=== PATIENT | male | born 1940 | race Caucasian/White ===

== ENCOUNTER 2019-06-12 10:18 | Outpatient (RCR) | payer MEDICARE, SELFPAY | END 2019-09-13 10:52 | disposition home or self-care (01) | LOC: CHSSENLIFE 10:18 | PROVIDERS: PCP Internal Medicine; Visit Provider Psychiatry & Neurology Psychiatry | DX: F41.1 Generalized anxiety disorder (principal); F32.9 Major depressive disorder, single episode, unspecified | CPT/HCPCS: 90837; 90853; 99214; G0463 ==

== ENCOUNTER 2019-08-08 09:54 | Outpatient (RCR) | payer MEDICARE, SELFPAY ==
--- NOTE | 2019-08-21 13:12 | PCPTNOTE ---
08/21/19- pt cancelled apt on 08/18/19. hm.
--- NOTE | 2019-08-31 07:51 | PTOPEVAL ---
Thank you for referring this patient to [facility]. Please review, sign, date and return this plan of care [facility]. I agree with and certify that the following plan of care is medically necessary. Referring Physician Date Admitting Provider: Attending Provider: Donnell Avendaño MD Referring Provider: *PT Outpatient Evaluation Start: 08/08/19 10:10 Freq: Status: Active Protocol: Document 08/08/19 10:10 [facility] (Rec: 08/08/19 11:02 [facility] [id number]) Therapy Assessment Status Assessment Status Assessment Status Evaluation Evaluation Information Problem Diagnosis BPPV, cervical DJD Onset 07/25/19 Subjective Information patient reports he has Query Text:As Reported By Patient/ dizziness and heavy eyes with Family walking 1/4 mile. he reports he also has loss of breath with this activity. he reports stopping and breathing relieves these symptoms. he reports he he does have tightness in the ribs during this activity. he reports he also has dizziness with shaking his head side to side. he reports nausea with his activities. he reports longer walking create greater symptoms. he reports this has been going on for about 2 months. he reports he has had a few cardiac tests done, but unsure of the results. Prior Level of Function Comments Additional Prior Level of Function prior to a month or so ago, Comments patient did have symptoms, but reports these symptoms were less than current. he reports prior to 4-5 months ago, no symptoms at all. Pain Assessment Timing of Pain Assessment Timing of Pain Assessment Assessment Self Report Self Report Pain Level 0 Pain Score Pain Score 0: Self Report Additional Pain Score Comments no pain in the neck. he reports no pain currently, mild tightness in the ribs posteriorly. Cervical and Lumbar ROM Cervical ROM Cervical Flexion (0-60) 35 Query Text:Active in Degrees Cervical Extension (0-70) 45 Query Text:Active in Degrees Cervical Lateral Flexion Right (0-50) 20 Q
== END 2019-10-13 16:40 | disposition home or self-care (01) ==
LOC: CHSPT 09:54
PROVIDERS: PCP Internal Medicine; Visit Provider Internal Medicine
DX: H81.10 Benign paroxysmal vertigo, unspecified ear (principal); M19.90 Unspecified osteoarthritis, unspecified site
CPT/HCPCS: 97014; 97110; 97161; 97530; G0283

== ENCOUNTER 2019-09-11 11:47 | Outpatient (CLI) | payer MEDICARE, SELFPAY ==
--- NOTE | 2019-09-11 12:30 | EST_ITS ---
Patient Info Name: Kan Lawson Age: 79 years : 1940 Gender: Male Ht: 67 in Wt: 227 lbs BSA: 2.25 m2 Exam Date: 09/11/2019 12:16 PM Exam Location: [facility] Patient Status: Outpatient Admit Date: 09/11/2019 Staff Ordering Physician: Garett Barker DO Attending Provider: DO ALDA Exam Type: CA stress test treadmill Summary 1. 1. Negative Lazarus exercise stress test for ischemic ST changes by ECG criteria. 2. 2. Good functional capacity, achieving 7.9 METs of workload. 3. 3. Appropriate HR response to exercise. 4. 4. Baseline hypertension with hypertensive response to exercise. 5. 5. Exercise-induced hypoxia to 84% oxygen saturation. 6. 6. Appropriate HR recovery at 1 minute post exercise. 7. 7. No imaging with stress testing. 8. 8. Patient informed of the above results. Protocol: Lazarus Stress ECG Details Stage: REST Duration (min): 2 min : 11 sec Speed (mph): 0.0 Grade (%): 0 HR (bpm): 70 SBP (mmHg): 187 DBP (mmHg): 64 METS: --- Stage: REST Duration (min): 20 min : 14 sec Speed (mph): 0.0 Grade (%): 0 HR (bpm): 73 SBP (mmHg): 160 DBP (mmHg): 72 METS: --- Stage: STAGE 1 Duration (min): 1 min : 0 sec Speed (mph): 1.7 Grade (%): 10 HR (bpm): 91 SBP (mmHg): 160 DBP (mmHg): 72 METS: --- Stage: STAGE 1 Duration (min): 2 min : 0 sec Speed (mph): 1.7 Grade (%): 10 HR (bpm): 100 SBP (mmHg): 160 DBP (mmHg): 72 METS: --- Stage: STAGE 1 Duration (min): 3 min : 0 sec Speed (mph): 1.7 Grade (%): 10 HR (bpm): 109 SBP (mmHg): 191 DBP (mmHg): 84 METS: --- Stage: STAGE 2 Duration (min): 1 min : 0 sec Speed (mph): 2.5 Grade (%): 12 HR (bpm): 116 SBP (mmHg): 191 DBP (mmHg): 84 METS: --- Stage: STAGE 2 Duration (min): 2 min : 0 sec Speed (mph): 2.5 Grade (%): 12 HR (bpm): 125 SBP (mmHg): 191 DBP (mmHg): 84 METS: --- Stage: STAGE 2 Duration (min): 3 min : 0 sec Speed (mph): 2.5 Grade (%): 12 HR (bpm): 134 SBP (mmHg): 214 DBP (mmHg): 68 METS: --- Stage: STAGE 3 Duration (min): 0 min : 30 sec Speed (mph): 3.4 Grade (%): 14 HR (bpm): 141 SBP (mmHg): 214 DBP (mmHg): 68 METS: --- Stage: RECOVERY Duration (min): 0 min : 29 sec Speed (mph): 0.0 Grade (%): 0 HR (bpm): 137 SBP (mmHg): 214 DBP (mmHg): 68 METS: --- Stage: RECOVERY Duration (min): 1 min : 29 sec Speed (mph): 0.0 Grade (%): 0 HR (bpm): 124 SBP (mmHg): 214 DBP (mmHg): 68 METS: --- Stage: RECOVERY Duration (min): 2 min : 29 sec Speed (mph): 0.0 Grade (%): 0 HR (bpm): 115 SBP (mmHg): 251 DBP (mmHg): 69 METS: --- Stage: RECOVERY Duration (min): 3 min : 29 sec Speed (mph): 0.0 Grade (%): 0 HR (bpm): 101 SBP (mmHg): 251 DBP (mmHg): 69
== END 2019-09-11 11:48 | disposition home or self-care (01) ==
PROVIDERS: PCP Internal Medicine; Visit Provider Internal Medicine Cardiovascular Disease
DX: R06.09 Other forms of dyspnea (principal)
CPT/HCPCS: 93017

== ENCOUNTER 2019-09-12 14:29 | Outpatient (RCR) | payer MEDICARE, SELFPAY | END 2019-11-01 15:14 | disposition home or self-care (01) | LOC: CHSSENLIFE 14:29 | PROVIDERS: PCP Internal Medicine; Visit Provider Psychiatry & Neurology Psychiatry | DX: F41.1 Generalized anxiety disorder (principal); F32.9 Major depressive disorder, single episode, unspecified | CPT/HCPCS: 90837; 90853; 99213; G0463 ==

== ENCOUNTER 2019-09-21 12:34 | Outpatient (CLI) | payer MEDICARE, SELFPAY | END 2019-09-21 12:35 | disposition home or self-care (01) | PROVIDERS: PCP Internal Medicine; Visit Provider Internal Medicine Cardiovascular Disease | DX: R06.09 Other forms of dyspnea (principal) | CPT/HCPCS: 94060; 94726; 94729 ==

== ENCOUNTER 2019-12-18 15:43 | Outpatient (CLI) | payer MEDICARE, SELFPAY ==
--- NOTE | ~2019-12-18 | XR_ITS ---
EXAMINATION: XR knee RT 3V EXAM DATE: 12/18/2019 16:23 INDICATION: Chronic bilateral knee pain. TECHNIQUE: Three projections of the right knee. Correlation is made to contralateral knee same date. FINDINGS: There is severe medial right knee tibiofemoral, moderate to severe patellofemoral and moder ate lateral tibiofemoral compartment primary osteoarthritis. There is chondrocalcinosis of the menis ci. Chondrocalcinosis can be an age related finding, but with other possible etiologies including CPP D, parathyroid disorders, hemochromatosis, gout. No joint effusion or acute fracture. IMPRESSION: 1. Severe right knee osteoarthritis. 2. Chondrocalcinosis. Reviewed, dictated and finalized at location G.
--- NOTE | ~2019-12-18 | XR_ITS ---
EXAMINATION: XR knee LT 3V EXAM DATE: 12/18/2019 16:23 INDICATION: Chronic bilateral knee pain. TECHNIQUE: Three projections of the left knee. Correlation is made to contralateral knee same date. FINDINGS: There is moderate to severe left patellofemoral and medial tibiofemoral primary osteoarthri tis. Faint meniscal calcifications, chondrocalcinosis. Chondrocalcinosis can be an age related findi ng, but with other possible etiologies including CPPD, parathyroid disorders, hemochromatosis, gout. Small joint effusion. There are no acute fractures identified. IMPRESSION: 1. Moderate to severe left knee osteoarthritis. 2. Chondrocalcinosis. 3. Small joint effusion. Reviewed, dictated and finalized at location G.
[2019-12-18 16:01] LABS: Basophils Absolute Auto 0.04 K/mm3 (0.00-0.10); Basophils Percent Auto 0.7 % (0.0-1.0); Eosinophils Absolute Auto 0.17 K/mm3 (0.02-0.50); Eosinophils Percent Auto 2.9 % (1.0-6.0); Hematocrit 43.8 % (37.0-46.0); Hemoglobin 15.1 g/dL (12.4-15.3); Immature Granulocyte Absolute 0.02 K/mm3 (0.00-0.00); Immature Granulocyte Percent A 0.3 % (0.0-0.0); Lymphocytes Absolute Auto 2.36 K/mm3 (1.10-4.50); Lymphocytes Percent Auto 39.9 % (18.0-42.0); Mean Corpuscular HGB Conc 34.5 g/dL (32.0-36.0); Mean Corpuscular Hemoglobin 31.3 pg (27.0-31.0); Mean Corpuscular Volume 90.9 fL (78.0-102.0); Mean Platelet Volume 9.6 fl (8.7-11.0); Monocytes Absolute Auto 0.46 K/mm3 (0.10-0.90); Monocytes Percent Auto 7.8 % (2.0-11.0); Neutrophils Absolute Auto 2.9 K/mm3 (1.7-7.2); Neutrophils Percent Auto 48.4 % (50.0-70.0); Platelet Count Result 222 K/mm3 (150-420); Red Blood Count 4.82 M/mm3 (4.70-6.10); Red Cell Distribution Width 13.2 % (11.6-14.4); White Blood Count 5.9 K/mm3 (4.8-10.8)
[2019-12-18 16:32] LABS: Hemoglobin A1C 6.3 % (<5.7)
[2019-12-18 16:39] LABS: Alanine Aminotransferase 36 U/L (16-63); Albumin Level 4.3 g/dL (3.4-5.0); Alkaline Phosphatase 77 U/L (46-116); Anion Gap 14.5 mmol/L (7-16); Aspartate Amino Transferase 27 U/L (15-37); Bilirubin,Total 0.4 mg/dL (0.00-1.00); Blood Urea Nitrogen 20 mg/dL (7-18); Calcium 9.2 mg/dL (8.5-10.1); Carbon Dioxide 27 mmol/L (21-32); Chloride 104 mmol/L (98-108); Cholesterol 172 mg/dL (0-200); Estimated Glomerular Filt Rate > 60; Glucose 102 mg/dL (70-99); HDL Direct 39 mg/dL (40-60); LDL Cholesterol Calculated 93 mg/dL (<130); Osmolality Calculated 294 mOsm/kg (285-295); Potassium 4.5 mmol/L (3.5-5.1); Sodium 141 mmol/L (136-145); Total Protein 7.4 g/dL (6.4-8.2); Triglycerides 201 mg/dL (0-150); Uric Acid 7.6 mg/dL (3.5-7.2)
== END 2019-12-18 15:44 | disposition home or self-care (01) ==
LOC: CHSLAB 15:46
PROVIDERS: PCP Internal Medicine; Visit Provider Internal Medicine
DX: E78.5 Hyperlipidemia, unspecified (principal); E11.9 Type 2 diabetes mellitus without complications; I10 Essential (primary) hypertension; M25.562 Pain in left knee; M25.561 Pain in right knee
CPT/HCPCS: 36415; 73562; 80053; 80061; 83036; 84550; 85025

== ENCOUNTER 2019-12-21 10:22 | Outpatient (RCR) | payer MEDICARE, SELFPAY ==
--- NOTE | 2019-12-21 12:56 | PTOPEVAL ---
Thank you for referring Kan Lawson to [facility]. Please review, sign, date and return this plan of care [facility]. I agree with and certify that the following plan of care is medically necessary. Referring Physician Date Admitting Provider: Attending Provider: Donnell Avendaño MD Referring Provider: *PT Outpatient Evaluation Start: 12/21/19 10:30 Freq: Status: Active Protocol: Document 12/21/19 10:25 [facility] (Rec: 12/21/19 10:56 [facility] [id number]) Therapy Assessment Status Assessment Status Assessment Status Evaluation Outpatient Past Medical History Cardiovascular History Hx Hypercholesterolemia Yes Hx Hypertension Yes Gastrointestinal History Hx Hernia Yes Musculoskeletal History Hx Arthritis Yes Endocrine History Hx Diabetes Yes Psychosocial History Hx Anxiety Yes Evaluation Information Problem Diagnosis bialteral knee pain Onset 09/09/19 Subjective Information Pt. reports that he has had Query Text:As Reported By Patient/ knee pain for many years. He Family reports that he continues to have difficulty and had recent flare up a few months ago. He describes pain on the inside of the bilateral knee joints. He reports that pain stays localized to the knee. He reports that he has undergone xray which has revealed bad arthritis. He reports that his goal for therapy is to be able to walk with less pain and improve mobility. Prior Level of Function Activity Level (Last 3 Months) Occupation retired Hand Dominance Right Activity of Daily Living Ability Independent Indoor/Home Mobility Independent Community Mobility Independent Stairs Ability Independent Functional Cognition (Planning, Shopping Independent , Taking Medications) Cooking Yes Cleaning Yes Laundry Yes Shopping Yes Driving Yes Pain Assessment Pain Scale Pain Scale Used Numeric (1 - 10) Self Report Pain Assessment Bilateral Knee(s) Reported Pain Level 7 Pain Description Aching Other Alleviating Interventions cortisone injections Pain Score Pain S
== END 2020-01-17 15:50 | disposition home or self-care (01) ==
LOC: CHSPT 10:22
PROVIDERS: PCP Internal Medicine; Visit Provider Internal Medicine
DX: M25.562 Pain in left knee (principal); M25.561 Pain in right knee; M17.0 Bilateral primary osteoarthritis of knee
CPT/HCPCS: 97014; 97110; 97161; 97530; G0283

== ENCOUNTER 2020-01-13 00:38 | Outpatient (CLI) | payer MEDICARE, SELFPAY ==
[2020-01-13 16:39] LABS: SARS-CoV-2 RNA PCR Negative
== END 2020-01-13 00:39 | disposition home or self-care (01) ==
LOC: ANHCOVIDDT 00:39
PROVIDERS: PCP Internal Medicine; Visit Provider Internal Medicine Gastroenterology
DX: Z01.818 Encounter for other preprocedural examination (principal); Z11.59 Encounter for screening for other viral diseases
CPT/HCPCS: 87635; C9803; U0003

== ENCOUNTER 2020-01-16 01:09 | Day surgery (SDC) | payer MEDICARE, SELFPAY ==
[2020-01-11 15:27] VITALS: BMI 33.5
[2020-01-16 08:27] VITALS: BP 153/78; PULSE 68; RESP 18; TEMP 37.1; O2SAT 96
[2020-01-16] MEDS: LACTATED RINGERS 1,000 ML 150 ML IV CONT (08:40)
[2020-01-16 08:41] LABS: Glucose Point of Care 101 (65-105)
--- NOTE | 2020-01-16 09:02 | WPDANESEPPF ---
Anes - Initial Pre Proc Eval Procedure: Operation Date: 01/16/20 09:45 Proposed Procedures p Screening Colonoscopy - Antonio Moffett MD Date/Time: 01/16/20 09:02 Surgeon: Antonio Moffett MD Pre Op Diagnosis: neoplasm screening Patient Data Age: 79 Gender: M Height: 5 ft 8 in Weight: 103.3 kg Last Vital Signs Temp 98.7 F 01/16/20 08:27 Pulse 68 01/16/20 08:27 Resp 18 01/16/20 08:27 BP 153/78 H 01/16/20 08:27 Pulse Ox 96 01/16/20 08:27 Allergies Allergy/AdvReac Type Severity Reaction Status Date / Time No Known Allergies Allergy Verified 01/16/20 08:25 Home Medications Medication Instructions Recorded Confirmed Type fluticasone propionate 50 1 spray NASAL DAILY 07/18/19 01/16/20 History mcg/actuation nasal spray,suspension losartan 25 mg tablet 25 mg PO DAILY 07/18/19 01/16/20 History lovastatin 40 mg tablet 40 mg PO DAILY 07/18/19 01/16/20 History terazosin 10 mg capsule 10 mg PO DAILY 07/18/19 01/16/20 History aspirin [Aspirin Low Dose] 81 mg PO DAILY 08/21/19 01/16/20 History famotidine 40 mg PO DAILY 08/21/19 01/16/20 History metformin 250 mg PO DAILY 08/21/19 01/16/20 History duloxetine 60 mg capsule,delayed 60 mg PO DAILY 09/05/19 01/16/20 History release Laboratory Tests 01/16/20 08:35 POC Capillary Glucose 101 mg/dl mg/dl (65-105) Patient hx anesthesia problems: none Family hx anesthesia problems: none PMFSH Past Medical History Medical History (System 11/03/19 @ 10:21 by Irma Schreiber) Anxiety Arthritis BPH (benign prostatic hyperplasia) Depression Hyperlipemia Hypertension Type 2 diabetes mellitus Surgical History Surgical History (System 11/03/19 @ 10:21 by Irma Schreiber) History of cataract removal with insertion of prosthetic lens bilateral History of colonoscopy 2015 History of laparoscopic cholecystectomy 2012 S/P ACL repair Status post meniscectomy BL knee medial Social History Social History (System 11/03/19 @ 10:21 by Irma Alves Smoking status: Former smoker Tobacco type: cigars Alcohol intake: current Anes - Eval Final PreProcedure Day of Procedure 01/16/20 09:02 Patient weight: obese Heart: regular rate and rhythm Lungs: clear to auscultation Airway: Mallampati scale class II Neurological: alert and oriented Last oral intake: >/= 8 hours ASA classification: III Emergent: no Anesthetic plan: proceed Anesthesia type and monitoring: general GIVS and standard monitoring Informed Consent: The patient's anesthetic plan and its attendant risks and benefits were discussed with the patient/family/POA. Questions were solicited and answers provided to the satisfaction of the patient/family/POA.
--- NOTE | 2020-01-16 10:20 | PM.HPGS ---
History of Present Illness History of Present Illness Consent: Risks, benefits, and alternatives have been discussed and questions answered. Patient agrees to proceed with procedure. Chief complaint: neoplasm screening Narrative: Kan Lawson is a 79 year old male with colon polyps 2016 Review of Systems Constitutional: Constitutional: Denies headache(s) and Denies weakness Eyes: Eyes: Denies blurry vision ENT: Reports Normal hearing present, Denies headache(s) and Denies neck pain Cardiovascular: Cardiovascular: Denies chest pain and Denies dyspnea Respiratory: Respiratory: Denies dyspnea Gastrointestinal: Gastrointestinal: Reports no additional gastrointestinal complaints Genitourinary: Genitourinary: Denies dysuria Musculoskeletal: Musculoskeletal: Denies neck pain Integumentary/Breasts: Skin/Breast: Denies dry skin Neurologic: Reports Normal hearing present, Denies headache(s) and Denies weakness Psychiatric: Psychiatric: Denies anxiety Endocrine: Endocrine: Denies change in body appearance Hematologic/Lymphatic: Hematologic/Lymphatic: Denies easy bleeding Allergic/Immunologic: Allergic/Immunologic: Denies urticaria PMFSH Past Medical History Medical History (Updated 01/16/20 @ 10:20 by Antonio Moffett MD) Adenomatous colon polyp Anxiety Arthritis BPH (benign prostatic hyperplasia) Depression Hyperlipemia Hypertension Type 2 diabetes mellitus Surgical History Surgical History (System 11/03/19 @ 10:21 by Irma Schreiber) History of cataract removal with insertion of prosthetic lens bilateral History of colonoscopy 2016 History of laparoscopic cholecystectomy 2013 S/P ACL repair Status post meniscectomy BL knee medial Social History Social History (System 11/03/19 @ 10:21 by Irma Schreiber) Smoking status: Former smoker Tobacco type: cigars Alcohol intake: current Meds Home Medications and Allergies Home Medications Medication Instructions Recorded Confirmed Type fluticasone propionate 50 1 spray NASAL DAILY 07/18/19 01/16/20 History mcg/actuation nasal spray,suspension losartan 25 mg tablet 25 mg PO DAILY 07/18/19 01/16/20 History lovastatin 40 mg tablet 40 mg PO DAILY 07/18/19 01/16/20 History terazosin 10 mg capsule 10 mg PO DAILY 07/18/19 01/16/20 History aspirin [Aspirin Low Dose] 81 mg PO DAILY 08/21/19 01/16/20 History famotidine 40 mg PO DAILY 08/21/19 01/16/20 History metformin 250 mg PO DAILY 08/21/19 01/16/20 History duloxetine 60 mg capsule,delayed 60 mg PO DAILY 09/05/19 01/16/20 History release Allergies Allergy/AdvReac Type Severity Reaction Status Date / Time No Known Allergies Allergy Verified 01/16/20 08:25 Vital Signs Vital Signs - 24 hr 01/16/20 08:27 Temperature 98.7 F Pulse Rate 68 Respiratory Rate 18 Blood Pressure 153/78 H Pulse Oximetry 96 Exam Const: General: comfortable and no acute distress HENMT: General nose exam: Normal nares present Eyes: General: appearance normal, both eyes and all related structures Neck: Neck: no JVD Resp: Auscultation: clear to auscultation bilaterally Cardio: Rate: regular rate Rhythm: regular rhythm GI: Inspection: non-distended GI Palp: Yes Soft to palpation Skin: General skin exam: normal color Neuro: General: gait normal Speech: normal speech Extrem: General: normal to inspection Psych: Mental Status: mental status grossly normal Assessment and Plan Assessment and plan (1) Adenomatous colon polyp: Code(s): D12.6 - Benign neoplasm of colon, unspecified Status: Acute Assessment and Plan: will proceed with colonoscopy (2) Hypertension: Code(s): I10 - Essential (primary) hypertension Status: Acute (3) Hyperlipemia: Code(s): E78.5 - Hyperlipidemia, unspecified Status: Acute
[2020-01-16 11:00] VITALS: BP 118/68; PULSE 66; RESP 21; O2SAT 94
[2020-01-16 11:10] VITALS: BP 126/62; PULSE 60; RESP 19; O2SAT 93
[2020-01-16 11:20] VITALS: BP 164/80; PULSE 68; RESP 21; O2SAT 96
== END 2020-01-16 11:38 | disposition home or self-care (01) ==
PROVIDERS: PCP Internal Medicine; Visit Provider Internal Medicine Gastroenterology
PROC: 0DJD8ZZ Inspection of Lower Intestinal Tract, Via Natural or Artificial Opening Endoscopic (ICD-10-PCS; CPT 45378; principal; 2020-01-16 09:45)
DX: Z12.11 Encounter for screening for malignant neoplasm of colon (principal); D12.2 Benign neoplasm of ascending colon; K57.30 Diverticulosis of large intestine without perforation or abscess without bleeding; K64.8 Other hemorrhoids; I10 Essential (primary) hypertension; E11.9 Type 2 diabetes mellitus without complications; Z79.84 Long term (current) use of oral hypoglycemic drugs; E78.5 Hyperlipidemia, unspecified; F32.9 Major depressive disorder, single episode, unspecified; F41.9 Anxiety disorder, unspecified; Z87.891 Personal history of nicotine dependence
CPT/HCPCS: 45385; 88305; J2704; J7120

== ENCOUNTER 2020-06-19 10:16 | Outpatient (CLI) | payer MEDICARE, SELFPAY ==
[2020-06-19 10:48] LABS: Hemoglobin A1C 6.4 % (<5.7)
[2020-06-19 12:28] LABS: Alanine Aminotransferase 30 U/L (16-63); Albumin Level 3.9 g/dL (3.4-5.0); Alkaline Phosphatase 67 U/L (46-116); Anion Gap 10 mmol/L (8-16); Aspartate Amino Transferase 17 U/L (15-37); Bilirubin,Total 0.4 mg/dL (0.00-1.00); Blood Urea Nitrogen 21 mg/dL (7-18); Calcium 8.8 mg/dL (8.5-10.1); Carbon Dioxide 26 mmol/L (21-32); Chloride 105 mmol/L (98-108); Cholesterol 181 mg/dL (0-200); Estimated Glomerular Filt Rate > 60; Glucose 113 mg/dL (70-99); HDL Direct 35 mg/dL (40-60); LDL Cholesterol Calculated 102 mg/dL (<130); Osmolality Calculated 296 mOsm/kg (285-295); Potassium 4.5 mmol/L (3.5-5.1); Sodium 141 mmol/L (136-145); Triglycerides 220 mg/dL (0-150)
== END 2020-06-19 10:17 | disposition home or self-care (01) ==
LOC: CHSLAB 10:18
PROVIDERS: PCP Internal Medicine; Visit Provider Internal Medicine
DX: E78.5 Hyperlipidemia, unspecified (principal); E11.9 Type 2 diabetes mellitus without complications
CPT/HCPCS: 36415; 80053; 80061; 83036

== ENCOUNTER 2020-11-26 10:57 | Outpatient (CLI) | payer MEDICARE, SELFPAY ==
[2020-11-26 11:10] LABS: Basophils Absolute Auto 0.03 K/mm3 (0.00-0.10); Basophils Percent Auto 0.5 % (0.0-1.0); Eosinophils Absolute Auto 0.19 K/mm3 (0.02-0.50); Eosinophils Percent Auto 3.2 % (1.0-6.0); Hematocrit 46.4 % (37.0-46.0); Hemoglobin 15.9 g/dL (12.4-15.3); Immature Granulocyte Absolute 0.02 K/mm3 (0.00-0.00); Immature Granulocyte Percent A 0.3 % (0.0-0.0); Lymphocytes Absolute Auto 2.09 K/mm3 (1.10-4.50); Lymphocytes Percent Auto 35.1 % (18.0-42.0); Mean Corpuscular HGB Conc 34.3 g/dL (32.0-36.0); Mean Corpuscular Hemoglobin 31.7 pg (27.0-31.0); Mean Corpuscular Volume 92.6 fL (78.0-102.0); Mean Platelet Volume 9.8 fl (8.7-11.0); Monocytes Absolute Auto 0.42 K/mm3 (0.10-0.90); Neutrophils Absolute Auto 3.2 K/mm3 (1.7-7.2); Neutrophils Percent Auto 53.9 % (50.0-70.0); Platelet Count Result 240 K/mm3 (150-420); Red Blood Count 5.01 M/mm3 (4.70-6.10); Red Cell Distribution Width 13.4 % (11.6-14.4)
[2020-11-26 11:43] LABS: Hemoglobin A1C 6.5 % (<5.7)
[2020-11-26 12:05] LABS: Alanine Aminotransferase 31 U/L (16-63); Albumin Level 4.1 g/dL (3.4-5.0); Alkaline Phosphatase 80 U/L (46-116); Anion Gap 8 mmol/L (8-16); Aspartate Amino Transferase 19 U/L (15-37); Bilirubin,Total 0.6 mg/dL (0.00-1.00); Blood Urea Nitrogen 15 mg/dL (7-18); Calcium 9.1 mg/dL (8.5-10.1); Carbon Dioxide 30 mmol/L (21-32); Chloride 103 mmol/L (98-108); Cholesterol 140 mg/dL (0-200); Estimated Glomerular Filt Rate > 60; Glucose 125 mg/dL (70-99); HDL Direct 34 mg/dL (40-60); LDL Cholesterol Calculated 73 mg/dL (<130); Osmolality Calculated 293 mOsm/kg (285-295); Potassium 4.4 mmol/L (3.5-5.1); Prostate Specific Antigen 0.3 ng/mL (< OR = 4.0); Sodium 141 mmol/L (136-145); Total Protein 7.3 g/dL (6.4-8.2); Triglycerides 167 mg/dL (0-150)
== END 2020-11-26 10:58 | disposition home or self-care (01) ==
LOC: CHSLAB 11:00
PROVIDERS: PCP Internal Medicine; Visit Provider Internal Medicine
DX: E11.9 Type 2 diabetes mellitus without complications (principal); I10 Essential (primary) hypertension; E78.5 Hyperlipidemia, unspecified; Z12.5 Encounter for screening for malignant neoplasm of prostate
CPT/HCPCS: 36415; 80053; 80061; 83036; 84153; 85025; G0103

== ENCOUNTER 2021-02-12 11:19 | Emergency (ER) | payer MEDICARE, SELFPAY ==
[2021-02-12 11:38] VITALS: BP 154/98; PULSE 73; RESP 16; TEMP 37; O2SAT 96
[2021-02-12 12:04] LABS: Add Urine Microscopic? YES; Appearance Urine Clear (Clear); Bacteria Urine 1+ /hpf; Bilirubin Urine Negative (Negative); Blood Urine Negative (Negative); Color Urine Light Yellow (Yellow); Glucose Urine UA Negative (Negative); Ketones Urine Negative (Negative); Leukocyte Esterase Ur 1+ (Negative); Nitrate Urine Negative (Negative); Protein Urine Negative (Negative); RBC Urine None seen /hpf (0-2); Squamous Epithelial Cell Urine Rare /hpf (Few)
--- NOTE | 2021-02-12 12:10 | ED.MALEGU ---
HPI - Male Genitourinary General Chief complaint: Urogenital-Male Stated complaint: possible UTI Time Seen by Provider: 02/12/21 12:10 Source: patient Mode of arrival: ambulatory Limitations: no limitations History of Present Illness HPI Narrative: 80-year-old man with a history of UTI, type 2 diabetes, hypertension, hiatal hernia, and dyslipidemia comes emergency department complaining of feeling malaise , urinary frequency and change in the color of his urine for the last 2 or 3 days. He has had no fever, nausea, vomiting, abdominal pain, blood in his urine, feeling faint or syncope. He denies abdominal and flank pain. Onset (ago): day(s) (3) Duration: constant Severity: mild Relieving factors: urination Associated symptoms: Reports denies other symptoms Related Data Home Medications Medication Instructions Recorded Confirmed fluticasone propionate 50 1 spray NASAL DAILY 07/18/19 02/12/21 mcg/actuation nasal spray,suspension losartan 25 mg tablet 25 mg PO DAILY 07/18/19 02/12/21 lovastatin 40 mg tablet 40 mg PO DAILY 07/18/19 02/12/21 terazosin 10 mg capsule 10 mg PO DAILY 07/18/19 02/12/21 aspirin [Aspirin Low Dose] 81 mg PO DAILY 08/21/19 02/12/21 famotidine 40 mg PO DAILY 08/21/19 02/12/21 metformin 250 mg PO DAILY 08/21/19 02/12/21 duloxetine 60 mg capsule,delayed 60 mg PO DAILY 09/05/19 02/12/21 release omega-3 fatty acids 1,000 mg 1,000 mg PO DAILY 11/04/20 02/12/21 capsule Allergies Allergy/AdvReac Type Severity Reaction Status Date / Time No Known Allergies Allergy Verified 11/04/20 15:12 Review of Systems Review of Systems: All systems reviewed & are unremarkable except as noted in HPI and below Constitutional: Constitutional: Denies chills and Denies fever(s) Eyes: Eyes: Denies change in vision and Denies photophobia ENT: Denies nasal congestion and Denies sore throat Cardiovascular: Cardiovascular: Denies chest pain and Denies radiating jaw, neck or arm pain Respiratory: Respiratory: Denies cough and Denies dyspnea Gastrointestinal: Gastrointestinal: Denies abdominal pain and Denies vomiting Genitourinary: Genitourinary: Denies hematuria, Denies dysuria and Reports urinary frequency Musculoskeletal: Musculoskeletal: Denies back pain, Denies arthralgias and Denies joint swelling Integumentary/Breasts: Skin/Breast: Denies pruritus, Denies erythema and Denies rash Neurologic: Denies dizziness, Denies syncope, Denies focal weakness and Reports weakness (mild) Hematologic/Lymphatic: Hematologic/Lymphatic: Denies easy bleeding and Denies easy bruising Allergic/Immunologic: Allergic/Immunologic: Denies lip swelling and Denies throat swelling PMFSH Past Medical History Medical History Adenomatous colon polyp Anxiety Arthritis BPH (benign prostatic hyperplasia) Depression Hyperlipemia Hypertension Type 2 diabetes mellitus Surgical History Surgical History History of cataract removal with insertion of prosthetic lens bilateral History of colonoscopy 2015 History of laparoscopic cholecystectomy 2012 S/P ACL repair Status post meniscectomy BL knee medial Family History Family History (System 11/03/19 @ 10:21 by Irma Schreiber) Father Diabetes mellitus Coronary artery abnormality Mother Anxiety Sibling Lung cancer Social History Social History Smoking status: Former smoker Tobacco type: cigars Alcohol intake: current Exam Const: General: healthy appearing, no acute distress and alert Orientation/consciousness: patient oriented x3 Limitations: no limitations HENMT: Head: normal to inspection General nose exam: Normal external nose present Face and sinus: normal facial exam Mouth: Yes moist mucous membranes Throat: posterior oropharynx normal Eyes: Conjunctivae: conj
[2021-02-12 12:36] VITALS: BP 138/72; PULSE 73; RESP 16; O2SAT 97
== END 2021-02-12 12:40 | disposition home or self-care (01) ==
PROVIDERS: Emergency Provider Emergency Medicine; PCP Internal Medicine
DX: N39.0 Urinary tract infection, site not specified (principal)
CPT/HCPCS: 81001; 87077; 87086; 87088; 87186; 99283

== ENCOUNTER 2021-04-04 15:19 | Outpatient (NON) | payer MEDICARE, SELFPAY ==
[2021-04-04 16:01] LABS: Add Urine Microscopic? YES; Appearance Urine Clear (Clear); Bilirubin Urine Negative (Negative); Blood Urine Negative (Negative); Color Urine Light Yellow (Yellow); Glucose Urine UA Negative (Negative); Ketones Urine Negative (Negative); Leukocyte Esterase Ur 3+ (Negative); Nitrate Urine Negative (Negative); Protein Urine Negative (Negative); Specific Grav Ur <= 1.005 (1.010-1.020); Urobilinogen Urine 0.2 mg/dL (0.2-1.0)
[2021-04-04 16:20] LABS: RBC Urine 0-2 /hpf (0-2)
[2021-04-04 16:21] LABS: Bacteria Urine Trace /hpf; Squamous Epithelial Cell Urine Few /hpf (Few)
== END 2021-04-04 15:20 | disposition home or self-care (01) ==
LOC: CHSLAB 15:20
PROVIDERS: Visit Provider Urology
DX: N39.0 Urinary tract infection, site not specified (principal)
CPT/HCPCS: 81001; 87077; 87086; 87088; 87186

== ENCOUNTER 2021-04-18 19:23 | Emergency (ER) | payer MEDICARE, SELFPAY ==
--- NOTE | ~2021-04-18 | CT_ITS ---
EXAMINATION: CT brain wo con DATE: 04/18/2021 20:23 INDICATION: Dizziness and weakness TECHNIQUE: Computed tomography (CT) of the head was performed without intravenous contrast. The dose- length product was 681.00 mGy-cm. Automated exposure control and iterative reconstruction technique w ere employed. COMPARISON: CT dated 04/01/2019 FINDINGS: There are chronic age-related findings. There are scattered mild periventricular and subcor tical white matter changes, most likely related to small vessel ischemic disease (microangiopathy). N o ventriculomegaly or midline shift. No acute intracranial hemorrhage, infarction, mass or mass effec t. Basilar cisterns are patent. There is intracranial atherosclerosis. 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 No abnormal fluid or air-fluid levels. Mastoids are pneumatized. No depressed sku ll fractures. IMPRESSION: 1. No acute intracranial abnormality. Reviewed, dictated and finalized at location A.
--- NOTE | ~2021-04-18 | XR_ITS ---
XR chest 1V portable 04/18/2021 20:22 Indication: Weakness and dizziness Procedure: AP portable chest Comparison: 08/21/2019 Findings: Heart size normal. Left basilar atelectasis. No focal pneumonia, edema, pleural effusion or pneumothorax. Impression: 1: Left basilar atelectasis. Reviewed, dictated and finalized at location A. Impression: 1: Left basilar atelectasis.
[2021-04-18 19:43] VITALS: BP 164/93; PULSE 92; RESP 16; TEMP 37; O2SAT 95
[2021-04-18 19:46] VITALS: BP 153/81; PULSE 104; RESP 16; O2SAT 96
[2021-04-18 19:47] LABS: Add Urine Microscopic? NO; Appearance Urine Clear (Clear); Bilirubin Urine Negative (Negative); Blood Urine Negative (Negative); Color Urine Light Yellow (Yellow); Glucose Urine UA Negative (Negative); Ketones Urine Negative (Negative); Leukocyte Esterase Ur Negative LEU/UL (Negative); Nitrate Urine Negative (Negative); Protein Urine Negative (Negative); Urobilinogen Urine 0.2 mg/dL (0.2-1.0); pH Urine 5.5 (5.0-8.0)
--- NOTE | 2021-04-18 19:54 | ECG_ITS ---
Measurements Intervals [place] Rate: 65 P: 66 NH: 192 QRS: 15 QRSD: 112 T: 35 QT: 396 QTc: 414 Interpretive Statements SINUS RHYTHM DELAYED PRECORDIAL R/S TRANSITION BASELINE ARTIFACT- I, II, III, AVR, AVL, AVF, V1-V3 NORMAL ECG Electronically Signed On 04-21-2021 7:51:06 CDT by Garett Barker D.O.
[2021-04-18] MEDS: SODIUM CHLORIDE 0.9% IV 500 ML 999 ML IV CONT (20:15)
[2021-04-18 20:29] LABS: Basophils Absolute Auto 0.04 K/mm3 (0.00-0.10); Basophils Percent Auto 0.5 % (0.0-1.0); Eosinophils Absolute Auto 0.09 K/mm3 (0.02-0.50); Eosinophils Percent Auto 1.1 % (1.0-6.0); Hematocrit 42.2 % (37.0-46.0); Hemoglobin 14.6 g/dL (12.4-15.3); Immature Granulocyte Absolute 0.03 K/mm3 (0.00-0.00); Immature Granulocyte Percent A 0.4 % (0.0-0.0); Lymphocytes Absolute Auto 2.31 K/mm3 (1.10-4.50); Lymphocytes Percent Auto 28.4 % (18.0-42.0); Mean Corpuscular HGB Conc 34.6 g/dL (32.0-36.0); Mean Corpuscular Hemoglobin 31.8 pg (27.0-31.0); Mean Corpuscular Volume 91.9 fL (78.0-102.0); Mean Platelet Volume 9.6 fl (8.7-11.0); Monocytes Absolute Auto 0.43 K/mm3 (0.10-0.90); Monocytes Percent Auto 5.3 % (2.0-11.0); Neutrophils Absolute Auto 5.2 K/mm3 (1.7-7.2); Neutrophils Percent Auto 64.3 % (50.0-70.0); Platelet Count Result 251 K/mm3 (150-420); Red Blood Count 4.59 M/mm3 (4.70-6.10); Red Cell Distribution Width 12.8 % (11.6-14.4); White Blood Count 8.1 K/mm3 (4.8-10.8)
[2021-04-18 20:46] LABS: Alanine Aminotransferase 38 U/L (16-63); Albumin Level 4.2 g/dL (3.4-5.0); Alkaline Phosphatase 79 U/L (46-116); Anion Gap 10 mmol/L (8-16); Aspartate Amino Transferase 19 U/L (15-37); Bilirubin,Total 0.4 mg/dL (0.00-1.00); Blood Urea Nitrogen 15 mg/dL (7-18); Calcium 9.4 mg/dL (8.5-10.1); Carbon Dioxide 27 mmol/L (21-32); Chloride 101 mmol/L (98-108); Estimated CRCL calculation 35 ml/min; Estimated Glomerular Filt Rate 59; Glucose 109 mg/dL (70-99); Osmolality Calculated 287 mOsm/kg (285-295); Potassium 4.2 mmol/L (3.5-5.1); Sodium 138 mmol/L (136-145); Total Protein 7.5 g/dL (6.4-8.2); Troponin I 5.3 ng/L (0.00-60.4)
--- NOTE | 2021-04-18 21:11 | ED.GENADULT ---
HPI - General Adult General Chief complaint: Unspecified Stated complaint: dizziness upon standing/making large movements Time Seen by Provider: 04/18/21 19:45 Source: patient and RN notes reviewed Mode of arrival: ambulatory Limitations: no limitations History of Present Illness complaint: resolved dizziness episode x several hrs ago. no acute sxs in the ED. Onset (ago): hour(s) (6) Severity: mild Quality: other (no dizziness or light-headedness in the ED) Pain Consistency: other (pt was pain-free in the ED) Relieving factors: none Exacerbating factors: none Associated symptoms: denies other symptoms Treatments prior to arrival: none Related Data Home Medications Medication Instructions Recorded Confirmed fluticasone propionate 50 1 spray NASAL DAILY 07/18/19 04/18/21 mcg/actuation nasal spray,suspension losartan 25 mg tablet 25 mg PO DAILY 07/18/19 04/18/21 lovastatin 40 mg tablet 40 mg PO DAILY 07/18/19 04/18/21 terazosin 10 mg capsule 10 mg PO DAILY 07/18/19 04/18/21 aspirin [Aspirin Low Dose] 81 mg PO DAILY 08/21/19 04/18/21 famotidine 40 mg PO DAILY 08/21/19 04/18/21 metformin 250 mg PO DAILY 08/21/19 04/18/21 duloxetine 60 mg capsule,delayed 60 mg PO DAILY 09/05/19 04/18/21 release omega-3 fatty acids 1,000 mg 1,000 mg PO DAILY 11/04/20 04/18/21 capsule Allergies Allergy/AdvReac Type Severity Reaction Status Date / Time No Known Allergies Allergy Verified 11/04/20 15:12 Review of Systems Review of Systems: All systems reviewed & are unremarkable except as noted in HPI and below PMFSH Past Medical History Medical History Adenomatous colon polyp Anxiety Arthritis BPH (benign prostatic hyperplasia) Depression Hyperlipemia Hypertension Type 2 diabetes mellitus Surgical History Surgical History History of cataract removal with insertion of prosthetic lens bilateral History of colonoscopy 2015 History of laparoscopic cholecystectomy 2013 S/P ACL repair Status post meniscectomy BL knee medial Family History Family History (System 11/03/19 @ 10:21 by Irma Schreiber) Father Diabetes mellitus Coronary artery abnormality Mother Anxiety Sibling Lung cancer Social History Social History Smoking status: Former smoker Tobacco type: cigars Alcohol intake: current Exam Const: General: cooperative, no acute distress and well developed Orientation/consciousness: patient oriented x3 Limitations: no limitations HENMT: Head: normocephalic and atraumatic Ears: hearing grossly normal bilaterally, external ears normal and TM's normal bilaterally General nose exam: Normal external nose present and Normal nares present Face and sinus: normal facial exam Mouth: Yes Normal oral and palatal mucosa present, Yes lip normal, Yes tongue normal and Yes moist mucous membranes Teeth and gingiva: dentition normal Throat: posterior oropharynx normal Eyes: General: appearance normal, both eyes and all related structures Visual Hill: normal visual hill by confrontation Periorbital: periorbital findings normal Eyelids: eyelids normal Conjunctivae: conjunctivae normal Pupils: Equal, round and reactive pupils present EOM: EOMs intact bilaterally Neck: Neck: normal visual inspection, full ROM, no lymphadenopathy and no meningeal signs Chest: Chest palpation & inspection: normal inspection of the chest Resp: Effort & Inspection: normal respiratory effort Auscultation: clear to auscultation bilaterally Percussion: percussion normal Cardio: Rate: regular rate Rhythm: regular rhythm GI: Inspection: normal to inspection GI Palp: Yes Soft to palpation Percussion: Yes normal to percussion Auscultation: normal bowel sounds : General: Yes bladder normal to palpation Back/Spine/Pelvis: Back: no CVA tend
[2021-04-18 21:20] VITALS: BP 150/74; PULSE 90; RESP 19; TEMP 36.6; O2SAT 98
== END 2021-04-18 21:30 | disposition home or self-care (01) ==
PROVIDERS: Emergency Provider Emergency Medicine; PCP Internal Medicine
DX: R42 Dizziness and giddiness (principal); T67.2XXA Heat cramp, initial encounter; E78.5 Hyperlipidemia, unspecified; I10 Essential (primary) hypertension; E11.9 Type 2 diabetes mellitus without complications; Z87.891 Personal history of nicotine dependence
CPT/HCPCS: 36415; 70450; 71045; 80053; 81003; 83605; 84484; 85025; 93005; 96360; 99283; 99284; J7040

== ENCOUNTER 2021-08-05 11:05 | Outpatient (CLI) | payer MEDICARE, SELFPAY ==
[2021-08-05 11:26] LABS: Basophils Absolute Auto 0.03 K/mm3 (0.00-0.10); Basophils Percent Auto 0.5 % (0.0-1.0); Eosinophils Absolute Auto 0.16 K/mm3 (0.02-0.50); Eosinophils Percent Auto 2.8 % (1.0-6.0); Hematocrit 45.9 % (37.0-46.0); Hemoglobin 15.5 g/dL (12.4-15.3); Immature Granulocyte Absolute 0.02 K/mm3 (0.00-0.00); Immature Granulocyte Percent A 0.4 % (0.0-0.0); Lymphocytes Percent Auto 33.4 % (18.0-42.0); Mean Corpuscular HGB Conc 33.8 g/dL (32.0-36.0); Mean Corpuscular Hemoglobin 32.2 pg (27.0-31.0); Mean Corpuscular Volume 95.4 fL (78.0-102.0); Mean Platelet Volume 9.3 fl (8.7-11.0); Monocytes Absolute Auto 0.41 K/mm3 (0.10-0.90); Monocytes Percent Auto 7.2 % (2.0-11.0); Neutrophils Absolute Auto 3.2 K/mm3 (1.7-7.2); Neutrophils Percent Auto 55.7 % (50.0-70.0); Platelet Count Result 268 K/mm3 (150-420); Red Blood Count 4.81 M/mm3 (4.70-6.10); Red Cell Distribution Width 12.2 % (11.6-14.4); White Blood Count 5.7 K/mm3 (4.8-10.8)
[2021-08-05 11:35] LABS: Hemoglobin A1C 6.1 % (<5.7)
[2021-08-05 12:20] LABS: Alanine Aminotransferase 27 U/L (16-63); Albumin Level 4.3 g/dL (3.4-5.0); Alkaline Phosphatase 77 U/L (46-116); Anion Gap 7 mmol/L (8-16); Aspartate Amino Transferase 20 U/L (15-37); Bilirubin,Total 0.5 mg/dL (0.00-1.00); Blood Urea Nitrogen 15 mg/dL (7-18); Calcium 9.4 mg/dL (8.5-10.1); Carbon Dioxide 30 mmol/L (21-32); Chloride 104 mmol/L (98-108); Cholesterol 174 mg/dL (0-200); Estimated Glomerular Filt Rate > 60; Glucose 106 mg/dL (70-99); HDL Direct 41 mg/dL (40-60); LDL Cholesterol Calculated 105 mg/dL (<130); Osmolality Calculated 292 mOsm/kg (285-295); Potassium 4.5 mmol/L (3.5-5.1); Sodium 141 mmol/L (136-145); Total Protein 7.5 g/dL (6.4-8.2); Triglycerides 140 mg/dL (0-150)
== END 2021-08-05 11:06 | disposition home or self-care (01) ==
LOC: CHSLAB 11:07
PROVIDERS: PCP Internal Medicine; Visit Provider Internal Medicine
DX: E11.9 Type 2 diabetes mellitus without complications (principal)
CPT/HCPCS: 36415; 80053; 80061; 83036; 85025

== ENCOUNTER 2021-08-08 19:44 | Emergency (ER) | payer MEDICARE, SELFPAY ==
[2021-08-08 20:00] VITALS: BP 166/88; PULSE 94; RESP 18; TEMP 36.2; O2SAT 96
--- NOTE | 2021-08-08 20:30 | ED.MALEGU ---
HPI - Male Genitourinary General Chief complaint: Urogenital-Male Stated complaint: UTI Source: patient Mode of arrival: ambulatory Limitations: no limitations History of Present Illness HPI Narrative: this is a 81-year-old gentleman presents with history of BPH currently on terazosin and follows with Urology, the patient has been having difficulty passing urine all over the last 12hours, has chronic UTIs and sees Urology and currently on Cipro long-term. Currently no fever chills no abdominal pain no flank pain no dysuria, no hematuria, patient has no urinary retention. Onset (ago): hour(s) Duration: constant Severity: moderate Related Data Home Medications Medication Instructions Recorded Confirmed fluticasone propionate 50 1 spray NASAL DAILY 07/18/19 08/08/21 mcg/actuation nasal spray,suspension losartan 25 mg tablet 25 mg PO DAILY 07/18/19 08/08/21 lovastatin 40 mg tablet 40 mg PO DAILY 07/18/19 08/08/21 terazosin 10 mg capsule 10 mg PO DAILY 07/18/19 08/08/21 aspirin [Aspirin Low Dose] 81 mg PO DAILY 08/21/19 08/08/21 famotidine 40 mg PO DAILY 08/21/19 08/08/21 duloxetine 60 mg capsule,delayed 60 mg PO DAILY 09/05/19 08/08/21 release omega-3 fatty acids 1,000 mg 1,000 mg PO DAILY 11/04/20 08/08/21 capsule ciprofloxacin HCl 500 mg PO BID 08/08/21 08/08/21 Allergies Allergy/AdvReac Type Severity Reaction Status Date / Time No Known Allergies Allergy Verified 05/05/21 14:26 Review of Systems Review of Systems: All systems reviewed & are unremarkable except as noted in HPI and below PMFSH Past Medical History Medical History Adenomatous colon polyp Anxiety Arthritis BPH (benign prostatic hyperplasia) Depression Hyperlipemia Hypertension Type 2 diabetes mellitus Surgical History Surgical History History of cataract removal with insertion of prosthetic lens bilateral History of colonoscopy 2015 History of laparoscopic cholecystectomy 2012 S/P ACL repair Status post meniscectomy BL knee medial Family History Family History Father Diabetes mellitus Coronary artery abnormality Mother Anxiety Sibling Lung cancer Social History Social History Smoking status: Former smoker Tobacco type: cigars Alcohol intake: current Exam Const: General: healthy appearing, no acute distress and alert HENMT: Head: normal to inspection Eyes: Conjunctivae: conjunctivae normal Pupils: Equal, round and reactive pupils present EOM: EOMs intact bilaterally Direct Ophthalmoscopy: no photophobia Neck: Neck: normal visual inspection Chest: Chest palpation & inspection: normal inspection of the chest Resp: Effort & Inspection: normal respiratory effort Cardio: Rate: regular rate GI: GI Palp: Yes Soft to palpation Percussion: Yes normal to percussion : General: Yes Bladder palpation abnormal Other: Urinary retention Back/Spine/Pelvis: Back: no CVA tenderness Skin: General skin exam: normal color Rashes: no rashes Neuro: General: patient oriented x3 Extrem: General: normal to inspection and no pedal edema Psych: Mental Status: mental status grossly normal Affect: normal affect Course Course Emergency Course: patient was straight cath and 1100cc of clear urine was removed, the patient symptom of retention have has improved, UA was not performed since the patient has currently on Cipro, patient is afebrile, will leave a Perdomo catheter and advised follow-up with his urologist on Wednesday. Vital Signs Vital signs: Vital Signs Temperature 36.2 C L 08/08/21 20:00 Pulse Rate 94 08/08/21 20:00 Respiratory Rate 18 08/08/21 20:00 Blood Pressure 166/88 H 08/08/21 20:00 Pulse Oximetry 96 08/08/21 20:00 Temperature 36.2 C L 08/08/21
--- NOTE | 2021-08-08 20:40 | PC.NURSE ---
Straight cath inserted per ERP order, immediate return of 1100 ml urine output noted. ERp ordered catheter to placed so pt can go home c it and see his urologist on Wednesday. 16F coude placed due to noted enlarged prostate. Pt informed on how to care for catheter at home.
[2021-08-08 21:09] VITALS: BP 150/78; PULSE 87; RESP 18; TEMP 36.6; O2SAT 96
== END 2021-08-08 21:05 | disposition home or self-care (01) ==
PROVIDERS: Emergency Provider Emergency Medicine; PCP Internal Medicine
DX: R33.9 Retention of urine, unspecified (principal); E78.5 Hyperlipidemia, unspecified; I10 Essential (primary) hypertension; E11.9 Type 2 diabetes mellitus without complications; Z87.891 Personal history of nicotine dependence
CPT/HCPCS: 51701; 99282; 99283

== ENCOUNTER 2021-09-06 09:02 | Emergency (ER) | payer MEDICARE, SELFPAY ==
[2021-09-06 09:05] VITALS: BP 97/58; PULSE 87; RESP 20; TEMP 36.3; O2SAT 98
[2021-09-06 09:44] LABS: Add Urine Microscopic? NO; Appearance Urine Clear (Clear); Bilirubin Urine Negative (Negative); Blood Urine Negative (Negative); Color Urine Yellow (Yellow); Glucose Urine UA Negative (Negative); Ketones Urine Negative (Negative); Leukocyte Esterase Ur Negative LEU/UL (Negative); Nitrate Urine Negative (Negative); Protein Urine Negative (Negative); Specific Grav Ur 1.025 (1.010-1.020); Urobilinogen Urine 0.2 mg/dL (0.2-1.0); pH Urine 5.5 (5.0-8.0)
--- NOTE | 2021-09-06 10:09 | ED.ABDPAIN ---
HPI - Abdominal Pain General Chief Complaint: Urogenital-Male Stated Complaint: can not urinate Time Seen by Provider: 09/06/21 09:04 Source: patient and RN notes reviewed Mode of arrival: ambulatory Limitations: no limitations History of Present Illness MD elicited complaint: other (unable to pass urine x several hrs.) Pertinent past history: past UTI and other (BPH) Onset (ago): hour(s) (6) Pain Consistency: other (pain-free.) Location: suprapubic Severity: mild Pain scale (0-10): 0 Quality: cramping Radiation: none Migration to: no migration Relieving factors: nothing Associated symptoms: denies other symptoms Related Data Home Medications Medication Instructions Recorded Confirmed fluticasone propionate 50 1 spray NASAL DAILY 07/18/19 09/06/21 mcg/actuation nasal spray,suspension losartan 25 mg tablet 25 mg PO DAILY 07/18/19 09/06/21 lovastatin 40 mg tablet 40 mg PO DAILY 07/18/19 09/06/21 terazosin 10 mg capsule 10 mg PO DAILY 07/18/19 09/06/21 aspirin [Aspirin Low Dose] 81 mg PO DAILY 08/21/19 09/06/21 famotidine 40 mg PO DAILY 08/21/19 09/06/21 duloxetine 60 mg capsule,delayed 60 mg PO DAILY 09/05/19 09/06/21 release omega-3 fatty acids 1,000 mg 1,000 mg PO DAILY 11/04/20 09/06/21 capsule ciprofloxacin HCl 500 mg PO BID 08/08/21 09/06/21 Allergies Allergy/AdvReac Type Severity Reaction Status Date / Time No Known Allergies Allergy Verified 05/05/21 14:26 Review of Systems Review of Systems: All systems reviewed & are unremarkable except as noted in HPI and below Genitourinary: Genitourinary: Reports oliguria PMFSH Past Medical History Medical History Adenomatous colon polyp Anxiety Arthritis BPH (benign prostatic hyperplasia) Depression Hyperlipemia Hypertension Type 2 diabetes mellitus Surgical History Surgical History History of cataract removal with insertion of prosthetic lens bilateral History of colonoscopy 2015 History of laparoscopic cholecystectomy 2013 S/P ACL repair Status post meniscectomy BL knee medial Family History Family History Father Diabetes mellitus Coronary artery abnormality Mother Anxiety Sibling Lung cancer Social History Social History Smoking status: Former smoker Tobacco type: cigars Alcohol intake: current Exam Const: General: no acute distress Orientation/consciousness: patient oriented x3 HENMT: Head: normal to inspection Ears: TM's normal bilaterally General nose exam: Normal external nose present and Normal nares present Face and sinus: normal facial exam Mouth: Yes lip normal and Yes moist mucous membranes Teeth and gingiva: dentition normal Eyes: Conjunctivae: conjunctivae normal Pupils: Equal, round and reactive pupils present EOM: EOMs intact bilaterally Neck: Neck: normal visual inspection and no lymphadenopathy Chest: Chest palpation & inspection: normal inspection of the chest Resp: Effort & Inspection: normal respiratory effort Auscultation: clear to auscultation bilaterally Cardio: Rate: regular rate Rhythm: regular rhythm GI: GI Palp: Yes Soft to palpation and No Tenderness to palpation present (GI) Auscultation: normal bowel sounds : General: Yes bladder normal to palpation and Yes no CVA tenderness Male General Exam: Yes normal external exam Testes: Testes normal Urinary Catheter: Urinary Catheter: patent and draining Back/Spine/Pelvis: Back: no CVA tenderness Skin: General skin exam: normal color Neuro: General: patient oriented x3, moves all extremities, no meningeal signs, no focal motor deficits and CN's II-XI intact bilaterally Extrem: General: normal to inspection and no pedal edema Psych: Appearance: grossly normal and well kempt Mental Status: men
[2021-09-06 10:26] VITALS: BP 98/57; PULSE 87; RESP 20; TEMP 36.1; O2SAT 97
== END 2021-09-06 10:30 | disposition home or self-care (01) ==
PROVIDERS: Emergency Provider Emergency Medicine; PCP Internal Medicine
DX: R33.9 Retention of urine, unspecified (principal); E78.5 Hyperlipidemia, unspecified; I10 Essential (primary) hypertension; E11.9 Type 2 diabetes mellitus without complications
CPT/HCPCS: 51701; 81003; 99282; 99283

== ENCOUNTER 2021-09-08 06:28 | Emergency (ER) | payer MEDICARE, SELFPAY ==
[2021-09-08 06:30] VITALS: BP 143/66; PULSE 68; RESP 16; TEMP 36.6; O2SAT 96
--- NOTE | 2021-09-08 07:35 | ED.MALEGU ---
HPI - Male Genitourinary General Chief complaint: Urogenital-Male Stated complaint: Ambulance Time Seen by Provider: 09/08/21 07:35 Source: patient Mode of arrival: ambulatory History of Present Illness HPI Narrative: this is a 81-year-old gentleman that history of an prostatic hypertrophy and is following with a urologist, the patient presented on Wednesday the 28 of August with difficulty passing urine and indwelling Perdomo catheter was placed and the patient was discharged with some antibiotics. Patient presents again to the emergency department with an episode of constipation that according to the patient has resolved, currently has an indwelling catheter as passing urine with no fever chills no nausea vomiting no abdominal pain no suprapubic tenderness. Patient has a scheduled appointment with his urologist on . Onset (ago): day(s) Related Data Home Medications Medication Instructions Recorded Confirmed fluticasone propionate 50 1 spray NASAL DAILY 07/18/19 09/08/21 mcg/actuation nasal spray,suspension losartan 25 mg tablet 25 mg PO DAILY 07/18/19 09/08/21 lovastatin 40 mg tablet 40 mg PO DAILY 07/18/19 09/08/21 terazosin 10 mg capsule 10 mg PO DAILY 07/18/19 09/08/21 aspirin [Aspirin Low Dose] 81 mg PO DAILY 08/21/19 09/08/21 famotidine 40 mg PO DAILY 08/21/19 09/08/21 duloxetine 60 mg capsule,delayed 60 mg PO DAILY 09/05/19 09/08/21 release omega-3 fatty acids 1,000 mg 1,000 mg PO DAILY 11/04/20 09/08/21 capsule ciprofloxacin HCl 500 mg PO BID 08/08/21 09/08/21 Allergies Allergy/AdvReac Type Severity Reaction Status Date / Time No Known Allergies Allergy Verified 09/08/21 06:50 Review of Systems Review of Systems: All systems reviewed & are unremarkable except as noted in HPI and below PMFSH Past Medical History Medical History Adenomatous colon polyp Anxiety Arthritis BPH (benign prostatic hyperplasia) Depression Hyperlipemia Hypertension Type 2 diabetes mellitus Surgical History Surgical History History of cataract removal with insertion of prosthetic lens bilateral History of colonoscopy 2016 History of laparoscopic cholecystectomy 2013 S/P ACL repair Status post meniscectomy BL knee medial Family History Family History Father Diabetes mellitus Coronary artery abnormality Mother Anxiety Sibling Lung cancer Social History Social History Smoking status: Former smoker Tobacco type: cigars Alcohol intake: current Exam Const: General: healthy appearing, no acute distress and alert HENMT: Head: normal to inspection Eyes: Conjunctivae: conjunctivae normal Pupils: Equal, round and reactive pupils present Neck: Neck: normal visual inspection and no lymphadenopathy Chest: Chest palpation & inspection: normal inspection of the chest Resp: Effort & Inspection: normal respiratory effort Auscultation: clear to auscultation bilaterally Cardio: Rate: regular rate Rhythm: regular rhythm GI: GI Palp: Yes Soft to palpation Percussion: Yes normal to percussion : Testes: Testes normal Other: has an indwelling Perdomo catheter Urinary Catheter: Urinary Catheter: patent and draining and urine clear Back/Spine/Pelvis: Back: no CVA tenderness Skin: General skin exam: normal color Rashes: no rashes Neuro: General: patient oriented x3, moves all extremities, no meningeal signs and no focal motor deficits Extrem: General: normal to inspection and no pedal edema Psych: Mental Status: mental status grossly normal Affect: normal affect Attitude: cooperative Course Course Emergency Course: patient's symptoms have resolved, advised to continue indwelling Perdomo catheter complete course of antibiotics and advised to follow-up s
[2021-09-08 07:46] VITALS: BP 123/64; PULSE 64; RESP 20; O2SAT 96
== END 2021-09-08 08:00 | disposition home or self-care (01) ==
PROVIDERS: Emergency Provider Emergency Medicine; PCP Internal Medicine
DX: N40.1 Benign prostatic hyperplasia with lower urinary tract symptoms (principal); E78.5 Hyperlipidemia, unspecified; I10 Essential (primary) hypertension; E11.9 Type 2 diabetes mellitus without complications; Z87.891 Personal history of nicotine dependence
CPT/HCPCS: 99282

== ENCOUNTER 2021-10-27 15:04 | Outpatient (CLI) | payer MEDICARE, SELFPAY ==
--- NOTE | ~2021-10-27 | XR_ITS ---
EXAMINATION: XR chest 2V EXAM DATE: 10/27/2021 15:34 INDICATION: SOB/elevated BP chest tightness upon exertion. TECHNIQUE: Frontal and lateral projections of the chest obtained and reviewed. Comparison is made to prior examination from 04/18/2021. FINDINGS: Small amount of basilar airspace disease, clinical correlation for atelectasis versus pneum onia. No pneumothorax or pleural effusion. Cardiomediastinal silhouette is normal. There are no osseo us abnormalities identified. IMPRESSION: Small amount of basilar atelectasis or pneumonia. Reviewed, dictated and finalized at location G.
--- NOTE | ~2021-10-27 | CT_ITS ---
EXAMINATION: CTA chest PE protocol DATE: 10/27/2021 16:46 INDICATION: Shortness of breath TECHNIQUE: Computed tomography angiography (CTA) of the chest was performed with 100 mL Omnipaque-350 intravenous contrast timed to evaluate the pulmonary arteries. Coronal maximum intensity projection 3D-reconstructions were created by the technologist. The dose-length product (DLP) was 696.57 mGy-cm. Automated exposure control and iterative reconstruction technique were employed. COMPARISON: None. FINDINGS: The pulmonary arteries are moderately well-opacified. No pulmonary embolism is identified. There is mild dependent atelectasis. The lungs are free of focal airspace opacities. There is no pleu ral effusion or pneumothorax. A small sliding hiatal hernia is noted. No pathologically enlarged thor acic lymph nodes are identified. The heart size is normal. The gallbladder is surgically absent. Ther e is severe thoracic spondylosis. IMPRESSION: 1. No pulmonary embolism or acute cardiopulmonary abnormality. Reviewed, dictated and finalized at location B.
[2021-10-27 15:20] LABS: Basophils Absolute Auto 0.05 K/mm3 (0.00-0.10); Basophils Percent Auto 0.7 % (0.0-1.0); Eosinophils Absolute Auto 0.14 K/mm3 (0.02-0.50); Hematocrit 45.1 % (37.0-46.0); Hemoglobin 15.3 g/dL (12.4-15.3); Immature Granulocyte Absolute 0.03 K/mm3 (0.00-0.00); Immature Granulocyte Percent A 0.4 % (0.0-0.0); Lymphocytes Absolute Auto 1.93 K/mm3 (1.10-4.50); Lymphocytes Percent Auto 27.7 % (18.0-42.0); Mean Corpuscular HGB Conc 33.9 g/dL (32.0-36.0); Mean Corpuscular Hemoglobin 31.8 pg (27.0-31.0); Mean Corpuscular Volume 93.8 fL (78.0-102.0); Mean Platelet Volume 9.3 fl (8.7-11.0); Monocytes Absolute Auto 0.62 K/mm3 (0.10-0.90); Monocytes Percent Auto 8.9 % (2.0-11.0); Neutrophils Absolute Auto 4.2 K/mm3 (1.7-7.2); Neutrophils Percent Auto 60.3 % (50.0-70.0); Platelet Count Result 269 K/mm3 (150-420); Red Blood Count 4.81 M/mm3 (4.70-6.10); Red Cell Distribution Width 12.6 % (11.6-14.4)
[2021-10-27 15:40] LABS: D Dimer 0.88 mg/L (0.19-0.50)
[2021-10-27 15:51] LABS: Alanine Aminotransferase 31 U/L (16-63); Albumin Level 3.9 g/dL (3.4-5.0); Alkaline Phosphatase 68 U/L (46-116); Anion Gap 4 mmol/L (8-16); Aspartate Amino Transferase 18 U/L (15-37); Bilirubin,Total 0.2 mg/dL (0.00-1.00); Blood Urea Nitrogen 19 mg/dL (7-18); Calcium 9.3 mg/dL (8.5-10.1); Carbon Dioxide 32 mmol/L (21-32); Chloride 100 mmol/L (98-108); Creatine Kinase 149 U/L (39-308); Estimated Glomerular Filt Rate > 60; Free T4 Free Thyroxine 0.84 ng/dL (0.76-1.46); Glucose 111 mg/dL (70-99); Osmolality Calculated 285 mOsm/kg (285-295); Potassium 4.2 mmol/L (3.5-5.1); Sodium 136 mmol/L (136-145); Thyroid Stimulating Hormone 2.95 uIU/mL (0.36-3.74); Total Protein 7.7 g/dL (6.4-8.2); Troponin I 5.4 ng/L (0.00-60.4)
[2021-10-28 09:27] LABS: NT Pro B Type Natriuretic Pept 58 pg/mL (0-450)
== END 2021-10-27 15:05 | disposition home or self-care (01) ==
PROVIDERS: PCP Internal Medicine; Visit Provider Nurse Practitioner Family
DX: R79.1 Abnormal coagulation profile (principal); R06.02 Shortness of breath; R06.00 Dyspnea, unspecified
CPT/HCPCS: 36415; 71046; 71275; 80053; 82550; 82553; 83880; 84439; 84443; 84484; 85025; 85380; Q9967

== ENCOUNTER 2021-12-31 11:35 | Outpatient (CLI) | payer MEDICARE, SELFPAY ==
[2021-12-31 12:49] LABS: Alanine Aminotransferase 29 U/L (16-63); Alkaline Phosphatase 86 U/L (46-116); Anion Gap 6 mmol/L (8-16); Aspartate Amino Transferase 21 U/L (15-37); Bilirubin,Total 0.3 mg/dL (0.00-1.00); Blood Urea Nitrogen 17 mg/dL (7-18); Carbon Dioxide 30 mmol/L (21-32); Chloride 101 mmol/L (98-108); Estimated Glomerular Filt Rate > 60; Glucose 101 mg/dL (70-99); Osmolality Calculated 285 mOsm/kg (285-295); Potassium 4.5 mmol/L (3.5-5.1); Prostate Specific Antigen 0.4 ng/mL (< OR = 4.0); Sodium 137 mmol/L (136-145); Total Protein 7.3 g/dL (6.4-8.2)
== END 2021-12-31 11:36 | disposition home or self-care (01) ==
LOC: CHSLAB 11:37
PROVIDERS: PCP Internal Medicine; Visit Provider Urology
DX: R33.9 Retention of urine, unspecified (principal); N42.9 Disorder of prostate, unspecified
CPT/HCPCS: 36415; 80053; 84153

== ENCOUNTER 2022-01-19 12:04 | Outpatient (CLI) | payer MEDICARE, SELFPAY ==
--- NOTE | 2022-01-19 12:13 | EST_ITS ---
Patient Info Name: Kan Lawson Age: 81 years : 1940 Gender: Male Ht: 67 in Wt: 200 lbs BSA: 2.10 m2 Exam Date: 01/19/2022 1:04 PM Exam Location: [facility] Patient Status: Outpatient Admit Date: 01/19/2022 Staff Ordering Physician: Garett Barker DO Attending Provider: Garett Barker DO Exam Type: CA stress tc w NM Summary 1. 1. Negative lexiscan stress test for ischemic ST changes by ECG criteria. 2. 2. Baseline hypertension. 3. 3. Nuclear scan to follow and will be reported separately. Please correlate with it. 4. 4. Patient informed of the above results. Protocol: LEXISCAN Stress ECG Details Stage: REST Duration (min): 0 min : 55 sec HR (bpm): 54 SBP (mmHg): 151 DBP (mmHg): 77 Stage: STAGE 1 Duration (min): 0 min : 11 sec HR (bpm): 55 SBP (mmHg): 151 DBP (mmHg): 77 Stage: RECOVERY Duration (min): 0 min : 48 sec HR (bpm): 55 SBP (mmHg): 151 DBP (mmHg): 77 Stage: RECOVERY Duration (min): 1 min : 48 sec HR (bpm): 66 SBP (mmHg): 151 DBP (mmHg): 77 Stage: RECOVERY Duration (min): 2 min : 48 sec HR (bpm): 66 SBP (mmHg): 128 DBP (mmHg): 60 Stage: RECOVERY Duration (min): 3 min : 48 sec HR (bpm): 65 SBP (mmHg): 128 DBP (mmHg): 60 Stage: RECOVERY Duration (min): 4 min : 48 sec HR (bpm): 65 SBP (mmHg): 128 DBP (mmHg): 55 Stage: RECOVERY Duration (min): 5 min : 48 sec HR (bpm): 62 SBP (mmHg): 127 DBP (mmHg): 66 Stage: RECOVERY Duration (min): 6 min : 12 sec HR (bpm): 63 SBP (mmHg): 127 DBP (mmHg): 66 Peak HR: 67 bpm Rest Sys BP: 151 mmHg Peak Sys BP: 130 mmHg Max Pred HR: 141 bpm % Max Pred HR: 48 % Target HR: 120 bpm Max RPP: 8,710 bpm*mmHg Termination Reason: Completed protocol Cardiac Symptoms: Shortness of breath Total Time: 0 min : 11 sec Rest Dougherty BP: 77 mmHg Peak Dougherty BP: 61 mmHg Total Dose: 0.4 mg Resting ECG Sinus bradycardia, IVCD, delayed precordial R/S transition. Stress ECG No ST changes. Arrhythmias None. Report Signatures
--- NOTE | 2022-01-19 16:35 | WPDCARIOSTRE ---
Nuclear Stress Test INDICATIONS Indications: Chest pain PROCEDURE Procedure Performed: Myocardial Perf Spect-Multi Procedure: Patient underwent a lexiscan stress test and immediately was injected with 31 mCi of cardiolyte. Multiple tomographic images were obtained. These are of good quality. There is evidence of small size, moderate inferior perfusion defect noted during stress imaging. A separate resting imaged were obtained after patient was injected with 9.6 mCi of cardiolyte. Multiple tomographic images were obtained. These are of good quality. There is evidence of small size, moderate inferior perfusion defect noted during rest imaging. CONCLUSION Conclusion: 1. Myocardial perfusion imaging demonstrating a fixed small size inferior perfusion defect suggestive of diaphragmatic attenuation artifact. 2. No evidence of reversible ischemia. 3. Left ventriculogram demonstrates normal measured ejection fraction of 62%. No wall motion abnormalities. 4. TID score is normal at 1.01.
== END 2022-01-19 12:05 | disposition home or self-care (01) ==
LOC: CHSIMG 12:09
PROVIDERS: PCP Internal Medicine; Visit Provider Internal Medicine Cardiovascular Disease
DX: R06.09 Other forms of dyspnea (principal)
CPT/HCPCS: 78452; 93017; A9502; J2785

== ENCOUNTER 2022-03-20 09:15 | Emergency (ER) | payer MEDICARE, SELFPAY ==
--- NOTE | 2022-03-20 09:26 | ED.OVERDOSE ---
HPI - Overdose General Chief Complaint: Overdose Stated Complaint: POSSIBLY TOOK TO MANY PILLS Time Seen by Provider: 03/20/22 09:26 Source: patient and RN notes reviewed Mode of arrival: ambulatory Limitations: no limitations History of Present Illness HPI Narrative: Patient is not sure how it happened he was taking his medication last night and thinks that he accidentally took 8 ciprofloxacin. He was diagnosed with the urinary tract infection and started the medicine yesterday. He denies any symptoms. MD complaint: accidental overdose Onset (ago): hour(s) (13) Treatments Prior to Arrival: none Related Data Home Medications Medication Instructions Recorded Confirmed fluticasone propionate 50 1 spray intranasal DAILY 07/18/19 03/20/22 mcg/actuation nasal spray,suspension (Allergy Relief (fluticasone)) losartan 25 mg tablet 25 mg PO DAILY 07/18/19 03/20/22 lovastatin 40 mg tablet 40 mg PO DAILY 07/18/19 03/20/22 terazosin 10 mg capsule 10 mg PO DAILY 07/18/19 03/20/22 aspirin 81 mg tablet,delayed 81 mg PO DAILY 08/21/19 03/20/22 release (Michele Low Dose Aspirin) famotidine 40 mg tablet 40 mg PO DAILY 08/21/19 03/20/22 duloxetine 60 mg capsule,delayed 60 mg PO DAILY 09/05/19 03/20/22 release omega-3 fatty acids 1,000 mg 1,000 mg PO DAILY 11/04/20 03/20/22 capsule (Fish Oil Concentrate) ciprofloxacin HCl 500 mg tablet 500 mg PO BID 08/08/21 03/20/22 Allergies Allergy/AdvReac Type Severity Reaction Status Date / Time No Known Allergies Allergy Verified 03/20/22 09:36 Review of Systems Review of Systems: All systems reviewed & are unremarkable except as noted in HPI and below PMFSH Past Medical History Medical History Adenomatous colon polyp Anxiety Arthritis BPH (benign prostatic hyperplasia) Depression Hyperlipemia Hypertension Type 2 diabetes mellitus Surgical History Surgical History History of cataract removal with insertion of prosthetic lens bilateral History of colonoscopy 2015 History of laparoscopic cholecystectomy 2012 S/P ACL repair Status post meniscectomy BL knee medial Family History Family History Father Diabetes mellitus Coronary artery abnormality Mother Anxiety Sibling Lung cancer Social History Social History Smoking status: Never smoker Tobacco type: cigars Alcohol intake: current Exam Const: General: healthy appearing, no acute distress and alert Nutritional Appearance: well nourished Orientation/consciousness: patient oriented x3 Limitations: no limitations HENMT: Head: normal to inspection Ears: external ears normal Eyes: Conjunctivae: conjunctivae normal Pupils: Equal, round and reactive pupils present EOM: EOMs intact bilaterally Neck: Neck: normal visual inspection Resp: Effort & Inspection: normal respiratory effort Auscultation: clear to auscultation bilaterally Cardio: Rate: regular rate Rhythm: regular rhythm GI: GI Palp: Yes Soft to palpation and No Tenderness to palpation present (GI) Auscultation: normal bowel sounds Back/Spine/Pelvis: Cervical Spine: cervical ROM normal Thoracic/Lumbar Spine: thoraco-lumbar ROM normal Skin: General skin exam: normal color Rashes: no rashes Wounds: no wounds Neuro: General: patient oriented x3, moves all extremities, no focal motor deficits and CN's II-XI intact bilaterally Speech: normal speech Gait exam (Neuro): Normal gait present Extrem: General: normal to inspection and no clubbing, cyanosis or edema Psych: Mental Status: mental status grossly normal Affect: normal affect Attitude: cooperative Discharge Plan Discharge Clinical Impression: Accidental drug ingestion Qualifiers: Encounter type: initial encounter Qualified Code(s): T50.901A - Poisoning by
[2022-03-20 09:28] VITALS: BP 168/79; PULSE 69; RESP 16; TEMP 36.3; O2SAT 96
[2022-03-20 09:29] VITALS: BP 168/79; PULSE 69; RESP 16; TEMP 36.3; O2SAT 96
--- NOTE | 2022-03-20 09:32 | PC.NURSE ---
rn contacted poison control erp is notified of lab and test recommendations. Kenny from poison control states that if labs and test come back negative patient is cleared since it has been over 6 hours since time of ingestion.
--- NOTE | 2022-03-20 09:40 | ECG_ITS ---
Measurements Intervals [place] Rate: 62 P: 34 DC: 208 QRS: -27 QRSD: 106 T: 17 QT: 409 QTc: 416 Interpretive Statements SINUS RHYTHM BORDERLINE LEFT AXIS DEVIATION [QRS AXIS < -20] LOW QRS VOLTAGE IN PRECORDIAL LEADS [QRS DEFLECTION < 1.0 mV IN CHEST LEADS] COMPARED TO ECG 04/18/2021 20:26:30 NO SIGNIFICANT CHANGES Electronically Signed On 03-20-2022 10:28:47 CDT by Best Nieto M.D.
[2022-03-20 09:41] VITALS: RESP 17
[2022-03-20 10:08] LABS: Basophils Absolute Auto 0.03 K/mm3 (0.00-0.10); Basophils Percent Auto 0.5 % (0.0-1.0); Eosinophils Absolute Auto 0.15 K/mm3 (0.02-0.50); Eosinophils Percent Auto 2.5 % (1.0-6.0); Hemoglobin 13.5 g/dL (12.4-15.3); Immature Granulocyte Absolute 0.02 K/mm3 (0.00-0.00); Immature Granulocyte Percent A 0.3 % (0.0-0.0); Lymphocytes Absolute Auto 1.49 K/mm3 (1.10-4.50); Lymphocytes Percent Auto 24.7 % (18.0-42.0); Mean Corpuscular HGB Conc 34.6 g/dL (32.0-36.0); Mean Corpuscular Hemoglobin 31.5 pg (27.0-31.0); Mean Corpuscular Volume 91.1 fL (78.0-102.0); Mean Platelet Volume 9.5 fl (8.7-11.0); Monocytes Absolute Auto 0.44 K/mm3 (0.10-0.90); Monocytes Percent Auto 7.3 % (2.0-11.0); Neutrophils Absolute Auto 3.9 K/mm3 (1.7-7.2); Neutrophils Percent Auto 64.7 % (50.0-70.0); Platelet Count Result 237 K/mm3 (150-420); Red Blood Count 4.28 M/mm3 (4.70-6.10); Red Cell Distribution Width 12.7 % (11.6-14.4)
[2022-03-20 10:27] LABS: Acetaminophen < 2 ug/mL (10-30); Alanine Aminotransferase 22 U/L (16-63); Albumin Level 3.6 g/dL (3.4-5.0); Alkaline Phosphatase 75 U/L (46-116); Anion Gap 7 mmol/L (8-16); Aspartate Amino Transferase 17 U/L (15-37); Bilirubin,Total 0.4 mg/dL (0.00-1.00); Blood Urea Nitrogen 14 mg/dL (7-18); Calcium 9.1 mg/dL (8.5-10.1); Carbon Dioxide 29 mmol/L (21-32); Chloride 104 mmol/L (98-108); Estimated Glomerular Filt Rate > 60; Glucose 109 mg/dL (70-99); Magnesium 2.1 mg/dL (1.8-2.4); Osmolality Calculated 291 mOsm/kg (285-295); Potassium 4.1 mmol/L (3.5-5.1); Salicylate 1.4 mg/dL (2.8-20.0); Sodium 140 mmol/L (136-145)
[2022-03-20 10:28] LABS: Ethanol < 3 mg/dL (0-6)
[2022-03-20 10:39] LABS: Appearance Urine Clear (Clear); Bilirubin Urine Negative (Negative); Color Urine Light Yellow (Yellow); Glucose Urine UA Negative (Negative); Ketones Urine Negative (Negative); Leukocyte Esterase Ur 2+ LEU/UL (Negative); Nitrate Urine Negative (Negative); Protein Urine Negative (Negative); Specific Grav Ur 1.015 (1.010-1.020); Urobilinogen Urine 0.2 mg/dL (0.2-1.0)
[2022-03-20 10:45] LABS: Add Urine Microscopic? YES; Blood Urine Trace-Intact (Negative); RBC Urine 0-2 /hpf (0-2); Renal Epithelial Cells Urine Few /hpf; Squamous Epithelial Cell Urine Few /hpf (Few); WBC Urine >75 /hpf (0-3)
[2022-03-20 10:46] LABS: Amphetamine Screen Urine Negative (Negative); Bacteria Urine 1+ /hpf; Barbiturate Screen Urine Negative (Negative); Benzodiazepines Screen Urine Negative (Negative); Cannabinoid Screen Urine Negative (Negative); Cocaine Screen Urine Negative (Negative); Methadone Screen Urine Negative (Negative); Opiate Screen Urine Negative (Negative); Phencyclidine Screen Urine Negative (Negative)
[2022-03-20 10:54] VITALS: BP 125/65; PULSE 64; RESP 16; TEMP 36.3; O2SAT 96
== END 2022-03-20 10:58 | disposition home or self-care (01) ==
PROVIDERS: Emergency Provider Emergency Medicine; PCP Internal Medicine
DX: T50.901A Poisoning by unspecified drugs, medicaments and biological substances, accidental (unintentional), initial encounter (principal); E78.5 Hyperlipidemia, unspecified; I10 Essential (primary) hypertension; E11.9 Type 2 diabetes mellitus without complications; Z79.899 Other long term (current) drug therapy
CPT/HCPCS: 36415; 80053; 80307; 81001; 83735; 85025; 87086; 93005; 99283

== ENCOUNTER 2022-06-04 09:48 | Outpatient (CLI) | payer MEDICARE, SELFPAY ==
[2022-06-04 11:27] LABS: Basophils Absolute Auto 0.1 K/mm3 (0.0-0.1); Basophils Percent Auto 0.9 % (0.2-1.2); Eosinophils Absolute Auto 0.2 K/mm3 (0-0.3); Eosinophils Percent Auto 3.1 % (0-4.4); Hematocrit 43.7 % (42.0-52.0); Hemoglobin 14.9 g/dL (14.0-18.0); Immature Granulocyte Absolute 0.03 K/mm3 (0.00-0.031); Immature Granulocyte Percent A 0.5 % (0-0.5); Lymphocytes Absolute Auto 1.87 K/mm3 (0.9-3.2); Lymphocytes Percent Auto 31.9 % (18.3-44.2); Mean Corpuscular HGB Conc 34.1 g/dl (32-36); Mean Corpuscular Hemoglobin 31.3 pg (26-34); Mean Corpuscular Volume 91.8 fl (80-100); Mean Platelet Volume 9.8 fl (7.4-10.4); Monocytes Absolute Auto 0.5 K/mm3 (0.1-0.6); Monocytes Percent Auto 8.7 % (2.6-8.5); Neutrophils Absolute Auto 3.2 K/mm3 (1.3-6.7); Neutrophils Percent Auto 54.9 % (45.5-73.1); Platelet Count Result 237 k/mm3 (150-375); Red Blood Count 4.76 M/mm3 (4.6-6.20); Red Cell Distribution Width 13.6 % (11.5-14.5); White Blood Count 5.9 K/mm3 (4.5-10.0)
[2022-06-04 11:36] LABS: Urine Cotinine NEGATIVE
[2022-06-04 11:39] LABS: Albumin Level 4.5 g/dL (3.5-5.1); Anion Gap 9 mmol/L (8-16); Blood Urea Nitrogen 15 mg/dL (9-20); Carbon Dioxide 28 mmol/L (22-30); Chloride 102 mmol/L (98-107); Estimated Glomerular Filt Rate > 60; Glucose 99 mg/dL (65-110); Potassium 4.8 mmol/L (3.4-5.0); Sodium 139 mmol/L (137-145)
== END 2022-06-04 09:49 | disposition home or self-care (01) ==
LOC: ANHSURGERY 09:54
PROVIDERS: PCP Internal Medicine; Visit Provider Orthopaedic Surgery
DX: M17.11 Unilateral primary osteoarthritis, right knee (principal); Z01.818 Encounter for other preprocedural examination
CPT/HCPCS: 80048; 80307; 82040; 83036; 85025; 87081

== ENCOUNTER 2022-06-22 02:07 | Day surgery (SDC) | payer MEDICARE, SELFPAY ==
--- NOTE | 2022-06-04 09:52 | PC.NURSE ---
PRE-OP INSTRUCTIONS, PLEASE READ CAREFULLY Report to the Outpatient Waiting Room, entrance under the green pavilion located off [facility], at time _0600_ on date _06/22/22_. Planned Procedure Time: _0730_. PACK A SMALL OVERNIGHT BAG AND LEAVE IN THE CAR ALONG WITH YOUR WALKER Time changes happen often and if your time is changed the preop area will call you the afternoon before. - You and your visitor will be asked to self-screen and do not enter if you have any COVID symptoms. - We encourage only one visitor and NO visitors under age 16 are allowed at this time. Your visitor will receive communication by the phone number that is given day of service. - The patient visitor is requested to social distance or may leave the building when not with patient due to restrictions. - A mask is required within the hospital. -VISITING HOURS 8AM-8PM Patients may have clear liquids (water, carbonated beverages, clear teas, apple juice) until 3 hours prior to surgery (0430 AM) with a maximum of 20 ounces. - No food from midnight until time of surgery Take the following medications with a SIP of water the morning of surgery: _DULOXETINE, NASAL SPRAY _ Medications to discontinue - _ASPIRIN INSTRUCTED BY DR. JOHNSTON (PT STATES ALREADY STOPPED FOR SURGERY) __ Medications to discontinue per ANESTHESIA - _MULTIVITAMIN, FISH OIL, EYE HEALTH, 3 DAYS PRIOR TO SURGERY, Date to take last dose 06/18/22_ Please no make-up, nail swiss, hairspray, perfume, deodorant, or body powder the day of surgery. No jewelry (including any body piercings) or valuables the day of surgery, leave them at home. Please take a shower or bath the night before, or the morning of, surgery with an antibacterial soap. Wear comfortable, loose fitting clothing. - Jewelry must be removed prior to entering the operating room. Rings and piercings that are not removed may be cut off. - The hospital will not accept responsibility for valuables. - Please leave all valuables, including medications, at home the day of surgery. If you are going home after surgery, a licensed charter bus driver must drive you home. - NO public transportation without another adult. - We recommend that an adult stay with you for 24 hours following discharge. - We also recommend that you do not drive, make important decision, drink alcoholic beverages, or take any drugs that were not prescribed by your health care provider for at least 24 hours after your discharge time. Follow any additional instructions given to you from your surgeon. If you or anyone in your household have experienced Covid symptoms in the past week, please notify your surgeon or the nurse liaison at the phone number below for possible testing. Instructions given to _PT _and asked if any additional questions and then verbalized understanding. Patient advised to call surgeon office or pre surgery nurse liaison [phone] if any additional questions.
[2022-06-04 10:17] VITALS: BP 140/62; PULSE 66; RESP 20; TEMP 36.8; O2SAT 97; BMI 31.3
--- NOTE | 2022-06-17 12:19 | PM.IMHP ---
H&P: HPI History of Present Illness Date/Time: 06/17/22 12:19 Chief Complaint: Right knee DJD Narrative: 81-year-old male patient of Dr. Avendaño who presents today for a right total knee arthroplasty. Patient has been having pain in both of his knees right greater than left for several years. He has been trying to live with it as long as possible. Patient does live on his own at this point, he is a were. He feels that he has significant difficulties on a daily basis in his knees. He has had open meniscectomies done in both of his knees very long time ago. He has had cortisone injections in the distant past none recently. He has advanced medial compartment osteoarthritis and feels at this point he is ready to proceed with total knee arthroplasty rather continue nonsurgical treatment. Review of Systems Review of Systems: All systems reviewed & are unremarkable except as noted in HPI and below PMFSH Past Medical History Medical History Adenomatous colon polyp Anxiety Arthritis BPH (benign prostatic hyperplasia) Depression Hyperlipemia Hypertension Type 2 diabetes mellitus Surgical History Surgical History History of cataract removal with insertion of prosthetic lens bilateral History of colonoscopy 2016 History of laparoscopic cholecystectomy 2012 S/P ACL repair Status post meniscectomy BL knee medial Family History Family History Father Diabetes mellitus Coronary artery abnormality Mother Anxiety Sibling Lung cancer Social History Social History Smoking status: Never smoker Tobacco type: cigarettes Second hand tobacco smoke exposure: No Additional smoking assessment comments: STATES SMOKED SOCIALLY IN COLLEGE, DENIES ALL FORMS OF TOBACCO USE Alcohol intake: current Drinks per week: 3 Substance use: never Substance use type: does not use Living arrangements: alone Spiritual care concerns: No Meds Home Medications and Allergies Home Medications Medication Instructions Recorded Confirmed Type fluticasone propionate 50 1 spray intranasal DAILY 07/18/19 06/22/22 History mcg/actuation nasal spray,suspension (Allergy Relief (fluticasone)) lovastatin 40 mg tablet 40 mg PO DAILY 07/18/19 06/22/22 History aspirin 81 mg tablet,delayed 81 mg PO DAILY 08/21/19 06/22/22 History release (Michele Low Dose Aspirin) famotidine 40 mg tablet 40 mg PO DAILY 08/21/19 06/22/22 History duloxetine 60 mg capsule,delayed 60 mg PO DAILY 09/05/19 06/22/22 History release omega-3 fatty acids 1,000 mg 1,000 mg PO DAILY 11/04/20 06/22/22 History capsule (Fish Oil Concentrate) loratadine 10 mg capsule 10 mg PO DAILY 06/04/22 06/22/22 History multivitamin 1 tablet PO DAILY 06/04/22 06/22/22 History semaglutide 7 mg tablet (Rybelsus) 7 mg QAM 06/04/22 06/22/22 History sulfamethoxazole 500 mg tablet 250 mg PO HS 06/04/22 06/22/22 History tamsulosin 0.4 mg capsule 0.4 mg PO HS 06/04/22 06/22/22 History vit A 300 mcg-C 200 mg-E 27 1 tablet PO BID 06/04/22 06/22/22 History mg-lutein 2 mg and minerals tablet (Eye Health Plus Lutein) Allergies Allergy/AdvReac Type Severity Reaction Status Date / Time No Known Allergies Allergy Verified 06/22/22 06:18 Exam Narrative: 81-year-old male alert pleasant. He is 5 ft 5 and 200 lb. His right knee range of motion is from 18-120 degrees. There is an obvious varus alignment. He has an anterior medial scar from previous surgery. He has no edema in lower extremities. Does report some tingling at the top of both feet to light touch. He has had this for a long time. 2+ dorsalis pedis and posterior artery pulse. Hip range of motion is full without discomfort, negative Stinchfield maneuver. Normal quad strength.
[2022-06-22 06:05] VITALS: BP 189/85; PULSE 65; RESP 16; TEMP 36.6; O2SAT 96
[2022-06-22] MEDS: ACETAMINOPHEN 500 MG TABLET 1000 MG PO (06:27)
--- NOTE | 2022-06-22 06:40 | WPDANESEPPF ---
Anes - Initial Pre Proc Eval Procedure: Operation Date: 06/22/22 07:30 Proposed Procedures p Right Total Knee Arthroplasty - Chet Chowdhury MD Date/Time: 06/22/22 06:40 Surgeon: Chet Chowdhury MD Pre Op Diagnosis: severe oa right knee Patient Data Age: 81 Gender: M Height: 1.73 m Weight: 94.65 kg Last Vital Signs Temp 36.8 C 06/04/22 10:17 Pulse 66 06/04/22 10:17 Resp 20 06/04/22 10:17 BP 140/62 06/04/22 10:17 Pulse Ox 97 06/04/22 10:17 O2 Del Method Room Air 06/04/22 10:17 Allergies Allergy/AdvReac Type Severity Reaction Status Date / Time No Known Allergies Allergy Verified 06/22/22 06:18 Home Medications Medication Instructions Recorded Confirmed Type fluticasone propionate 50 1 spray intranasal DAILY 07/18/19 06/22/22 History mcg/actuation nasal spray,suspension (Allergy Relief (fluticasone)) lovastatin 40 mg tablet 40 mg PO DAILY 07/18/19 06/22/22 History aspirin 81 mg tablet,delayed 81 mg PO DAILY 08/21/19 06/22/22 History release (Michele Low Dose Aspirin) famotidine 40 mg tablet 40 mg PO DAILY 08/21/19 06/22/22 History duloxetine 60 mg capsule,delayed 60 mg PO DAILY 09/05/19 06/22/22 History release omega-3 fatty acids 1,000 mg 1,000 mg PO DAILY 11/04/20 06/22/22 History capsule (Fish Oil Concentrate) loratadine 10 mg capsule 10 mg PO DAILY 06/04/22 06/22/22 History multivitamin 1 tablet PO DAILY 06/04/22 06/22/22 History semaglutide 7 mg tablet (Rybelsus) 7 mg QAM 06/04/22 06/22/22 History sulfamethoxazole 500 mg tablet 250 mg PO HS 06/04/22 06/22/22 History tamsulosin 0.4 mg capsule 0.4 mg PO HS 06/04/22 06/22/22 History vit A 300 mcg-C 200 mg-E 27 1 tablet PO BID 06/04/22 06/22/22 History mg-lutein 2 mg and minerals tablet (Eye Health Plus Lutein) Patient hx anesthesia problems: none Family hx anesthesia problems: none Results Review: All pre-operative results and documents have been reviewed as part of the pre-operative evaluation. [facility] Past Medical History Medical History Adenomatous colon polyp Anxiety Arthritis BPH (benign prostatic hyperplasia) Depression Hyperlipemia Hypertension Type 2 diabetes mellitus Surgical History Surgical History History of cataract removal with insertion of prosthetic lens bilateral History of colonoscopy 2016 History of laparoscopic cholecystectomy 2013 S/P ACL repair Status post meniscectomy BL knee medial Family History Family History Father Diabetes mellitus Coronary artery abnormality Mother Anxiety Sibling Lung cancer Social History Social History Smoking status: Never smoker Tobacco type: cigarettes Second hand tobacco smoke exposure: No Additional smoking assessment comments: STATES SMOKED SOCIALLY IN COLLEGE, DENIES ALL FORMS OF TOBACCO USE Alcohol intake: current Drinks per week: 3 Substance use: never Substance use type: does not use Living arrangements: alone Spiritual care concerns: No Anes - Eval Final PreProcedure Day of Procedure 06/22/22 06:40 Patient weight: obese Heart: regular rate and rhythm Lungs: clear to auscultation Airway: Mallampati scale class II Neurological: alert and oriented Last oral intake: >/= 8 hours ASA classification: III Emergent: no Anesthetic plan: proceed Anesthesia type and monitoring: general ETT and standard monitoring Results Review: All pre-operative results and documents have been reviewed as part of the pre-operative evaluation. Informed Consent: The patient's anesthetic plan and its attendant risks and benefits were discussed with the patient/family/POA. Questions were solicited and answers provided to the satisfaction of the patient/family/POA.
[2022-06-22 06:45] LABS: Glucose Point of Care 107 mg/dl (65-105)
[2022-06-22] MEDS: LACTATED RINGERS 1,000 ML 30 ML IV CONT (06:47)
[2022-06-22] MEDS: TRANEXAMIC ACID 1,000MG/ISO100 1,000 MG/100 ML BAG 200 MG IVPB (07:11)
--- NOTE | 2022-06-22 07:19 | WPDHPUPDATE1 ---
History and Physical Update Update Date/Time: 06/22/22 07:19 History and Physical has been reviewed, including an updated exam of the patient. There are NO changes in the patient's condition. Risks, benefits, and alternatives have been discussed and questions answered. Patient agrees to proceed with procedure.
[2022-06-22 08:58] VITALS: BP 139/71; PULSE 63; RESP 16; O2SAT 97
--- NOTE | 2022-06-22 09:45 | SUR.PREOP ---
0805 pt ready for surgery,shaved,given medications,tylenol ,vancomycin and tranexamic acid. anesthesia here and gave versed in preparation to go to or. pt friend received call from pt ostomy care nurse past surgery,this person ill possible covid postive. no one to help pt at home after surgery. talked with friend and pt and dr gupta aware, decided in best interest of pt to cancel procedure today and reschedule once pt has ostomy care nurse at home, pt received versed and will remain until more awake. 0900 friend at side and pt more awake and drinking water ,discharge instructions given ,pt dressed and discharged per wheelchair [id number].
== END 2022-06-22 09:38 | disposition home or self-care (01) ==
PROVIDERS: PCP Internal Medicine; Visit Provider Orthopaedic Surgery
PROC: (CPT 27447; principal; 2022-06-22 07:30)
DX: M17.11 Unilateral primary osteoarthritis, right knee (principal); I10 Essential (primary) hypertension; E78.5 Hyperlipidemia, unspecified; E11.9 Type 2 diabetes mellitus without complications; N40.0 Benign prostatic hyperplasia without lower urinary tract symptoms; F41.9 Anxiety disorder, unspecified; F32.A Depression, unspecified; Z79.82 Long term (current) use of aspirin; Z79.84 Long term (current) use of oral hypoglycemic drugs; Z53.8 Procedure and treatment not carried out for other reasons
CPT/HCPCS: 36415; 82948; 86850; 86900; 86901; 99214; A9270; G0463; J0171; J1170; J2250; J2270; J2795; J3010; J3370; J7120

== ENCOUNTER 2022-07-12 18:23 | Emergency (ER) | payer MEDICARE, SELFPAY ==
[2022-07-12] VITALS (7 sets, daily range): BP systolic 133–190; BP diastolic 69–81; PULSE 61–82; RESP 18–20; TEMP 36.5–36.8; O2SAT 94–97
--- NOTE | ~2022-07-12 | CT_ITS ---
EXAMINATION: CT brain wo con DATE: 07/12/2022 19:44 INDICATION: dizziness . TECHNIQUE: Computed tomography (CT) of the head was performed without intravenous contrast. The mA wa s adjusted according to patient size. Iterative reconstruction technique was employed. The dose-lengt h product was 605.33 mGy-cm. COMPARISON: 04/18/2021 FINDINGS: No acute intracranial hemorrhage or extra-axial fluid collection. No hydrocephalus, mass, or herniation. No acute ischemic infarct. Unremarkable dural venous sinus attenuation. No acute osseous abnormality. The aerated spaces are clear. Mild atrophy and chronic white matter change. Atherosclerotic intracranial calcification. Bilateral l ens replacements. IMPRESSION: No acute intracranial process. Reviewed, dictated and finalized at location K. ERS' COMPENSATION CLAIMS EXAMINER
--- NOTE | ~2022-07-12 | CT_ITS ---
EXAMINATION: CT diagnostic chest wo con DATE: 07/12/2022 19:45 INDICATION: left lateral chest pain. mild SOB. TECHNIQUE: Computed tomography (CT) of the chest was performed with 100 mL Omnipaque-350 intravenous contrast. Automated exposure control and iterative reconstruction technique were employed. The dose-l ength product was 414.41 mGy-cm. COMPARISON: None. FINDINGS: CHEST: Thoracic aorta: No significant dilation. Mild arch calcification. Lung parenchyma and airways: Bilateral sub-6 mm pulmonary nodules. Otherwise the lungs and airways ar e clear. Thoracic inlet, axillae and chest wall: No thyroid or soft tissue mass. No axillary lymphadenopathy. Mediastinum: No mass or lymphadenopathy. Heart and pericardium: Normal heart size. No pericardial effusion. Coronary artery calcifications: Moderate. Pleura: No effusion or mass. Upper abdomen: Left adrenal myolipoma. Cholecystectomy. Thoracic bones: No acute osseous finding in the chest. IMPRESSION: No acute thoracic process detected. Multiple sub-6 mm pulmonary nodules, no routine follow-up recomme nded unless the patient is at high risk, in which case consider optional CT in 12 months. Reviewed, dictated and finalized at location K. ITAL SALES REPRESENTATIVE IMPRESSION: No acute thoracic process detected. Multiple sub-6 mm pulmonary nodules, no rou ricardo follow-up recommended unless the patient is at high risk, in which case co nsider optional CT in 12 months.
--- NOTE | 2022-07-12 18:52 | ECG_ITS ---
Measurements Intervals [place] Rate: 72 P: 40 IA: 196 QRS: -26 QRSD: 92 T: 24 QT: 363 QTc: 399 Interpretive Statements SINUS RHYTHM BASELINE ARTIFACT LOW QRS VOLTAGE IN PRECORDIAL LEADS [QRS DEFLECTION < 1.0 mV IN CHEST LEADS] BORDERLINE ECG COMPARED TO ECG 03/20/2022 09:57:13 NO SIGNIFICANT CHANGES Electronically Signed On 07-13-2022 14:46:04 [employer] DEAN by Truman Hung M.D.
[2022-07-12] MEDS: ASPIRIN 325 MG ENTERIC TABLET PO (19:49)
[2022-07-12] MEDS: SODIUM CHLORIDE 0.9% IV 500 ML 999 ML IV CONT (20:00)
[2022-07-12 20:05] LABS: Basophils Absolute Auto 0.04 K/mm3 (0.00-0.10); Basophils Percent Auto 0.5 % (0.0-1.0); Eosinophils Absolute Auto 0.14 K/mm3 (0.02-0.50); Eosinophils Percent Auto 1.9 % (1.0-6.0); Hematocrit 42.2 % (37.0-46.0); Hemoglobin 14.5 g/dL (12.4-15.3); Immature Granulocyte Absolute 0.03 K/mm3 (0.00-0.00); Immature Granulocyte Percent A 0.4 % (0.0-0.0); Mean Corpuscular HGB Conc 34.4 g/dL (32.0-36.0); Mean Corpuscular Volume 93.2 fL (78.0-102.0); Mean Platelet Volume 9.5 fl (8.7-11.0); Monocytes Absolute Auto 0.55 K/mm3 (0.10-0.90); Monocytes Percent Auto 7.5 % (2.0-11.0); Neutrophils Absolute Auto 4.1 K/mm3 (1.7-7.2); Neutrophils Percent Auto 55.7 % (50.0-70.0); Platelet Count Result 218 K/mm3 (150-420); Red Blood Count 4.53 M/mm3 (4.70-6.10); Red Cell Distribution Width 13.1 % (11.6-14.4); White Blood Count 7.4 K/mm3 (4.8-10.8)
[2022-07-12 20:09] LABS: Appearance Urine Clear (Clear); Bilirubin Urine Negative (Negative); Blood Urine Negative (Negative); Glucose Urine UA Negative (Negative); Ketones Urine Negative (Negative); Leukocyte Esterase Ur Negative (Negative); Nitrate Urine Negative (Negative); Protein Urine Negative (Negative); Urobilinogen Urine 0.2 mg/dL (0.2-1.0)
[2022-07-12 20:11] LABS: Add Urine Microscopic? NO; Color Urine Light Yellow (Yellow)
[2022-07-12 20:27] LABS: Alanine Aminotransferase 32 U/L (16-63); Albumin Level 3.9 g/dL (3.4-5.0); Alkaline Phosphatase 62 U/L (46-116); Anion Gap 7 mmol/L (8-16); Aspartate Amino Transferase 23 U/L (15-37); Bilirubin,Total 0.2 mg/dL (0.00-1.00); Blood Urea Nitrogen 18 mg/dL (7-18); Calcium 8.9 mg/dL (8.5-10.1); Carbon Dioxide 29 mmol/L (21-32); Chloride 104 mmol/L (98-108); Estimated CRCL calculation 63 ml/min; Estimated Glomerular Filt Rate > 60; Glucose 106 mg/dL (70-99); Osmolality Calculated 291 mOsm/kg (285-295); Potassium 3.9 mmol/L (3.5-5.1); Sodium 140 mmol/L (136-145); Total Protein 7.4 g/dL (6.4-8.2); Troponin I 8.9 ng/L (0.00-60.4)
[2022-07-12 21:37] LABS: Influenza A QL RT-PCR Negative (Negative); Influenza B QL RT-PCR Negative (Negative); SARS-CoV-2 RNA PCR Negative (Negative)
--- NOTE | 2022-07-12 21:40 | ED.GENADULT ---
HPI - General Adult General Chief complaint: Unspecified Stated complaint: rib/abdominal pain Time Seen by Provider: 07/12/22 18:25 Source: patient and RN notes reviewed Mode of arrival: ambulatory Limitations: no limitations History of Present Illness MD complaint: dizziness and bilat chest wall pain Onset (ago): day(s) (2) Location: chest Severity: mild Severity scale (1-10): 2 Pain Consistency: other (minimal, no acute sxs.) Relieving factors: none Exacerbating factors: none Associated symptoms: shortness of breath Treatments prior to arrival: none Related Data Home Medications Medication Instructions Recorded Confirmed fluticasone propionate 50 1 spray intranasal DAILY 07/18/19 07/12/22 mcg/actuation nasal spray,suspension (Allergy Relief (fluticasone)) lovastatin 40 mg tablet 40 mg PO DAILY 07/18/19 07/12/22 aspirin 81 mg tablet,delayed 81 mg PO DAILY 08/21/19 07/12/22 release (Michele Low Dose Aspirin) famotidine 40 mg tablet 40 mg PO DAILY 08/21/19 07/12/22 duloxetine 60 mg capsule,delayed 60 mg PO DAILY 09/05/19 07/12/22 release omega-3 fatty acids 1,000 mg 1,000 mg PO DAILY 11/04/20 07/12/22 capsule (Fish Oil Concentrate) loratadine 10 mg capsule 10 mg PO DAILY 06/04/22 07/12/22 multivitamin 1 tablet PO DAILY 06/04/22 07/12/22 semaglutide 7 mg tablet (Rybelsus) 7 mg QAM 06/04/22 07/12/22 sulfamethoxazole 500 mg tablet 250 mg PO HS 06/04/22 07/12/22 tamsulosin 0.4 mg capsule 0.4 mg PO HS 06/04/22 07/12/22 vit A 300 mcg-C 200 mg-E 27 1 tablet PO BID 06/04/22 07/12/22 mg-lutein 2 mg and minerals tablet (Eye Health Plus Lutein) Allergies Allergy/AdvReac Type Severity Reaction Status Date / Time No Known Allergies Allergy Verified 06/22/22 06:18 Review of Systems Review of Systems: All systems reviewed & are unremarkable except as noted in HPI and below Constitutional: Constitutional: Reports no additional constitutional complaints Eyes: Eyes: Reports no additional eye complaints and Denies blurry vision ENT: Reports system reviewed and no additional complaints, except as documented Cardiovascular: Cardiovascular: Reports no additional cardiovascular complaints Respiratory: Respiratory: Reports no additional respiratory complaints Gastrointestinal: Gastrointestinal: Reports no additional gastrointestinal complaints Musculoskeletal: Musculoskeletal: Reports no additional musculoskeletal complaints Integumentary/Breasts: Skin/Breast: Reports system reviewed and no additional complaints, except as docu Neurologic: Reports system reviewed and no additional complaints, except as documented Psychiatric: Psychiatric: Reports no additional psychiatric complaints Endocrine: Endocrine: Reports no additional endocrine complaints Hematologic/Lymphatic: Hematologic/Lymphatic: Reports no additional hematologic/lymphatic complaints Allergic/Immunologic: Allergic/Immunologic: Reports no additional allergic/immunologic complaints PMFSH Past Medical History Medical History Adenomatous colon polyp Anxiety Arthritis BPH (benign prostatic hyperplasia) Depression Hyperlipemia Hypertension Type 2 diabetes mellitus Viral syndrome Surgical History Surgical History History of cataract removal with insertion of prosthetic lens bilateral History of colonoscopy 2015 History of laparoscopic cholecystectomy 2012 S/P ACL repair Status post meniscectomy BL knee medial Family History Family History Father Diabetes mellitus Coronary artery abnormality Mother Anxiety Sibling Lung cancer Social History Social History Smoking status: Never smoker Tobacco type: cigarettes Second hand tobacco smoke exposure: No Additional smoking assessment comments: STATE
== END 2022-07-12 22:01 | disposition home or self-care (01) ==
PROVIDERS: Emergency Provider Emergency Medicine; PCP Internal Medicine
DX: B34.9 Viral infection, unspecified (principal); Z20.822 Contact with and (suspected) exposure to COVID-19; E78.5 Hyperlipidemia, unspecified; I10 Essential (primary) hypertension; E11.9 Type 2 diabetes mellitus without complications
CPT/HCPCS: 36415; 70450; 71250; 80053; 81003; 83605; 84484; 85025; 87636; 93005; 96360; 99284; A9270; J7040

== ENCOUNTER 2022-08-29 10:17 | Emergency (ER) | payer MEDICARE, SELFPAY ==
--- NOTE | ~2022-08-29 | CT_ITS ---
EXAMINATION: CT abdomen pelvis wo con DATE: 08/29/2022 11:02 INDICATION: Abdominal pain. TECHNIQUE: Computed tomography (CT) of the abdomen and pelvis was performed without intravenous contr ast. Automated exposure control and iterative reconstruction technique were employed. The dose-length product was 1114.78 mGy-cm. COMPARISON: CT abdomen and pelvis 06/28/2019 FINDINGS: The visualized portions of the lung bases demonstrate mild atelectasis. No pleural effusion . The heart size is normal. No pericardial effusion. The liver and spleen are normal. There are johnson es of cholecystectomy. A calcification the pancreas is consistent with chronic pancreatitis. Right ad renal gland is normal. There is a 15 mm mass in left adrenal gland containing fat, consistent with a myelolipoma. There is a 2.1 cm cyst in right kidney. There is focal volume loss of left kidney with p arenchymal calcifications. There is a 5 mm cyst in left kidney. There is diverticulosis of the colon without evidence of diverticulitis. There are no dilated loops of bowel. The appendix is normal. Ther e are no pathologically enlarged lymph nodes. There is no free intraperitoneal fluid. There is severe thoracic and lumbar spondylosis. IMPRESSION: 1. No etiology for the patient's symptoms. Reviewed, dictated and finalized at location A. IZATION REVIEW COORDINATOR
[2022-08-29 10:18] VITALS: BP 167/77; PULSE 73; RESP 18; TEMP 36.3; O2SAT 98
[2022-08-29 10:20] VITALS: BP 167/77; PULSE 73; RESP 18; TEMP 36.3; O2SAT 98
--- NOTE | 2022-08-29 10:39 | ECG_ITS ---
Measurements Intervals [place] Rate: 67 P: -19 TN: 194 QRS: -4 QRSD: 114 T: 30 QT: 395 QTc: 420 Interpretive Statements SINUS RHYTHM NORMAL ECG COMPARED TO ECG 07/12/2022 19:00:38 NO SIGNIFICANT CHANGES Electronically Signed On 08-29-2022 17:33:27 CASH PROCESSING SPECIALIST by Garett Barker D.O.
[2022-08-29 10:48] LABS: Basophils Absolute Auto 0.03 K/mm3 (0.00-0.10); Basophils Percent Auto 0.6 % (0.0-1.0); Eosinophils Absolute Auto 0.14 K/mm3 (0.02-0.50); Eosinophils Percent Auto 2.7 % (1.0-6.0); Hematocrit 42.6 % (37.0-46.0); Hemoglobin 14.7 g/dL (12.4-15.3); Immature Granulocyte Absolute 0.02 K/mm3 (0.00-0.00); Immature Granulocyte Percent A 0.4 % (0.0-0.0); Lymphocytes Absolute Auto 1.75 K/mm3 (1.10-4.50); Lymphocytes Percent Auto 33.8 % (18.0-42.0); Mean Corpuscular HGB Conc 34.5 g/dL (32.0-36.0); Mean Corpuscular Volume 92.8 fL (78.0-102.0); Mean Platelet Volume 9.4 fl (8.7-11.0); Monocytes Absolute Auto 0.43 K/mm3 (0.10-0.90); Monocytes Percent Auto 8.3 % (2.0-11.0); Neutrophils Absolute Auto 2.8 K/mm3 (1.7-7.2); Neutrophils Percent Auto 54.2 % (50.0-70.0); Platelet Count Result 221 K/mm3 (150-420); Red Blood Count 4.59 M/mm3 (4.70-6.10); Red Cell Distribution Width 12.7 % (11.6-14.4); White Blood Count 5.2 K/mm3 (4.8-10.8)
[2022-08-29 10:50] VITALS: BP 138/71; PULSE 69; RESP 18; O2SAT 94
[2022-08-29 11:03] LABS: INR 1.1; Partial Thromboplastin Time 25.4 SEC (23.90-30.70); Prothrombin Time 11.5 Seconds (9.50-12.10)
[2022-08-29 11:07] LABS: Alanine Aminotransferase 27 U/L (16-63); Albumin Level 3.9 g/dL (3.4-5.0); Alkaline Phosphatase 64 U/L (46-116); Anion Gap 6 mmol/L (8-16); Aspartate Amino Transferase 19 U/L (15-37); Bilirubin,Total 0.5 mg/dL (0.00-1.00); Blood Urea Nitrogen 13 mg/dL (7-18); Calcium 9.1 mg/dL (8.5-10.1); Carbon Dioxide 32 mmol/L (21-32); Chloride 104 mmol/L (98-108); Estimated CRCL calculation 50 ml/min; Estimated Glomerular Filt Rate > 60; Glucose 100 mg/dL (70-99); Lipase 36 U/L (16-77); Osmolality Calculated 294 mOsm/kg (285-295); Potassium 4.6 mmol/L (3.5-5.1); Sodium 142 mmol/L (136-145); Total Protein 7.4 g/dL (6.4-8.2); Troponin I 7.7 ng/L (0.00-60.4)
[2022-08-29 11:12] LABS: Lactic Acid Reflex 1.6 mmol/L (0.4-2.0)
[2022-08-29 11:20] LABS: Add Urine Microscopic? YES; Appearance Urine Clear (Clear); Bilirubin Urine Negative (Negative); Blood Urine Negative (Negative); Color Urine Light Yellow (Yellow); Glucose Urine UA Negative (Negative); Ketones Urine Negative (Negative); Leukocyte Esterase Ur Trace LEU/UL (Negative); Nitrate Urine Negative (Negative); Protein Urine Negative (Negative); Urobilinogen Urine 0.2 mg/dL (0.2-1.0)
[2022-08-29 11:24] LABS: Bacteria Urine 1+ /hpf; RBC Urine None seen /hpf (0-2); Squamous Epithelial Cell Urine Occasional /hpf (Few); WBC Urine 0-3 /hpf (0-3)
--- NOTE | 2022-08-29 11:42 | ED.ABDPAIN ---
HPI - Abdominal Pain General Chief Complaint: Abdominal Pain Stated Complaint: stomach pain Source: patient Mode of arrival: ambulatory Limitations: no limitations History of Present Illness HPI narrative: this is an 82-year-old gentleman with no significant past medical history does have history of prediabetes hypertension presents with some abdominal discomfort localized to the epigastric area with currently no nausea vomiting no fever chills no diarrhea or constipation no dysuria no flank pain no hematuria. Pain started about 3 days ago and has been off and on with some currently no nausea or vomiting. MD elicited complaint: abdominal pain Onset (ago): day(s) Pain Consistency: intermittent Location: epigastric Severity: mild Pain scale (0-10): 1 Quality: aching Radiation: none Migration to: no migration Exacerbating factors: nothing Relieving factors: nothing Related Data Home Medications Medication Instructions Recorded Confirmed fluticasone propionate 50 1 spray intranasal DAILY 07/18/19 08/29/22 mcg/actuation nasal spray,suspension (Allergy Relief (fluticasone)) lovastatin 40 mg tablet 40 mg PO DAILY 07/18/19 08/29/22 aspirin 81 mg tablet,delayed 81 mg PO DAILY 08/21/19 08/29/22 release (Michele Low Dose Aspirin) famotidine 40 mg tablet 40 mg PO DAILY 08/21/19 08/29/22 duloxetine 60 mg capsule,delayed 60 mg PO DAILY 09/05/19 08/29/22 release omega-3 fatty acids 1,000 mg 1,000 mg PO DAILY 11/04/20 08/29/22 capsule (Fish Oil Concentrate) loratadine 10 mg capsule 10 mg PO DAILY 06/04/22 08/29/22 multivitamin 1 tablet PO DAILY 06/04/22 08/29/22 semaglutide 7 mg tablet (Rybelsus) 7 mg QAM 06/04/22 08/29/22 sulfamethoxazole 500 mg tablet 250 mg PO HS 06/04/22 08/29/22 tamsulosin 0.4 mg capsule 0.4 mg PO HS 06/04/22 08/29/22 vit A 300 mcg-C 200 mg-E 27 1 tablet PO BID 06/04/22 08/29/22 mg-lutein 2 mg and minerals tablet (Eye Health Plus Lutein) Allergies Allergy/AdvReac Type Severity Reaction Status Date / Time No Known Allergies Allergy Verified 08/29/22 10:29 Review of Systems Review of Systems: All systems reviewed & are unremarkable except as noted in HPI and below PMFSH Past Medical History Medical History Adenomatous colon polyp Anxiety Arthritis BPH (benign prostatic hyperplasia) Depression Hyperlipemia Hypertension Type 2 diabetes mellitus Viral syndrome Surgical History Surgical History History of cataract removal with insertion of prosthetic lens bilateral History of colonoscopy 2016 History of laparoscopic cholecystectomy 2012 S/P ACL repair Status post meniscectomy BL knee medial Family History Family History Father Diabetes mellitus Coronary artery abnormality Mother Anxiety Sibling Lung cancer Social History Social History Smoking status: Never smoker Tobacco type: cigarettes Second hand tobacco smoke exposure: No Additional smoking assessment comments: STATES SMOKED SOCIALLY IN COLLEGE, DENIES ALL FORMS OF TOBACCO USE Alcohol intake: current Drinks per week: 3 Substance use: never Substance use type: does not use Living arrangements: alone Occupation/Education: retired Spiritual care concerns: No Exam Const: General: healthy appearing Nutritional Appearance: well nourished Limitations: no limitations HENMT: Head: normal to inspection Face/Nose/Sinus: Normal external nose present Face and sinus: normal facial exam Eyes: Conjunctivae: conjunctivae normal Pupils: Equal, round and reactive pupils present EOM: EOMs intact bilaterally Direct Ophthalmoscopy: no photophobia Neck: Neck: normal visual inspection Chest: Chest palpation & inspection: normal inspection of the chest Resp: Effort & In
[2022-08-29 11:50] VITALS: BP 127/71; PULSE 65; RESP 17; TEMP 36.8; O2SAT 98
== END 2022-08-29 11:56 | disposition home or self-care (01) ==
PROVIDERS: Emergency Provider Emergency Medicine; PCP Internal Medicine
DX: K21.9 Gastro-esophageal reflux disease without esophagitis (principal); E78.5 Hyperlipidemia, unspecified; I10 Essential (primary) hypertension; E11.9 Type 2 diabetes mellitus without complications; Z79.82 Long term (current) use of aspirin; Z87.891 Personal history of nicotine dependence
CPT/HCPCS: 36415; 74176; 80053; 81001; 83605; 83690; 84484; 85025; 85610; 85730; 93005; 99284

== ENCOUNTER 2022-09-03 18:36 | Emergency (ER) | payer MEDICARE, SELFPAY ==
--- NOTE | ~2022-09-03 | XR_ITS ---
XR abdomen/kub 1V 09/03/2022 21:18 INDICATION: Constipation TECHNIQUE: KUB COMPARISON: None FINDINGS: Bowel gas pattern is normal. Moderate colonic fecal loading. There are cholecystectomy clip s. There is severe lower thoracic and lumbar spondylosis with scoliosis. There is no evidence of free air, mass, organomegaly, ascites or obstruction. No abnormal calculi are seen. The bones appear in tact. IMPRESSION: 1: No acute abdominal abnormality identified. Reviewed, dictated and finalized at location A. [employer] S[employer]S ASSISTANT
[2022-09-03 18:56] VITALS: BP 151/72; PULSE 77; RESP 22; TEMP 36.7; O2SAT 95
[2022-09-03 20:46] VITALS: BP 152/76; PULSE 73; RESP 21; TEMP 36.6; O2SAT 95
--- NOTE | 2022-09-03 21:58 | ED.GENADULT ---
HPI - General Adult General Chief complaint: Unspecified Stated complaint: constipation Time Seen by Provider: 09/03/22 21:06 History of Present Illness HPI narrative: 82-year-old male here for evaluation of constipation for the past 3 days. Patient expresses concern because he might have ingested a small piece of plastic covering a piece of pizza last week. He is unsure if he actually ingested this but states that he has worked himself up since and become very anxious about a potential obstruction. He went to [place] emergency room and had a CAT scan of his abdomen that was reassuring. He did have a bowel movement since but has not noted any plastic in his stool which worries him. States that he developed a mild abdominal cramp yesterday that has since resolved. No blood in his stool, nausea or vomiting, fevers or chills. Related Data Home Medications Medication Instructions Recorded Confirmed fluticasone propionate 50 1 spray intranasal DAILY 07/18/19 08/29/22 mcg/actuation nasal spray,suspension (Allergy Relief (fluticasone)) lovastatin 40 mg tablet 40 mg PO DAILY 07/18/19 08/29/22 aspirin 81 mg tablet,delayed 81 mg PO DAILY 08/21/19 08/29/22 release (Michele Low Dose Aspirin) famotidine 40 mg tablet 40 mg PO DAILY 08/21/19 08/29/22 duloxetine 60 mg capsule,delayed 60 mg PO DAILY 09/05/19 08/29/22 release omega-3 fatty acids 1,000 mg 1,000 mg PO DAILY 11/04/20 08/29/22 capsule (Fish Oil Concentrate) loratadine 10 mg capsule 10 mg PO DAILY 06/04/22 08/29/22 multivitamin 1 tablet PO DAILY 06/04/22 08/29/22 semaglutide 7 mg tablet (Rybelsus) 7 mg QAM 06/04/22 08/29/22 sulfamethoxazole 500 mg tablet 250 mg PO HS 06/04/22 08/29/22 tamsulosin 0.4 mg capsule 0.4 mg PO HS 06/04/22 08/29/22 vit A 300 mcg-C 200 mg-E 27 1 tablet PO BID 06/04/22 08/29/22 mg-lutein 2 mg and minerals tablet (Eye Health Plus Lutein) Allergies Allergy/AdvReac Type Severity Reaction Status Date / Time No Known Allergies Allergy Verified 09/03/22 21:56 Review of Systems Review of Systems: Gen.: Denies fevers or chills Eyes: Denies eye pain or visual change ENT: Denies congestion Respiratory: Denies shortness of breath or cough CV: Denies chest pain or palpitations GI: Reports abdominal cramping and constipation. : denies burning, urgency, frequency or hematuria Musculoskeletal: Denies back pain or muscle pain Neuro: Denies numbness, tingling, weakness or focal weakness Skin: Denies rash Except as documented, all other systems reviewed and negative PMFSH Past Medical History Medical History Adenomatous colon polyp Anxiety Arthritis BPH (benign prostatic hyperplasia) Depression Hyperlipemia Hypertension Type 2 diabetes mellitus Viral syndrome Surgical History Surgical History History of cataract removal with insertion of prosthetic lens bilateral History of colonoscopy 2015 History of laparoscopic cholecystectomy 2012 S/P ACL repair Status post meniscectomy BL knee medial Family History Family History Father Diabetes mellitus Coronary artery abnormality Mother Anxiety Sibling Lung cancer Social History Social History Smoking status: Never smoker Tobacco type: cigarettes Second hand tobacco smoke exposure: No Additional smoking assessment comments: STATES SMOKED SOCIALLY IN COLLEGE, DENIES ALL FORMS OF TOBACCO USE Alcohol intake: current Drinks per week: 3 Substance use: never Substance use type: does not use Living arrangements: alone Occupation/Education: retired Spiritual care concerns: No Exam Narrative: APPEARANCE: Well appearing, no pain in distress, well-nourished. Head: Normocephalic and atraumatic. EYES: PERRLA/EOMI, conjunc
== END 2022-09-03 22:33 | disposition home or self-care (01) ==
LOC: ANHED 22:01
PROVIDERS: Emergency Provider Physician Assistant; PCP Internal Medicine
DX: K59.00 Constipation, unspecified (principal); E78.5 Hyperlipidemia, unspecified; I10 Essential (primary) hypertension; E11.9 Type 2 diabetes mellitus without complications; N40.0 Benign prostatic hyperplasia without lower urinary tract symptoms; M19.90 Unspecified osteoarthritis, unspecified site; Z86.010 Personal history of colon polyps; Z98.42 Cataract extraction status, left eye; Z98.41 Cataract extraction status, right eye; Z96.1 Presence of intraocular lens; Z87.891 Personal history of nicotine dependence; Z79.82 Long term (current) use of aspirin; Z79.85 Long-term (current) use of injectable non-insulin antidiabetic drugs
CPT/HCPCS: 74018; 99283

== ENCOUNTER 2022-10-02 14:56 | Outpatient (NON) | payer MEDICARE, SELFPAY | END 2022-10-02 14:57 | disposition home or self-care (01) | LOC: CHSLAB 14:58 | PROVIDERS: Visit Provider Urology | DX: N39.0 Urinary tract infection, site not specified (principal) | CPT/HCPCS: 87077; 87086; 87088; 87186 ==

== ENCOUNTER 2023-01-26 13:37 | Outpatient (CLI) | payer MEDICARE, SELFPAY ==
[2023-01-26 14:51] LABS: Alanine Aminotransferase 33 U/L (16-63); Albumin Level 3.9 g/dL (3.4-5.0); Alkaline Phosphatase 79 U/L (46-116); Anion Gap 5 mmol/L (8-16); Aspartate Amino Transferase 23 U/L (15-37); Bilirubin,Total 0.4 mg/dL (0.00-1.00); Blood Urea Nitrogen 14 mg/dL (7-18); Calcium 9.4 mg/dL (8.5-10.1); Carbon Dioxide 35 mmol/L (21-32); Chloride 105 mmol/L (98-108); Estimated Glomerular Filt Rate > 60; Glucose 108 mg/dL (70-99); Osmolality Calculated 301 mOsm/kg (285-295); Potassium 4.5 mmol/L (3.5-5.1); Prostate Specific Antigen 0.3 ng/mL (< OR = 4.0); Sodium 145 mmol/L (136-145); Total Protein 7.4 g/dL (6.4-8.2)
== END 2023-01-26 13:38 | disposition home or self-care (01) ==
LOC: CHSLAB 13:41
PROVIDERS: PCP Internal Medicine; Visit Provider Urology
DX: N40.1 Benign prostatic hyperplasia with lower urinary tract symptoms (principal); R39.0 Extravasation of urine
CPT/HCPCS: 36415; 80053; 84153

== ENCOUNTER 2023-02-19 14:28 | Outpatient (CLI) | payer MEDICARE, SELFPAY ==
--- NOTE | ~2023-02-19 | XR_ITS ---
EXAMINATION: XR chest 2V DATE: 02/19/2023 15:08 INDICATION: Cough. Fatigue. TECHNIQUE: Frontal and lateral views of the chest were obtained. COMPARISON: Chest 2 views 10/27/2021, CT abdomen and pelvis 08/29/2022 FINDINGS: There is chronic mild elevation of left hemidiaphragm. There is mild atelectasis at the derrick g bases. No pleural effusion or pneumothorax. The heart size is normal. IMPRESSION: 1. Mild atelectasis at the lung bases. Reviewed, dictated and finalized at location E.
[2023-02-19 14:52] LABS: Basophils Absolute Auto 0.03 K/mm3 (0.00-0.10); Basophils Percent Auto 0.5 % (0.0-1.0); Eosinophils Absolute Auto 0.16 K/mm3 (0.02-0.50); Eosinophils Percent Auto 2.9 % (1.0-6.0); Hematocrit 44.1 % (37.0-46.0); Hemoglobin 14.6 g/dL (12.4-15.3); Immature Granulocyte Absolute 0.03 K/mm3 (0.00-0.00); Immature Granulocyte Percent A 0.5 % (0.0-0.0); Lymphocytes Absolute Auto 1.97 K/mm3 (1.10-4.50); Lymphocytes Percent Auto 35.3 % (18.0-42.0); Mean Corpuscular HGB Conc 33.1 g/dL (32.0-36.0); Mean Corpuscular Hemoglobin 31.5 pg (27.0-31.0); Mean Corpuscular Volume 95.2 fL (78.0-102.0); Mean Platelet Volume 9.3 fl (8.7-11.0); Monocytes Absolute Auto 0.39 K/mm3 (0.10-0.90); Neutrophils Percent Auto 53.8 % (50.0-70.0); Platelet Count Result 225 K/mm3 (150-420); Red Blood Count 4.63 M/mm3 (4.70-6.10); Red Cell Distribution Width 12.8 % (11.6-14.4); White Blood Count 5.6 K/mm3 (4.8-10.8)
[2023-02-19 14:57] LABS: Appearance Urine Clear (Clear); Bilirubin Urine Negative (Negative); Blood Urine Negative (Negative); Color Urine Light Yellow (Yellow); Glucose Urine UA Negative (Negative); Ketones Urine Negative (Negative); Leukocyte Esterase Ur Trace (Negative); Nitrate Urine Negative (Negative); Protein Urine Negative (Negative); Urobilinogen Urine 0.2 mg/dL (0.2-1.0)
[2023-02-19 15:05] LABS: Add Urine Microscopic? YES; Bacteria Urine Trace /hpf; Cystine Crystals Urine Present /hpf; RBC Urine None seen /hpf (0-2); WBC Urine 0-3 /hpf (0-3)
[2023-02-19 15:36] LABS: Alanine Aminotransferase 27 U/L (16-63); Albumin Level 3.6 g/dL (3.4-5.0); Alkaline Phosphatase 65 U/L (46-116); Anion Gap 6 mmol/L (8-16); Aspartate Amino Transferase 19 U/L (15-37); Bilirubin,Total 0.2 mg/dL (0.00-1.00); Blood Urea Nitrogen 16 mg/dL (7-18); Calcium 8.9 mg/dL (8.5-10.1); Carbon Dioxide 33 mmol/L (21-32); Chloride 102 mmol/L (98-108); Estimated Glomerular Filt Rate > 60; Glucose 116 mg/dL (70-99); NT Pro B Type Natriuretic Pept 39 pg/mL (0-450); Osmolality Calculated 294 mOsm/kg (285-295); Potassium 4.7 mmol/L (3.5-5.1); Sodium 141 mmol/L (136-145); Thyroid Stimulating Hormone 2.24 uIU/mL (0.36-3.74); Total Protein 6.8 g/dL (6.4-8.2)
== END 2023-02-19 14:29 | disposition home or self-care (01) ==
LOC: CHSIMG 14:32
PROVIDERS: PCP Internal Medicine; Visit Provider Nurse Practitioner Family
DX: R53.83 Other fatigue (principal); I50.9 Heart failure, unspecified; R35.0 Frequency of micturition; R05.9 Cough, unspecified; J98.11 Atelectasis
CPT/HCPCS: 36415; 71046; 80053; 81001; 83880; 84443; 85025; 87077; 87086; 87088

== ENCOUNTER 2023-03-03 13:57 | Outpatient (CLI) | payer MEDICARE, SELFPAY ==
[2023-03-03 14:46] LABS: Cholesterol 158 mg/dL (0-200); HDL Direct 46 mg/dL (40-60); LDL Cholesterol Calculated 83 mg/dL (<130); Triglycerides 147 mg/dL (0-150)
== END 2023-03-03 13:58 | disposition home or self-care (01) ==
LOC: CHSLAB 13:59
PROVIDERS: PCP Internal Medicine; Visit Provider Internal Medicine Cardiovascular Disease
DX: E78.5 Hyperlipidemia, unspecified (principal)
CPT/HCPCS: 36415; 80061

== ENCOUNTER 2023-04-07 08:57 | Outpatient (CLI) | payer MEDICARE, SELFPAY ==
[2023-04-07 10:51] LABS: Hemoglobin A1C 5.9 % (<5.7); Urine Cotinine NEGATIVE
== END 2023-04-07 08:58 | disposition home or self-care (01) ==
LOC: ANHSURGERY 09:02
PROVIDERS: PCP Internal Medicine; Visit Provider Orthopaedic Surgery
DX: M17.11 Unilateral primary osteoarthritis, right knee (principal); Z01.818 Encounter for other preprocedural examination
CPT/HCPCS: 80307; 83036; 86850; 86900; 86901; 87081

== ENCOUNTER 2023-04-19 02:33 | Day surgery (SDC) | payer MEDICARE, SELFPAY ==
[2023-04-07 09:27] VITALS: BP 125/76; PULSE 67; RESP 16; TEMP 36.9; O2SAT 93; BMI 34.2
--- NOTE | 2023-04-07 09:41 | PC.NURSE ---
Report to the Outpatient Waiting Room, entrance under the green pavilion located off [facility], at time __6:00AM on date __04/19/23 . Planned Procedure Time: _7:30AM . Time changes happen often and if your time is changed the preop area will call you the afternoon before. - You and your visitor will be asked to self-screen and do not enter if you have any COVID symptoms. - A mask is optional within the hospital at this time. Patients may have clear liquids (water, carbonated beverages, clear teas, apple juice) until 3 hours prior to surgery with a maximum of 20 ounces. - No food from midnight until time of surgery Take the following medications with a SIP of water the morning of surgery: ___TRELEGY ELLIPTA INHALER DO NOT STOP ANY OF YOUR OTHER PRESCRIPTION MEDICATIONS PRIOR TO SURGERY ?EXCEPT THE FOLLOWING Medications to discontinue per physician __HOLD ASPIRIN AND ALL VITAMINS/SUPPLEMENTS FOR 7 DAYS PRE-OP PER DR JOHNSTON___ Date to take last dose____04/12/23 Please no make-up, nail nigerien, hairspray, perfume, deodorant, or body powder the day of surgery. No jewelry (including any body piercings) or valuables the day of surgery, leave them at home. Please take a shower or bath the night before, or the morning of, surgery with an antibacterial soap. Wear comfortable, loose fitting clothing. Children are encouraged to wear pajamas. - Jewelry must be removed prior to entering the operating room. Rings and piercings that are not removed may be cut off. - The hospital will not accept responsibility for valuables. - Please leave all valuables, including medications, at home the day of surgery. If you are going home after surgery, a licensed escort car driver must drive you home. - NO public transportation without another adult if you receive anesthesia. - We recommend that an adult stay with you for 24 hours following discharge. - We also recommend that you do not drive, make important decision, drink alcoholic beverages, or take any drugs that were not prescribed by your health care provider for at least 24 hours after your discharge time. For Pediatric surgeries, we recommend two adults accompany the child home. Follow any additional instructions given to you from your surgeon. HIBICLENS SHOWER If you or anyone in your household have experienced Covid symptoms in the past week, please notify your surgeon or the nurse liaison at the phone number below for possible testing. Telephone instructions given to __PATIENT and asked if any additional questions and then verbalized understanding. Patient advised to call surgeon office or pre surgery nurse liaison [phone] if any additional questions.
--- NOTE | 2023-04-16 07:54 | PM.IMHP ---
H&P: HPI History of Present Illness Date/Time: 04/16/23 07:54 Chief Complaint: Right knee DJD Narrative: 82-year-old male patient of who presents today for right total knee arthroplasty the cortisone injection left knee. 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 He has flexion contractures of both knees. He is having significant pain on a daily basis in both of his knees. It is affecting his ability to ambulate daily or do most daily activities. Patient feels at this point he would rather proceed with total knee arthroplasty rather continue nonsurgical treatment. Review of Systems Review of Systems: All systems reviewed & are unremarkable except as noted in HPI and below PMFSH Past Medical History Medical History Adenomatous colon polyp Anxiety Arthritis BPH (benign prostatic hyperplasia) Depression Hyperlipemia Hypertension Type 2 diabetes mellitus Viral syndrome Surgical History Surgical History History of cataract removal with insertion of prosthetic lens bilateral History of colonoscopy 2016 History of laparoscopic cholecystectomy 2013 S/P ACL repair Status post meniscectomy BL knee medial Family History Family History Father Diabetes mellitus Coronary artery abnormality Mother Anxiety Sibling Lung cancer Social History Social History Smoking status: Former smoker Tobacco type: cigars Second hand tobacco smoke exposure: No Smoking end date: 02/06/85 Additional smoking assessment comments: STATES SMOKED SOCIALLY IN COLLEGE, DENIES ALL FORMS OF TOBACCO USE Alcohol intake: current Drinks per week: 10 Substance use: never Substance use type: does not use Living arrangements: alone Occupation/Education: retired Spiritual care concerns: No Meds Home Medications and Allergies Home Medications Medication Instructions Recorded Confirmed Type fluticasone propionate 50 1 spray intranasal DAILY 07/18/19 04/07/23 History mcg/actuation nasal spray,suspension (Allergy Relief (fluticasone)) lovastatin 40 mg tablet 40 mg PO QPM 07/18/19 04/07/23 History aspirin 81 mg tablet,delayed 81 mg PO DAILY 08/21/19 04/07/23 History release (Michele Low Dose Aspirin) famotidine 40 mg tablet 40 mg PO BID 08/21/19 04/07/23 History duloxetine 60 mg capsule,delayed 60 mg PO QPM 09/05/19 04/07/23 History release multivitamin 1 tablet PO DAILY 06/04/22 04/07/23 History semaglutide 7 mg tablet (Rybelsus) 7 mg PO QAM 06/04/22 04/07/23 History tamsulosin 0.4 mg capsule 0.4 mg PO QPM 06/04/22 04/07/23 History vit A 300 mcg-C 200 mg-E 27 1 tablet PO BID 06/04/22 04/07/23 History mg-lutein 2 mg and minerals tablet (Eye Health Plus Lutein) fluticasone fur. 100 mcg-umeclid 1 ea inhalation QAM 04/07/23 04/07/23 History 62.5 mcg-vilant 25 mcg inhalat.powder (Trelegy Ellipta) loratadine 10 mg capsule 10 mg PO DAILY 04/07/23 04/07/23 History montelukast 10 mg tablet 10 mg PO DAILY 04/07/23 04/07/23 History omega 2-wgx-gwz-fish oil 1,200 mg 1,200 cap PO BID 04/07/23 04/07/23 History (144 mg-216 mg) capsule (Fish Oil) psyllium husk 0.4 gram capsule 0.4 g PO DAILY PRN Constipation 04/07/23 04/07/23 History (Daily Fiber) Allergies Allergy/AdvReac Type Severity Reaction Status Date / Time No Known Allergies Allergy Verified 04/07/23 10:10 Exam Narrative: 82-year-old male he is 5 ft 5 206 lb, BMI is 33.8. He is alert pleasant. Range of motion right knee is from 12-120 degrees. Trace effusion. Normal stability. Hip range of motion is full without discomfort, negative Stinchfield maneuver. Normal quad strength. Intact sensation to both lower extremities, no edema in either lower extrem
--- NOTE | 2023-04-19 06:24 | SUR.PREOP ---
8475- Called Dr. Chowdhury to update that pt has a small dime size wound on back of right calf. Wounds has small amount of redness around edge and is open. Will send picture.
[2023-04-19 06:30] VITALS: BP 140/73; PULSE 71; RESP 16; TEMP 36.7; O2SAT 93
--- NOTE | 2023-04-19 06:51 | SUR.PREOP ---
0680- Sent Dr. Chowdhury a picture of wound. He stated he wants to wait to do total joint surgery till healed. Evelyn updated pt and family. Discharge instructions given to pt and daughter. All questions answered. Ordered dc'ed.
== END 2023-04-19 06:53 | disposition home or self-care (01) ==
PROVIDERS: PCP Internal Medicine; Visit Provider Orthopaedic Surgery
PROC: (CPT 27447; principal; 2023-04-19 07:30)
DX: M17.11 Unilateral primary osteoarthritis, right knee (principal); S81.801A Unspecified open wound, right lower leg, initial encounter; X58.XXXA Exposure to other specified factors, initial encounter; Z53.09 Procedure and treatment not carried out because of other contraindication
CPT/HCPCS: 99212; G0463; J0171; J1885; J2270; J2795

== ENCOUNTER 2023-06-15 09:24 | Outpatient (CLI) | payer MEDICARE, SELFPAY ==
[2023-06-15 10:13] LABS: Basophils Percent Auto 0.7 % (0.2-1.2); Eosinophils Absolute Auto 0.2 K/mm3 (0-0.3); Eosinophils Percent Auto 2.8 % (0-4.4); Hematocrit 44.6 % (42.0-52.0); Hemoglobin 14.7 g/dL (14.0-18.0); Immature Granulocyte Absolute 0.04 K/mm3 (0.00-0.031); Immature Granulocyte Percent A 0.7 % (0-0.5); Immature Platelet Fraction Pct 2.9 % (0.9-11.2); Lymphocytes Absolute Auto 1.54 K/mm3 (0.9-3.2); Lymphocytes Percent Auto 27.4 % (18.3-44.2); Mean Corpuscular Hemoglobin 30.8 pg (26-34); Mean Corpuscular Volume 93.3 fl (80-100); Monocytes Absolute Auto 0.4 K/mm3 (0.1-0.6); Monocytes Percent Auto 6.6 % (2.6-8.5); Neutrophils Absolute Auto 3.5 K/mm3 (1.3-6.7); Neutrophils Percent Auto 61.8 % (45.5-73.1); Platelet Count Result 218 k/mm3 (150-375); Red Blood Count 4.78 M/mm3 (4.6-6.20); Red Cell Distribution Width 12.6 % (11.5-14.5); White Blood Count 5.6 K/mm3 (4.5-10.0)
[2023-06-15 10:14] LABS: Urine Cotinine NEGATIVE
[2023-06-15 10:16] LABS: Albumin Level 4.2 g/dL (3.5-5.1); Anion Gap 6 mmol/L (8-16); Blood Urea Nitrogen 18 mg/dL (9-20); Calcium 9.5 mg/dL (8.4-10.2); Carbon Dioxide 30 mmol/L (22-30); Chloride 103 mmol/L (98-107); Estimated Glomerular Filt Rate > 60; Glucose 133 mg/dL (65-110); Sodium 139 mmol/L (137-145)
== END 2023-06-15 09:25 | disposition home or self-care (01) ==
PROVIDERS: PCP Internal Medicine; Visit Provider Orthopaedic Surgery
DX: M17.11 Unilateral primary osteoarthritis, right knee (principal); Z01.818 Encounter for other preprocedural examination
CPT/HCPCS: 80048; 80307; 82040; 85025; 85055; 86850; 86900; 86901; 87081

== ENCOUNTER 2023-06-23 01:46 | Day surgery (SDC) | payer MEDICARE, SELFPAY ==
[2023-06-10 13:51] VITALS: BMI 34.2
--- NOTE | 2023-06-10 14:04 | PC.NURSE ---
PRE-OP INSTRUCTIONS, PLEASE READ CAREFULLY Report to the Outpatient Waiting Room, entrance under the green pavilion located off [facility], at time _1000_ on date _06/23/23_. Planned Procedure Time: _1200_. PACK A SMALL OVERNIGHT BAG AND LEAVE IN THE CAR ALONG WITH YOUR WALKER Time changes happen often and if your time is changed the preop area will call you the afternoon before. - You and your visitor will be asked to self-screen and do not enter if you have any COVID symptoms. - A mask is optional within the hospital at this time. -VISITING HOURS 8AM-8PM Patients may have clear liquids (water, carbonated beverages, clear teas, apple juice) until 3 hours prior to surgery (0900 AM) with a maximum of 20 ounces. - No food from midnight until time of surgery Take the following medications with a SIP of water the morning of surgery: _TRELEGY INHALER_ DO NOT STOP ANY OF YOUR OTHER PRESCRIPTION MEDICATIONS PRIOR TO SURGERY ?EXCEPT THE FOLLOWING Medications to discontinue per DR. JOHNSTON - _ASPIRIN, VITAMINS & SUPPLEMENTS 7 DAYS PRIOR TO SURGERY (PER PATIENT), Date to take last dose 06/15/23_ Please no make-up, nail hungarian, hairspray, perfume, deodorant, or body powder the day of surgery. No jewelry (including any body piercings) or valuables the day of surgery, leave them at home. Please take a shower or bath the night before, or the morning of, surgery with an antibacterial soap. Wear comfortable, loose fitting clothing. - Jewelry must be removed prior to entering the operating room. Rings and piercings that are not removed may be cut off. - The hospital will not accept responsibility for valuables. - Please leave all valuables, including medications, at home the day of surgery. If you are going home after surgery, a licensed cab driver must drive you home. - NO public transportation without another adult if you receive anesthesia. - We recommend that an adult stay with you for 24 hours following discharge. - We also recommend that you do not drive, make important decision, drink alcoholic beverages, or take any drugs that were not prescribed by your health care provider for at least 24 hours after your discharge time. Follow any additional instructions given to you from your surgeon. If you or anyone in your household have experienced Covid symptoms in the past week, please notify your surgeon or the nurse liaison at the phone number below for possible testing. Telephone instructions given to _PATIENT_and asked if any additional questions and then verbalized understanding. Patient advised to call surgeon office or pre surgery nurse liaison [phone] if any additional questions.
--- NOTE | 2023-06-21 13:53 | PM.IMHP ---
H&P: HPI History of Present Illness Date/Time: 06/21/23 13:53 Chief Complaint: Bilateral knee DJD Narrative: 82-year-old male patient of Dr. Avendaño who presents today for a right total knee arthroplasty with cortisone injection of the left knee. Patient has been having symptoms in both of his knees for years. He has had open meniscectomy surgeries in the past. 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 At this point the right knee has been hurting more than the left. He has tried anti-inflammatories without improvement of his symptoms. He has had cortisone injections in the past again without improvement of his symptoms. At this point he feels the pain is keeping him from daily activities and he would like proceed with total knee arthroplasty at this point. Review of Systems Review of Systems: All systems reviewed & are unremarkable except as noted in HPI and below PMFSH Past Medical History Medical History Adenomatous colon polyp Anxiety Arthritis BPH (benign prostatic hyperplasia) Depression Hyperlipemia Hypertension Type 2 diabetes mellitus Viral syndrome Surgical History Surgical History History of cataract removal with insertion of prosthetic lens bilateral History of colonoscopy 2016 History of laparoscopic cholecystectomy 2012 S/P ACL repair Status post meniscectomy BL knee medial Family History Family History Father Diabetes mellitus Coronary artery abnormality Mother Anxiety Sibling Lung cancer Social History Social History Smoking status: Former smoker Tobacco type: cigars Second hand tobacco smoke exposure: No Smoking end date: 02/06/85 Additional smoking assessment comments: STATES SMOKED SOCIALLY IN COLLEGE, DENIES ALL FORMS OF TOBACCO USE Alcohol intake: current Drinks per week: 10 Substance use: never Substance use type: does not use Living arrangements: alone Occupation/Education: retired Spiritual care concerns: No Meds Home Medications and Allergies Home Medications Medication Instructions Recorded Confirmed Type fluticasone propionate 50 1 spray intranasal DAILY 07/18/19 06/10/23 History mcg/actuation nasal spray,suspension (Allergy Relief (fluticasone)) lovastatin 40 mg tablet 40 mg PO QPM 07/18/19 06/10/23 History aspirin 81 mg tablet,delayed 81 mg PO DAILY 08/21/19 06/10/23 History release (Michele Low Dose Aspirin) famotidine 40 mg tablet 40 mg PO BID 08/21/19 06/10/23 History duloxetine 60 mg capsule,delayed 60 mg PO QPM 09/05/19 06/10/23 History release multivitamin 1 tablet PO DAILY 06/04/22 06/10/23 History semaglutide 7 mg tablet (Rybelsus) 7 mg PO QAM 06/04/22 06/10/23 History tamsulosin 0.4 mg capsule 0.4 mg PO QPM 06/04/22 06/10/23 History vit A 300 mcg-C 200 mg-E 27 1 tablet PO BID 06/04/22 06/10/23 History mg-lutein 2 mg and minerals tablet (Eye Health Plus Lutein) fluticasone fur. 100 mcg-umeclid 1 ea inhalation QAM 04/07/23 06/10/23 History 62.5 mcg-vilant 25 mcg inhalat.powder (Trelegy Ellipta) loratadine 10 mg capsule 10 mg PO DAILY 04/07/23 06/10/23 History montelukast 10 mg tablet 10 mg PO DAILY 04/07/23 06/10/23 History omega 2-emb-hdh-fish oil 1,200 mg 1,200 cap PO BID 04/07/23 06/10/23 History (144 mg-216 mg) capsule (Fish Oil) psyllium husk 0.4 gram capsule 0.4 g PO DAILY PRN Constipation 04/07/23 06/10/23 History (Daily Fiber) Allergies Allergy/AdvReac Type Severity Reaction Status Date / Time No Known Allergies Allergy Verified 06/10/23 13:43 Exam Narrative: 82-year-old male alert pleasant. He is 5 ft 5 206 lb BMI is 33.8. His right knee range of motion is from 12-120 degrees. Trace effusion. Normal stability. H
[2023-06-23] VITALS (12 sets, daily range): BP systolic 102–150; BP diastolic 52–69; PULSE 58–85; RESP 16–20; TEMP 36.2–37.1; O2SAT 91–100
--- NOTE | ~2023-06-23 | XR_ITS ---
EXAMINATION: [id number] DATE: 06/23/2023 16:54 INDICATION: Right knee arthroplasty. Postop. TECHNIQUE: 2 views of right knee were obtained. COMPARISON: None. FINDINGS: There is a total right knee arthroplasty without patellar resurfacing in near-anatomic alig nment. No fracture. There are osteophytes of the patella. There is gas in the knee joint and soft tis sues, consistent with recent surgery. IMPRESSION: 1. Total right knee arthroplasty in near-anatomic alignment. Reviewed, dictated and finalized at location A. KERCHIEF MAKER
[2023-06-23] MEDS: ACETAMINOPHEN 500 MG TABLET 1000 MG PO ×2 (10:29→20:43)
[2023-06-23] MEDS: LACTATED RINGERS 1,000 ML 30 ML IV CONT ×2 (10:30→16:28)
--- NOTE | 2023-06-23 10:37 | WPDANESEPPF ---
Anes - Initial Pre Proc Eval Procedure: Operation Date: 06/23/23 12:00 Proposed Procedures p Right Total Knee Arthroplasty, Cortisone Injection Left Knee - Chet Chowdhury MD Date/Time: 06/23/23 10:37 Surgeon: Chet Chowdhury MD Pre Op Diagnosis: severe OA right knee, left knee OA Patient Data Age: 82 Gender: M Height: 1.65 m Weight: 93.18 kg Allergies Allergy/AdvReac Type Severity Reaction Status Date / Time No Known Allergies Allergy Verified 06/23/23 10:15 Home Medications Medication Instructions Recorded Confirmed Type fluticasone propionate 50 1 spray intranasal DAILY 07/18/19 06/10/23 History mcg/actuation nasal spray,suspension (Allergy Relief (fluticasone)) lovastatin 40 mg tablet 40 mg PO QPM 07/18/19 06/10/23 History aspirin 81 mg tablet,delayed 81 mg PO DAILY 08/21/19 06/10/23 History release (Michele Low Dose Aspirin) famotidine 40 mg tablet 40 mg PO BID 08/21/19 06/10/23 History duloxetine 60 mg capsule,delayed 60 mg PO QPM 09/05/19 06/10/23 History release multivitamin 1 tablet PO DAILY 06/04/22 06/10/23 History semaglutide 7 mg tablet (Rybelsus) 7 mg PO QAM 06/04/22 06/10/23 History tamsulosin 0.4 mg capsule 0.4 mg PO QPM 06/04/22 06/10/23 History vit A 300 mcg-C 200 mg-E 27 1 tablet PO BID 06/04/22 06/10/23 History mg-lutein 2 mg and minerals tablet (Eye Health Plus Lutein) fluticasone fur. 100 mcg-umeclid 1 ea inhalation QAM 04/07/23 06/10/23 History 62.5 mcg-vilant 25 mcg inhalat.powder (Trelegy Ellipta) loratadine 10 mg capsule 10 mg PO DAILY 04/07/23 06/10/23 History montelukast 10 mg tablet 10 mg PO DAILY 04/07/23 06/10/23 History omega 0-ctf-tsz-fish oil 1,200 mg 1,200 cap PO BID 04/07/23 06/10/23 History (144 mg-216 mg) capsule (Fish Oil) psyllium husk 0.4 gram capsule 0.4 g PO DAILY PRN Constipation 04/07/23 06/10/23 History (Daily Fiber) Patient hx anesthesia problems: none Family hx anesthesia problems: none Results Review: All pre-operative results and documents have been reviewed as part of the pre-operative evaluation. [facility] Past Medical History Medical History Adenomatous colon polyp Anxiety Arthritis BPH (benign prostatic hyperplasia) Depression Hyperlipemia Hypertension Type 2 diabetes mellitus Viral syndrome Surgical History Surgical History History of cataract removal with insertion of prosthetic lens bilateral History of colonoscopy 2015 History of laparoscopic cholecystectomy 2012 S/P ACL repair Status post meniscectomy BL knee medial Family History Family History Father Diabetes mellitus Coronary artery abnormality Mother Anxiety Sibling Lung cancer Social History Social History Smoking status: Former smoker Tobacco type: cigars Second hand tobacco smoke exposure: No Smoking end date: 02/06/85 Additional smoking assessment comments: STATES SMOKED SOCIALLY IN COLLEGE, DENIES ALL FORMS OF TOBACCO USE Alcohol intake: current Drinks per week: 10 Substance use: never Substance use type: does not use Living arrangements: alone Occupation/Education: retired Spiritual care concerns: No Anes - Eval Final PreProcedure Day of Procedure 06/23/23 10:37 Patient weight: obese Heart: regular rate and rhythm Lungs: clear to auscultation Airway: Mallampati scale class II Neurological: alert and oriented Last oral intake: >/= 8 hours ASA classification: III Emergent: no Anesthetic plan: proceed Anesthesia type and monitoring: general ETT and standard monitoring Results Review: All pre-operative results and documents have been reviewed as part of the pre-operative evaluation. Informed Consent: The patient's anesthetic plan and its attendant risks and benef
[2023-06-23] MEDS: TRANEXAMIC ACID 1,000MG/ISO100 1,000 MG/100 ML BAG 200 MG IVPB (11:53)
--- NOTE | 2023-06-23 12:02 | WPDHPUPDATE1 ---
History and Physical Update Update Date/Time: 06/23/23 12:02 History and Physical has been reviewed, including an updated exam of the patient. There are NO changes in the patient's condition. Risks, benefits, and alternatives have been discussed and questions answered. Patient agrees to proceed with procedure.
[2023-06-23] MEDS: ceFAZolin 2 GM/D5W 50 ML 2 GM/50 ML BAG IVPB (12:09)
[2023-06-23] MEDS: ceFAZolin SODIUM 1 GM VIAL 3 GM (13:01)
[2023-06-23] MEDS: GENTAMICIN BONE CEMENT REFOBACIN 2 EACH TOPICAL (13:02)
[2023-06-23] MEDS: methylPREDNISolone ACETATE 80 MG/ML VIAL I-ARTICULR (13:03)
[2023-06-23] MEDS: TRANEXAMIC ACID 1,000 MG/10 ML AMPUL 2 MG IV PUSH (15:07)
--- NOTE | 2023-06-23 16:42 | W.PM.PROC2 ---
Procedure Note - Detailed Date of Procedure 06/23/23 Pre-op Diagnosis severe OA right knee, left knee OA Post-op Diagnosis Same Procedure Performed Right total knee arthroplasty, cortisone injection left knee Surgeon Chet Chowdhury MD [employer] General Description of Procedure Patient was brought to the operating room and general anesthesia was administered. He received 2 g of Ancef weight based vancomycin 1 g of tranexamic acid preoperatively. The left knee was prepped with the chlorhexidine and 80 mg of Depo-Medrol and 3 cc 1% lidocaine were injected lateral parapatellar approach without difficulty. The right knee was prepped draped usual fashion. Limb was exsanguinated tourniquet elevated to 300 mmHg. An 8 in longitudinal incision was used. We incorporated the previous anteromedial incision. We did not use the far medial extent and distally we did not use the extent that went across the tibial tubercle. A standard parapatellar arthrotomy was utilized. Partial infrapatellar fat pad excision performed. Suprapatellar fat pad excised and quadriceps synovectomy carried out. The flexion was very limited under anesthesia therefore we released quadriceps from its adhesions to the scarred suprapatellar pouch. The patella had osteophytes which were trimmed and a limited lateral facetectomy was performed and cartilage of the remaining patella looked excellent so non resurfacing was employed. Osteophytes removed from around the femur and anteromedial tibial plateau. The osteophytes were markedly enlarged. There was longitudinal grooving and ridges in the medial femoral condyle and medial tibial plateau was significant tibial plateau wear posteriorly. The guide jarocho was inserted on the femoral canal after aspiration of canal contents using the 5 degree valgus cutting bushing 9 mm of bone removed the distal femur. Next the tibial plateau was cut. The initial cut did not quite get us to the base of the defect and additional 3 mm of bone was removed which gave us a flush cut with the posteromedial tibial defect. Meniscal remnants were excised. We carefully expose the medial tibial osteophyte by carefully peeling the capsule insertion to expose the osteophyte which was trimmed medially. We did not have access to the posteromedial osteophyte yet. PCL was recessed. Flexion gap measured a tight 10 mm medially and 12 mm laterally. There was some bone loss in the posterior medial femoral condyle due to the wearing grooving which prevented the medial footplate from sitting on the bone appropriately on the medial side. I set the femoral sizing guide at 5? of external rotation and internally rotated the posterior referencing foot medially so that the guide matched Whitesides line and this left the footplate about a mm off the bone. The 72.5 vanguard AP cutting blocks applied the distal femur this was going to notch. We introduced a few degrees of posterior slope on the distal femoral cut reapplied cutting block in this worked well giving us a flush cut anteriorly without notching and posterior chamfer cuts were made. We trialed and the femoral component fit nicely. We had ample play to insert 10 mm CR insert at 90? of flexion and we had about 2.5 mm of play both medially and laterally so we had good balance of 90?. We lacked still about 20? of extension with tightness medially. At this point we exposed the tibia and sized the tibia to a size 75. Seventy-nine was going to overhang at proper rotation. Seventy-nine fit line to line anteromedially at proper rotation and position. This left exposed remaining medial tibial osteophyte and large posteromedial tibial osteophyte. Seventy-five was punched. We then carefully peeled off the remaining posteromedial capsule from the large posteromedial tibial osteophyte. Some of the upper fibers of the semimembranosus tendon were elevated and protected the capsule with a retractor we then used a 2 mm drill
[2023-06-23 17:32] LABS: Glucose Point of Care 188 mg/dl (65-105)
--- NOTE | 2023-06-23 18:10 | PC.NURSE ---
This patient, Kan Lawson, was admitted to [facility] Surg Room 330-02. Patient/family oriented to hospital policies and general routines including ID bracelet, bed and alarms, visiting hours, pain management, procedures, bathroom and other care routines, personal items, smoking policy, room service/diet, and visiting hours. Information on how to activate the Rapid Response Team has been discussed. Patient/Family are encouraged to report perceived risks to care and to ask questions if they do not understand what they are told or what they should do.
[2023-06-23] MEDS: DULoxetine HCL 60 MG CAPSULE.DR PO (20:43)
[2023-06-23] MEDS: TAMSULOSIN HCL 0.4 MG CAPSULE PO (20:43)
[2023-06-23] MEDS: OMEGA 3 POLYUNSAT FATTY ACIDS 1 GM CAP PO (20:43)
[2023-06-23] MEDS: LOVASTATIN 20 MG TABLET 40 MG PO (20:43)
[2023-06-23] MEDS: SENNA/DOCUSATE SODIUM TABLET 2 TAB PO (20:43)
[2023-06-23] MEDS: oxyCODONE HCL (*CRX) 5 MG TAB IR PO (20:43)
[2023-06-23] MEDS: SODIUM CHLORIDE 0.9% IV 1,000 ML 125 ML IV CONT (20:44)
[2023-06-23] MEDS: FAMOTIDINE 20 MG TABLET 40 MG PO (20:44)
[2023-06-23] MEDS: VANCOMYCIN 1,000 MG/NS 250 ML 1,000 MG/250 ML BAG 250 MG IVPB (21:43)
[2023-06-23] MEDS: ceFAZolin 1 GM/NS 50 ML 1 GM/50 ML BAG IVPB (22:47)
[2023-06-24] VITALS: BP 102/54; PULSE 80; RESP 16; TEMP 36.6; O2SAT 91; O2SAT 95
[2023-06-24] MEDS: ACETAMINOPHEN 500 MG TABLET 1000 MG PO ×3 (03:00→14:00)
[2023-06-24] MEDS: oxyCODONE HCL (*CRX) 5 MG TAB IR PO ×2 (03:58→07:14)
[2023-06-24 04:00] VITALS: BP 120/63; PULSE 75; RESP 18; TEMP 36.3; O2SAT 95
[2023-06-24 06:49] LABS: Hematocrit 38.9 % (42.0-52.0); Hemoglobin 12.3 g/dL (14.0-18.0); Mean Corpuscular HGB Conc 31.6 g/dl (32-36); Mean Corpuscular Hemoglobin 30.8 pg (26-34); Mean Corpuscular Volume 97.5 fl (80-100); Mean Platelet Volume 10.2 fl (7.4-10.4); Platelet Count Result 197 k/mm3 (150-375); Red Blood Count 3.99 M/mm3 (4.6-6.20); Red Cell Distribution Width 13.3 % (11.5-14.5); White Blood Count 15.5 K/mm3 (4.5-10.0)
[2023-06-24] MEDS: CELECOXIB 100 MG CAPSULE PO (07:14)
[2023-06-24] MEDS: ceFAZolin 1 GM/NS 50 ML 1 GM/50 ML BAG IVPB (07:15)
[2023-06-24 07:21] LABS: Anion Gap 7 mmol/L (8-16); Blood Urea Nitrogen 20 mg/dL (9-20); Calcium 8.9 mg/dL (8.4-10.2); Carbon Dioxide 26 mmol/L (22-30); Chloride 105 mmol/L (98-107); Estimated CRCL calculation 75 ml/min; Estimated Glomerular Filt Rate > 60; Glucose 154 mg/dL (65-110); Potassium 4.9 mmol/L (3.4-5.0); Sodium 138 mmol/L (137-145)
[2023-06-24 07:34] LABS: Band Neutrophils Percent 9 % (0-6); Lymphocytes Absolute Manual 0.31 K/mm3 (1.1-4.5); Lymphocytes Percent Manual 2 % (18-44); Monocytes Absolute Manual 0.31 K/mm3 (0.1-0.90); Monocytes Percent Manual 2 % (3-9); Neutrophils Absolute Manual 14.88 K/mm3 (1.3-6.7); Neutrophils Percent Manual 87 % (46-73); Total Cells Counted 100
[2023-06-24 07:35] LABS: Ovalocytes 1+ (NORMAL); Platelet Estimate Adequate (Adequate); Poikilocytosis 1+ (NORMAL)
[2023-06-24 07:36] LABS: Schistocytes None Seen (NORMAL)
[2023-06-24] MEDS: FLUTICASONE/UMECLIDIN/VILANTER 100-62.5-25 MCG ELLIPTA 1 PUFF INHALATION (08:32)
[2023-06-24 08:33] VITALS: RESP 18; O2SAT 93
[2023-06-24 08:35] VITALS: BP 110/69; PULSE 83; RESP 18; TEMP 37.2; O2SAT 93
--- NOTE | 2023-06-24 08:36 | PM.PNORT ---
Progress Note: A&P Assessment and Plan (1) Total knee replacement status: Code(s): Z96.659 - Presence of unspecified artificial knee joint Status: Acute Plan Patient looks and feels good postop day 1 status post right total knee arthroplasty. See discharge orders. The patient was advised on his home medication discharge instructions and to avoid ice on the incision by myself and Dr. Chowdhury as well. The patient voiced understanding and agrees above plan. He will call the office immediately for any further problems difficulties or questions. Subjective Subjective Date/Time Seen: 06/24/23 08:36 Interval history: Patient doing very well postop day 1 status post right total knee arthroplasty. No complaints very comfortable in terms of pain. Review of Systems Review of Systems: Ten point review of systems negative Exam Narrative: vital signs stable afebrile neurovascular is intact wound is clean and dry looks good calves are benign he easily does a straight leg raise. He is alert oriented x3. Normal mood and affect. Objective Data Vital Signs Vital Signs: Vital Signs - 24 hr 06/23/23 10:50 06/23/23 16:28 06/23/23 16:40 Temperature 36.4 C 37.1 C Pulse Rate 58 L 83 80 Respiratory Rate 16 20 18 Blood Pressure 102/57 L 150/59 H 141/55 H Pulse Oximetry 97 95 96 Oxygen Delivery Room Air Simple Face Mask Simple Face Mask Oxygen Flow Rate 8 8 Fraction of Inspired Oxygen 06/23/23 16:55 06/23/23 17:10 06/23/23 17:24 Temperature Pulse Rate 82 81 85 Respiratory Rate 18 19 19 Blood Pressure 128/52 L 127/53 L 129/53 L Pulse Oximetry 96 95 95 Oxygen Delivery Simple Face Mask Simple Face Mask Simple Face Mask Oxygen Flow Rate 8 8 8 Fraction of Inspired Oxygen 06/23/23 17:40 06/23/23 17:55 06/23/23 18:10 Temperature 36.2 C L Pulse Rate 84 83 83 Respiratory Rate 19 19 16 Blood Pressure 128/58 L 119/58 L 122/65 Pulse Oximetry 91 95 100 Oxygen Delivery Nasal Cannula Nasal Cannula Oxygen Flow Rate 2 3 Fraction of Inspired Oxygen 06/23/23 18:25 06/23/23 18:55 06/23/23 18:55 Temperature 36.3 C L 36.2 C L 36.2 C L Pulse Rate 79 74 74 Respiratory Rate 16 18 16 Blood Pressure 117/69 121/63 117/66 Pulse Oximetry 92 98 100 Oxygen Delivery Oxygen Flow Rate Fraction of Inspired Oxygen 06/23/23 18:10 06/23/23 19:55 06/24/23 00:00 Temperature 36.2 C L 36.6 C Pulse Rate 74 80 Respiratory Rate 18 16 Blood Pressure 119/67 102/54 L Pulse Oximetry 94 94 91 Oxygen Delivery Nasal Cannula Oxygen Flow Rate 1 Fraction of Inspired Oxygen 06/24/23 00:00 06/24/23 04:00 06/24/23 08:33 Temperature 36.3 C L Pulse Rate 75 Respiratory Rate 18 Blood Pressure 120/63 Pulse Oximetry 95 95 93 Oxygen Delivery Nasal Cannula Nasal Cannula Oxygen Flow Rate 2 2 Fraction of Inspired Oxygen 28 06/24/23 08:33 06/24/23 08:35 Temperature 37.2 C Pulse Rate 83 Respiratory Rate 18 18 Blood Pressure 110/69 Pulse Oximetry 93 Oxygen Delivery Oxygen Flow Rate Fraction of Inspired Oxygen Intake/Output Intake/Output: Intake & Output 06/21/23 06/22/23 06/23/23 06/24/23 23:59 23:59 23:59 23:59 Intake Total 1300 150 Balance 1300 150 Meds/Results Medications: Active Medications Generic Name Dose Route Start Last Admin Trade Name Freq PRN Reason Stop Dose Admin Acetaminophen 1,000 mg 06/24/23 02:00 06/24/23 07:14 Acetaminophen 500 Mg Tablet PO 1,000 mg Q6H MELANIE Administration Apixaban 2.5 mg 06/24/23 09:00 Apixaban 2.5 Mg Tablet PO Q12HR [facility] Cefdinir 300 mg 06/24/23 21:00 Cefdinir 300 Mg Capsule PO 07/04/23 09:01 Q12HR [facility] Celecoxib 100 mg 06/24/23 08:00 06/24/23 07:14 Celecoxib 100 Mg Capsule PO 100 mg DAILY@0800 MELANIE Administration Duloxetine HCl 60 mg 06/23/23 18:06 06/23/23 20:43 Duloxetine Hcl 60 Mg Capsule.Dr PO 60 mg QPM MELANIE Administration Famotidine
--- NOTE | 2023-06-24 08:52 | PM.DS ---
DS: Admitting Diagnosis Discharge Date 06/24/2023 Admitting Diagnosis admitting diagnosis severe primary osteoarthritis right knee joint. Discharge diagnosis severe primary osteoarthritis right knee joint status post right total knee arthroplasty. DS: Summary Hospital Course Hospital Course: The patient was taken to the operating room on 06/23/2023 that point he underwent a right total knee arthroplasty per Dr. Chowdhury. The patient was kept overnight for pain control observation and therapy. He did well without postoperative complaints or complications. Postop day 1 the patient's wound was clean and dry vital signs are stable he was afebrile neurovascularly he was intact calves are benign. His pain was well controlled he was alert oriented x3. Easily did a straight leg raise. Tolerated therapy well prior to discharge. He was to be discharged to home general diet activity as tolerated weightbearing as tolerated with a walker he will have outpatient physical therapy for total knee protocol continue his home medication in addition to the prescribed medications as listed. He was instructed not to use any ice whatsoever on the knee incision due to thinning of his skin and previous multiple surgical incisions. This was explained to him by myself and Dr. Mohr as well. Patient voiced understanding and agreed with the above plan. Time Spent with Patient Time attestation: Total time spent providing and/or coordinating discharge services: Exam Narrative: Vital signs stable afebrile neurovascular intact wound clean and dry calves benign vital signs stable alert oriented x3. Normal mood and affect. Pain well controlled. DS: Data Data Completed and Pending Labs on day of discharge: Labs from last 24 hours 06/24/23 06/23/23 06:29 17:29 WBC 15.5 H RBC 3.99 L Hgb 12.3 L Hct 38.9 L MCV 97.5 MCH 30.8 MCHC 31.6 L RDW 13.3 Plt Count 197 MPV 10.2 Immature Gran % (Auto) Not Reportable Neut % (Auto) Not Reportable Lymph % (Auto) Not Reportable [place] % (Auto) Not Reportable Eos % (Auto) Not Reportable Baso % (Auto) Not Reportable Lymph # (Auto) Not Reportable [place] # (Auto) Not Reportable Eos # (Auto) Not Reportable Baso # (Auto) Not Reportable Abs Immat Gran (auto) Not Reportable Absolute Neuts (auto) Not Reportable Absolute Nucleated RBC Not Reportable Total Counted 100 Neutrophils % (Manual) 87 H Band Neutrophils % 9 H Lymphocytes % (Manual) 2 L Monocytes % (Manual) 2 L Nucleated RBC % Not Reportable Abs Neuts (Manual) 14.88 H Abs Lymphs (Manual) 0.31 L Abs Monocytes (Manual) 0.31 Platelet Estimate Adequate Poikilocytosis 1+ Ovalocytes 1+ Schistocytes None seen Sodium 138 Potassium 4.9 Chloride 105 Carbon Dioxide 26 Anion Gap 7 L BUN 20 Creatinine 0.70 Estim Creat Clear Calc 75 Estimated GFR > 60 Glucose 154 H POC Capillary Glucose 188 H Calcium 8.9 Procedures/Treatments: Right total knee arthroplasty Discharge Plan Discharge Patient Disposition: Home, Self-Care Discharge Instructions: MIRIAM CHOWDHURY M.D [facility], [place] [id number] [place] [id number] POST-OPERATIVE DISCHARGE INSTRUCTIONS TOTAL KNEE ARTHROPLASTY 1. When resting, lie on back with leg elevated above heart to minimize swelling. Significant swelling could indicate a blood clot and if this occurs call the office (or go to the ER) to have a venous ultrasound. 2. Do exercise 5 times a day. 3. Do not sit with leg down except for meals. 4. Wound Care: Nursing will give additional dressings at discharge. Patient to change dressing at home 1 week from surgery, then maintain until seen in office. 5. May shower with dressing in place. 6. Follow weight bearing status instructions. IMPORTANT: Remember not to sit in the chair for more than 30 minutes at a time. As a rule,
[2023-06-24] MEDS: polyethylene glycoL 3350 17 GM POWD.PACK PO (09:31)
[2023-06-24] MEDS: LORATADINE 10 MG TABLET PO (09:31)
[2023-06-24] MEDS: OMEGA 3 POLYUNSAT FATTY ACIDS 1 GM CAP PO (09:31)
[2023-06-24] MEDS: MONTELUKAST SODIUM 10 MG TABLET PO (09:31)
[2023-06-24] MEDS: APIXABAN 2.5 MG TABLET PO (09:31)
[2023-06-24] MEDS: FAMOTIDINE 20 MG TABLET 40 MG PO (09:32)
[2023-06-24] MEDS: MULTIVITAMINS THERAPEUTIC TAB (*BKC) 1 TABLET PO (09:32)
[2023-06-24] MEDS: SENNA/DOCUSATE SODIUM TABLET 2 TAB PO (09:32)
[2023-06-24] MEDS: FLUTICASONE PROPIONATE 0.05% NA SPR 16 GM BTL (*BKC) 1 SPRAY NASAL (09:39)
[2023-06-24] MEDS: VANCOMYCIN 1,000 MG/NS 250 ML 1,000 MG/250 ML BAG 250 MG IVPB (09:39)
--- NOTE | 2023-06-24 11:15 | WPDANESPN ---
Anes - Prog Note Post-Op Date/Time: 06/24/23 11:15 Cardiovascular status: normal Respiratory status: normal Airway patency: baseline Mental status: baseline Post-Op hydration status: normal Vital Signs: Last Vital Signs Temp 37.2 C 06/24/23 08:35 Pulse 83 06/24/23 08:35 Resp 18 06/24/23 08:35 BP 110/69 06/24/23 08:35 Pulse Ox 93 06/24/23 08:35 O2 Del Method Room Air 06/24/23 08:38 O2 Flow Rate 2 06/24/23 08:33 FiO2 28 06/24/23 08:33 Pain Score (VAS): 09/18 I/O: Intake & Output 06/23/23 06/24/23 06/24/23 23:59 07:59 15:59 Intake Total 900 150 240 Balance 900 150 240 Laboratory Tests 06/24/23 06:29 06/24/23 06:29 06/23/23 06/24/23 17:29 06:29 WBC 15.5 H RBC 3.99 L Hgb 12.3 L Hct 38.9 L MCV 97.5 MCH 30.8 MCHC 31.6 L RDW 13.3 Plt Count 197 MPV 10.2 Immature Gran % (Auto) Not Reportable Neut % (Auto) Not Reportable Lymph % (Auto) Not Reportable [place] % (Auto) Not Reportable Eos % (Auto) Not Reportable Baso % (Auto) Not Reportable Lymph # (Auto) Not Reportable [place] # (Auto) Not Reportable Eos # (Auto) Not Reportable Baso # (Auto) Not Reportable Abs Immat Gran (auto) Not Reportable Absolute Neuts (auto) Not Reportable Absolute Nucleated RBC Not Reportable Total Counted 100 Neutrophils % (Manual) 87 H Band Neutrophils % 9 H Lymphocytes % (Manual) 2 L Monocytes % (Manual) 2 L Nucleated RBC % Not Reportable Abs Neuts (Manual) 14.88 H Abs Lymphs (Manual) 0.31 L Abs Monocytes (Manual) 0.31 Platelet Estimate Adequate Poikilocytosis 1+ Ovalocytes 1+ Schistocytes None seen Sodium 138 Potassium 4.9 Chloride 105 Carbon Dioxide 26 Anion Gap 7 L BUN 20 Creatinine 0.70 Estim Creat Clear Calc 75 Estimated GFR > 60 Glucose 154 H POC Capillary Glucose 188 H Calcium 8.9 Post-procedural complaints: none Patient Feedback: Patient satisfied with anesthetic care.
--- NOTE | 2023-06-24 13:48 | PC.NURSE ---
called Dr Chowdhury for update on patients mentation. Informed of patients living situation, that patient is refusing recommendations for Home health at this time. I will reinforce d/c instructions with nephew, d/t patients forgetfulness.
[2023-06-24 13:55] VITALS: BP 108/51; PULSE 75; RESP 18; TEMP 36.4; O2SAT 95
--- NOTE | 2023-06-24 14:05 | PC.NURSE ---
iv out, d/c papers gone over with nephew and patient. denies any questions. all instructions highlighted and starred. all belongings with patient as well as extra mepilex AG for home.
--- NOTE | 2023-06-24 14:52 | PC.NURSE ---
patient out at 1455
== END 2023-06-24 14:50 | disposition home or self-care (01) ==
LOC: ANHSURGERY 09:58 → ANH3MEDSUR 18:17
PROVIDERS: PCP Internal Medicine; Visit Provider Orthopaedic Surgery
PROC: (CPT 27447; principal; 2023-06-23 12:00)
DX: M17.0 Bilateral primary osteoarthritis of knee (principal); F41.9 Anxiety disorder, unspecified; F32.A Depression, unspecified; E78.5 Hyperlipidemia, unspecified; I10 Essential (primary) hypertension; E11.9 Type 2 diabetes mellitus without complications; N40.0 Benign prostatic hyperplasia without lower urinary tract symptoms; E66.9 Obesity, unspecified; Z68.33 Body mass index [BMI] 33.0-33.9, adult; Z79.82 Long term (current) use of aspirin; Z79.84 Long term (current) use of oral hypoglycemic drugs; Z87.891 Personal history of nicotine dependence; Z87.438 Personal history of other diseases of male genital organs; Z80.1 Family history of malignant neoplasm of trachea, bronchus and lung; Z82.49 Family history of ischemic heart disease and other diseases of the circulatory system
CPT/HCPCS: 27447; 20610; 36415; 73560; 80048; 82948; 85025; 94640; 97110; 97116; 97161; 97165; 97530; 97535; A9270; C1713; C1776; J0171; J0690; J1040; J1100; J1170; J1885; J2270; J2371; J2405; J2704; J2795; J3010; J3370; J7030; J7120

== ENCOUNTER 2023-06-26 09:34 | Inpatient (IN) | payer MEDICARE, SELFPAY ==
[2023-06-26] VITALS (9 sets, daily range): BP systolic 117–146; BP diastolic 49–80; PULSE 76–87; RESP 16–20; TEMP 36.9–37.4; O2SAT 91–97; BMI 32.8
--- NOTE | ~2023-06-26 | XR_ITS ---
EXAMINATION: XR knee RT 3V DATE: 06/26/2023 11:08 INDICATION: Right knee pain. TECHNIQUE: 3 views of right knee were obtained. COMPARISON: Right knee radiographs 06/23/2023 FINDINGS: There is a total right knee arthroplasty without patellar resurfacing in near-anatomic alig nment. No fracture. No periprosthetic lucency to suggest loosening or infection. There are osteophyte s of the patella. There is gas and swelling of the soft tissues, consistent with recent surgery. No s ignificant knee joint effusion. IMPRESSION: 1. Total right knee arthroplasty in near-anatomic alignment. Reviewed, dictated and finalized at location A. BURSEMENT ANALYST
--- NOTE | ~2023-06-26 | US_ITS ---
EXAMINATION: US venous doppler LE RT DATE: 06/27/2023 17:19 INDICATION: edema . TECHNIQUE: Grayscale images without and with compression and Doppler images of the right lower extrem ity veins were obtained. COMPARISON: None FINDINGS: The right common femoral vein, profunda (deep) femoral vein, femoral vein, popliteal vein, peroneal v ein, posterior tibial veins, gastrocnemius vein, and greater saphenous vein are patent. IMPRESSION: Patent right lower extremity veins. No evidence of deep venous thrombosis. Reviewed, dictated and finalized at location K. LE WEB APPLICATION DEVELOPER
--- NOTE | 2023-06-26 10:25 | ECG_ITS ---
Measurements Intervals [place] Rate: 84 P: 39 [place]: 167 QRS: -14 QRSD: 110 T: 9 QT: 355 QTc: 422 Interpretive Statements SINUS RHYTHM DELAYED PRECORDIAL R/S TRANSITION BORDERLINE T WAVE ABNORMALITY- INFERIOR LEADS BASELINE ARTIFACT- I, III, AVL BORDERLINE ECG COMPARED TO ECG 08/29/2022 10:39:17 NO SIGNIFICANT CHANGES Electronically Signed On 06-26-2023 16:21:25 TECHNICAL SALES CONSULTANT by Garett Barker D.O.
--- NOTE | 2023-06-26 10:27 | ED.GENADULT ---
HPI - General Adult General Chief complaint: Weakness Stated complaint: WEAK POST SURGERY Time Seen by Provider: 06/26/23 09:44 History of Present Illness HPI narrative: Kan Lawson is an 82 y/o male who presents via EMS from home. His neighbor called for EMS to bring pt as she reports he has been declining since he had his right knee surgery 3 days ago. He has been home for two days and his nephew who lives with him was supposed to take care of him and help him with his PT and he has not. The patient states he has not been able to do his exercises like he should the past two days and he hasn't been eating or drinking which he states he does not have an appetite/ He states that he generally does not feel well and when he asked his nephew to help him / hold him up while walking and his nephew states he can't help. The patient is supposed to start PT out pt on Wednesday and now he cannot make it down the two stairs out of his house to make to therapy and he and his neighbor were hoping to get in to an in pt rehab. Related Data Home Medications Medication Instructions Recorded Confirmed fluticasone propionate 50 1 spray intranasal DAILY 07/18/19 06/23/23 mcg/actuation nasal spray,suspension (Allergy Relief (fluticasone)) lovastatin 40 mg tablet 40 mg PO QPM 07/18/19 06/23/23 aspirin 81 mg tablet,delayed 81 mg PO DAILY 08/21/19 06/23/23 release (Michele Low Dose Aspirin) famotidine 40 mg tablet 40 mg PO BID 08/21/19 06/23/23 duloxetine 60 mg capsule,delayed 60 mg PO QPM 09/05/19 06/23/23 release multivitamin 1 tablet PO DAILY 06/04/22 06/23/23 semaglutide 7 mg tablet (Rybelsus) 7 mg PO QAM 06/04/22 06/23/23 tamsulosin 0.4 mg capsule 0.4 mg PO QPM 06/04/22 06/23/23 vit A 300 mcg-C 200 mg-E 27 1 tablet PO BID 06/04/22 06/23/23 mg-lutein 2 mg and minerals tablet (Eye Health Plus Lutein) fluticasone fur. 100 mcg-umeclid 1 ea inhalation QAM 04/07/23 06/23/23 62.5 mcg-vilant 25 mcg inhalat.powder (Trelegy Ellipta) loratadine 10 mg capsule 10 mg PO DAILY 04/07/23 06/23/23 montelukast 10 mg tablet 10 mg PO DAILY 04/07/23 06/23/23 omega 7-rid-acp-fish oil 1,200 mg 1,200 cap PO BID 04/07/23 06/23/23 (144 mg-216 mg) capsule (Fish Oil) psyllium husk 0.4 gram capsule 0.4 g PO DAILY PRN Constipation 04/07/23 06/23/23 (Daily Fiber) Allergies Allergy/AdvReac Type Severity Reaction Status Date / Time No Known Allergies Allergy Verified 06/26/23 09:48 Review of Systems Review of Systems: CONSTITUTIONAL: Reports feeling generally unwell. EYES: Denies visual changes, redness, or discharge. ENT: Denies rhinorrhea, congestion, sore throat, or otalgia. CARDIOVASCULAR: Denies chest pain, palpitations, or edema. RESPIRATORY: Denies cough or dyspnea. GASTROINTESTINAL: Denies abdominal pain, nausea, vomiting, or diarrhea. GENITOURINARY: Denies dysuria or hematuria. SKIN: Denies rash or itching. MUSCULOSKELETAL: Denies back pain, Reports pain to right knee that might feel worse then normal/ especially with activity NEUROLOGIC: Denies headache, numbness, dizziness, or weakness. PSYCHIATRIC: Denies anxiety or depression. [facility] Past Medical History Medical History (Updated 06/26/23 @ 14:08 by Lesley Calix APRN) Adenomatous colon polyp Anxiety Arthritis BPH (benign prostatic hyperplasia) Depression Hyperlipemia Hypertension Type 2 diabetes mellitus Viral syndrome Surgical History Surgical History History of cataract removal with insertion of prosthetic lens bilateral History of colonoscopy 2016 History of laparoscopic cholecystectomy 2012 S/P ACL repair Status post meniscectomy BL knee medial Family History Family History Father Diabetes mellitus Coronary artery abnormality Mother Anxiety Sibling Lung cancer Social History Social History (Reviewed 06/26/23 @ 10:34 by Lesley Calix, APR
[2023-06-26 10:45] LABS: Basophils Percent Auto 0.4 % (0.2-1.2); Eosinophils Percent Auto 0.2 % (0-4.4); Hematocrit 34.4 % (42.0-52.0); Hemoglobin 11.2 g/dL (14.0-18.0); Immature Granulocyte Absolute 0.07 K/mm3 (0.00-0.031); Immature Granulocyte Percent A 0.6 % (0-0.5); Lymphocytes Percent Auto 12.1 % (18.3-44.2); Mean Corpuscular HGB Conc 32.6 g/dl (32-36); Mean Corpuscular Hemoglobin 31.1 pg (26-34); Mean Corpuscular Volume 95.6 fl (80-100); Mean Platelet Volume 10.4 fl (7.4-10.4); Neutrophils Absolute Auto 8.4 K/mm3 (1.3-6.7); Neutrophils Percent Auto 77.7 % (45.5-73.1); Platelet Count Result 237 k/mm3 (150-375); Red Cell Distribution Width 13.6 % (11.5-14.5); White Blood Count 10.8 K/mm3 (4.5-10.0)
[2023-06-26 10:54] LABS: Magnesium 2.2 mg/dL (1.6-2.3)
[2023-06-26 10:54] LABS: Alanine Aminotransferase 29 U/L (6-50); Albumin Level 3.7 g/dL (3.5-5.1); Alkaline Phosphatase 62 U/L (38-126); Anion Gap 6 mmol/L (8-16); Aspartate Amino Transferase 32 U/L (17-59); Blood Urea Nitrogen 19 mg/dL (9-20); Calcium 9.1 mg/dL (8.4-10.2); Carbon Dioxide 33 mmol/L (22-30); Chloride 99 mmol/L (98-107); Estimated CRCL calculation 72 ml/min; Estimated Glomerular Filt Rate > 60; Glucose 113 mg/dL (65-110); Potassium 4.3 mmol/L (3.4-5.0); Sodium 138 mmol/L (137-145)
[2023-06-26 11:46] LABS: Appearance Urine Cloudy (Clear); Bacteria Urine None Seen /hpf; Bilirubin Urine Negative (Negative); Blood Urine Negative (Negative); Color Urine Yellow (Yellow); Glucose Urine UA Negative (Negative); Hyaline Casts Urine Present /lpf; Ketones Urine 1+ mg/dL (Negative); Leukocyte Esterase Ur Negative LEU/UL (Negative); Nitrate Urine Negative (Negative); Protein Urine Trace mg/dL (Negative); RBC Urine 0-2 /hpf (0-2); Specific Grav Ur 1.013 (1.001-1.035); Squamous Epithelial Cell Urine Occasional /hpf (Few); Urobilinogen Urine 0.2 mg/dL (<2.0); WBC Urine 0-5 /hpf; pH Urine 5.5 (5.0-9.0)
[2023-06-26 12:01] LABS: Add Urine Microscopic? YES
--- NOTE | 2023-06-26 12:56 | PM.IMHP ---
H&P: HPI History of Present Illness Date/Time: 06/26/23 12:56 Chief Complaint: Couldn't get around Narrative: Pt is a 82-year-old male with a recent right knee arthroplasty who presented emergency room for failure to thrive. Patient states that he had a recent surgery and when he went home, he has not improved like he thought he should. He originally thought his nephew was going to be able to help him but his nephew apparently is an alcoholic with cancer and is not available to help him as much as he thought. His neighbor is at bedside and states that the patient was not being taking care of. Pt states his knee hurts very badly when moving or doing his exercises. He states he feels that his leg is swollen and denies sitting in a recliner or a chair since being home. His neighbor also mentions that he has not been eating in a patient states he has been eating but really has not been drinking because he did want to have to get up and go to the bathroom. His last bowel movement was the 14. He has been taking his Eliquis and medication as prescribed. He denies belly pain, fevers, chills, chest pain, shortness of breath nausea or vomiting. Review of Systems Review of Systems: All systems reviewed & are unremarkable except as noted in HPI and below PMFSH Past Medical History Medical History (Updated 06/26/23 @ 16:00 by Joanne Glover PA-C) Adenomatous colon polyp Anxiety Arthritis BPH (benign prostatic hyperplasia) Depression Hyperlipemia Hypertension Type 2 diabetes mellitus Viral syndrome Surgical History Surgical History History of cataract removal with insertion of prosthetic lens bilateral History of colonoscopy 2016 History of laparoscopic cholecystectomy 2013 S/P ACL repair Status post meniscectomy BL knee medial Family History Family History Father Diabetes mellitus Coronary artery abnormality Mother Anxiety Sibling Lung cancer Social History Social History Smoking status: Former smoker Tobacco type: cigars Second hand tobacco smoke exposure: No Smoking end date: 02/06/85 Additional smoking assessment comments: STATES SMOKED SOCIALLY IN COLLEGE, DENIES ALL FORMS OF TOBACCO USE Alcohol intake: current Drinks per week: 2 Substance use: never Substance use type: does not use Lack of Transportation: No Lack of Food: Never True Current Housing: I Have Housing Concerned About Future Housing: Decline to Answer Difficulty Paying Gas/Electric Bills: Decline to Answer Difficulty Paying for Meds: Decline to Answer Currently Unemployed: Decline to Answer Education: Master's Degree or Higher Difficulty w/ Childcare or Family Care: No Living arrangements: alone Occupation/Education: retired Spiritual care concerns: No Meds Home Medications and Allergies Home Medications Medication Instructions Recorded Confirmed Type fluticasone propionate 50 1 spray intranasal DAILY 07/18/19 06/23/23 History mcg/actuation nasal spray,suspension (Allergy Relief (fluticasone)) lovastatin 40 mg tablet 40 mg PO QPM 07/18/19 06/23/23 History aspirin 81 mg tablet,delayed 81 mg PO DAILY 08/21/19 06/23/23 History release (Michele Low Dose Aspirin) famotidine 40 mg tablet 40 mg PO BID 08/21/19 06/23/23 History duloxetine 60 mg capsule,delayed 60 mg PO QPM 09/05/19 06/23/23 History release multivitamin 1 tablet PO DAILY 06/04/22 06/23/23 History semaglutide 7 mg tablet (Rybelsus) 7 mg PO QAM 06/04/22 06/23/23 History tamsulosin 0.4 mg capsule 0.4 mg PO QPM 06/04/22 06/23/23 History vit A 300 mcg-C 200 mg-E 27 1 tablet PO BID 06/04/22 06/23/23 History mg-lutein 2 mg and minerals tablet (Eye Health Plus Lutein) fluticasone fur. 100 mcg-umeclid 1 ea inhalation QAM 04/07/23 06/23/23 Hi
--- NOTE | 2023-06-26 15:45 | PC.NURSE ---
This patient, Kan Lawson, was admitted to [facility] Surg Room 331-02. Patient/family oriented to hospital policies and general routines including ID bracelet, bed and alarms, visiting hours, pain management, procedures, bathroom and other care routines, personal items, smoking policy, room service/diet, and visiting hours. Information on how to activate the Rapid Response Team has been discussed. Patient/Family are encouraged to report perceived risks to care and to ask questions if they do not understand what they are told or what they should do.
[2023-06-26 16:33] LABS: Glucose Point of Care 137 mg/dl (65-105)
[2023-06-26] MEDS: SENNA/DOCUSATE SODIUM TABLET 2 TAB PO (17:32)
[2023-06-26] MEDS: SODIUM CHLORIDE 0.9% IV 1,000 ML 80 ML IV CONT (17:35)
[2023-06-26] MEDS: TAMSULOSIN HCL 0.4 MG CAPSULE PO (18:28)
[2023-06-26] MEDS: OPTI-GEN TAB 1 TABLET PO (18:28)
[2023-06-26] MEDS: LOVASTATIN 20 MG TABLET 40 MG PO (18:28)
[2023-06-26] MEDS: FAMOTIDINE 20 MG TABLET 40 MG PO (18:28)
[2023-06-26] MEDS: ACETAMINOPHEN 500 MG TABLET 1000 MG PO (20:18)
[2023-06-26] MEDS: CEFDINIR 300 MG CAPSULE PO (20:18)
[2023-06-26] MEDS: APIXABAN 2.5 MG TABLET PO (20:18)
[2023-06-27 06:00] VITALS: BP 120/64; PULSE 81; RESP 18; TEMP 36.3; O2SAT 94
[2023-06-27] MEDS: SODIUM CHLORIDE 0.9% IV 1,000 ML 80 ML IV CONT (06:15)
[2023-06-27 06:44] LABS: Hematocrit 34.7 % (42.0-52.0); Mean Corpuscular HGB Conc 31.7 g/dl (32-36); Mean Corpuscular Hemoglobin 30.6 pg (26-34); Mean Corpuscular Volume 96.7 fl (80-100); Mean Platelet Volume 10.3 fl (7.4-10.4); Platelet Count Result 268 k/mm3 (150-375); Red Blood Count 3.59 M/mm3 (4.6-6.20); Red Cell Distribution Width 13.8 % (11.5-14.5); White Blood Count 9.5 K/mm3 (4.5-10.0)
[2023-06-27 06:59] LABS: Anion Gap 7 mmol/L (8-16); Blood Urea Nitrogen 25 mg/dL (9-20); Calcium 8.9 mg/dL (8.4-10.2); Carbon Dioxide 31 mmol/L (22-30); Chloride 101 mmol/L (98-107); Estimated CRCL calculation 80 ml/min; Estimated Glomerular Filt Rate > 60; Glucose 127 mg/dL (65-110); Potassium 4.1 mmol/L (3.4-5.0); Sodium 139 mmol/L (137-145)
[2023-06-27 08:09] LABS: Glucose Point of Care 123 mg/dl (65-105)
[2023-06-27] MEDS: APIXABAN 2.5 MG TABLET PO ×2 (08:24→21:00)
[2023-06-27] MEDS: ACETAMINOPHEN 500 MG TABLET 1000 MG PO ×2 (08:24→13:52)
[2023-06-27] MEDS: LORATADINE 10 MG TABLET PO (08:24)
[2023-06-27] MEDS: DULoxetine HCL 60 MG CAPSULE.DR PO (08:24)
[2023-06-27] MEDS: CELECOXIB 100 MG CAPSULE PO (08:24)
[2023-06-27] MEDS: MONTELUKAST SODIUM 10 MG TABLET PO (08:24)
[2023-06-27] MEDS: SENNA/DOCUSATE SODIUM TABLET 2 TAB PO ×2 (08:24→17:10)
[2023-06-27] MEDS: OPTI-GEN TAB 1 TABLET PO ×2 (08:24→17:10)
[2023-06-27] MEDS: CEFDINIR 300 MG CAPSULE PO ×2 (08:24→21:00)
[2023-06-27] MEDS: FAMOTIDINE 20 MG TABLET 40 MG PO ×2 (08:24→17:10)
[2023-06-27] MEDS: FLUTICASONE PROPIONATE 0.05% NA SPR 16 GM BTL (*BKC) 1 SPRAY NASAL (08:25)
[2023-06-27] MEDS: FLUTICASONE/UMECLIDIN/VILANTER 100-62.5-25 MCG ELLIPTA 1 PUFF INHALATION (08:44)
[2023-06-27 08:45] VITALS: O2SAT 93
--- NOTE | 2023-06-27 08:57 | PM.IMPN ---
Progress Note: A&P Assessment and Plan (1) Adult failure to thrive: Code(s): R62.7 - Adult failure to thrive Status: Acute (2) Weakness: Code(s): R53.1 - Weakness Status: Acute (3) Post-op pain: Code(s): G89.18 - Other acute postprocedural pain Status: Acute (4) Total knee replacement status: Code(s): Z96.659 - Presence of unspecified artificial knee joint Status: Acute Plan 82M w/ PMH anxiety, DJD, BPH, depression, HLD, HTN, NIDDM, JAZMYN, anemia, w/ R TKA on 06/23 presents on 06/26 with weakness and inability to ambulate 2/2 pain. Admitted for placement and therapy. 1) weakness, pain R knee, TKA on 06/23 - improved. ortho and PT consulted.- - no evidence of infection, leukocytosis resolved. entire R leg significantly swollen, ordered doppler FEN: SLIV, cardiac diabetic diet GI prophylaxis: not indicated DVT prophylaxis: eliquis Lines: pIV Code Status: Full Code Dispo: stable. PT consulted, pending placement More than 25 minutes spent on chart review, patient interaction and assessment and plan. Subjective Date/time seen: 06/27/23 08:57 Interval history: NAOE. pt currently denies any pain at the leg. he reports swelling started 2 days prior. denies fever Review of Systems Review of Systems: All systems reviewed & are unremarkable except as noted in HPI and below Exam Const: General: comfortable and no acute distress Eyes: Pupils: Equal, round and reactive pupils present Neck: Neck: supple Resp: Effort & Inspection: normal respiratory effort Auscultation: clear to auscultation bilaterally Cardio: Rate: regular rate Rhythm: regular rhythm Heart sounds: no gallops, no murmurs and no rubs GI: Inspection: non-distended GI Palp: Yes Soft to palpation and No Tenderness to palpation present (GI) Auscultation: normal bowel sounds Extrem: General: edema (RLE from ankle to groin, 2-3+ pitting edema. no erythema or TTP. ) Other: vertical incision scar intact, no drainage Objective Data Vital Signs Vital Signs: Vital Signs - 24 hr 06/26/23 09:35 06/26/23 11:00 06/26/23 10:30 Temperature 98.4 F Pulse Rate 80 77 77 Respiratory Rate 16 20 16 Blood Pressure 117/66 140/49 L 142/52 H Pulse Oximetry 95 96 97 Oxygen Delivery Room Air 06/26/23 13:00 06/26/23 12:00 06/26/23 14:00 Temperature Pulse Rate 79 80 80 Respiratory Rate 16 16 16 Blood Pressure 129/65 146/80 H 139/66 Pulse Oximetry 97 97 94 Oxygen Delivery 06/26/23 15:30 06/26/23 15:50 06/26/23 15:45 Temperature 99.2 F Pulse Rate 76 78 Respiratory Rate 16 18 Blood Pressure 139/69 145/69 H Pulse Oximetry 95 93 Oxygen Delivery Room Air 06/26/23 21:53 06/26/23 20:00 06/27/23 06:00 Temperature 99.4 F 97.4 F L Pulse Rate 87 81 Respiratory Rate 18 18 Blood Pressure 131/60 120/64 Pulse Oximetry 91 94 Oxygen Delivery Room Air 06/27/23 08:45 Temperature Pulse Rate Respiratory Rate Blood Pressure Pulse Oximetry 93 Oxygen Delivery Room Air Intake/Output Intake/Output: Intake & Output 06/24/23 06/25/23 06/26/23 06/27/23 23:59 23:59 23:59 23:59 Intake Total 240 1050 Balance 240 1050 Meds/Results Medications: Active Medications Generic Name Dose Route Start Last Admin Trade Name Alonzoq PRN Reason Stop Dose Admin Acetaminophen 1,000 mg 06/26/23 13:40 06/27/23 08:24 Acetaminophen 500 Mg Tablet PO 1,000 mg Q6H MELANIE Administration Apixaban 2.5 mg 06/26/23 21:00 06/27/23 08:24 Apixaban 2.5 Mg Tablet PO 2.5 mg Q12HR MELANIE Administration Aspirin 81 mg 07/08/23 09:00 Aspirin 81 Mg Enteric Tablet PO BID MELANIE Cefdinir 300 mg 06/26/23 21:00 06/27/23 08:24 Cefdinir 300 Mg Capsule PO 07/03/23 20:59 300 mg Q12HR MELANIE Administration Celecoxib 100 mg 06/27/23 08:00 06/27/23 08:24 Celecoxib 100 Mg Capsule PO 100 mg DAILY@0800 MELANIE Administration Dextrose 12.5 gm 06/26/23 15:59 D
[2023-06-27 11:32] LABS: Glucose Point of Care 125 mg/dl (65-105)
[2023-06-27 14:00] VITALS: BP 101/61; PULSE 85; RESP 18; TEMP 36.4; O2SAT 92
[2023-06-27 16:57] LABS: Glucose Point of Care 153 mg/dl (65-105)
[2023-06-27] MEDS: TAMSULOSIN HCL 0.4 MG CAPSULE PO (17:12)
[2023-06-27] MEDS: LOVASTATIN 20 MG TABLET 40 MG PO (17:12)
[2023-06-27 21:00] LABS: Glucose Point of Care 120 mg/dl (65-105)
[2023-06-27 22:00] VITALS: BP 134/66; PULSE 77; RESP 18; TEMP 36.5; O2SAT 90
[2023-06-27 22:45] VITALS: PULSE 78; O2SAT 97
[2023-06-28 06:00] VITALS: BP 142/78; PULSE 73; RESP 18; TEMP 36.3; O2SAT 93
--- NOTE | 2023-06-28 07:32 | PM.PNORT ---
Progress Note: A&P Assessment and Plan (1) Weakness: Code(s): R53.1 - Weakness Status: Acute Plan Patient is postoperative day 5 after total knee arthroplasty right knee. He was discharged the day after surgery with a plan that his nephew would take care of him. We tried to arrange for home health care but he was adamant in his refusal to allow someone to come to the home and he was alert and oriented and discharged under the care of his nephew. Unfortunately his nephew with a history of alcoholism relapsed and started drinking and it was clear that his nephew could not provide any assistance and some assistance was needed and therefore he was brought back to the emergency room the morning of Wednesday day before yesterday and was admitted for placement into a rehabilitation center while he recovers. Today his incision is fine he does have diffuse 1+ edema in the knee calf and ankle on the right 1st thing in the morning this morning and a venous duplex ultrasound has been ordered for today. The is on Eliquis for DVT prophylaxis. He has no swelling in the left leg to suggest systemic edema. He states he is not having any pain the moves his leg around quite easily without discomfort. He does have the he felt heel lift under the left heel due to the fact that he has a flexion contracture on the left and we have straightened out his flexion contracture and varus deformity on the right which lengthens the right leg relative to the length the left leg. We are avoiding ice because he has had a previous oblique incision in the front of the knee and ice could impair the circulation to that incision. He is alert and oriented to the month year and day of the week. He is agreeable to being discharged to a rehab facility for a period of time until he is more independent since he will not have any help at home. He is scheduled to see me in the office I believe week from today. His current order should be continued. He is on 100 mg Celebrex daily for pain control p.r.n. 2.5 oxycodone. Schedule Tylenol MiraLax and Senokot to arcus 8, and cefdinir for 10 days postop because of his diabetes for prophylaxis against infection. His baby aspirin is on hold as he was found not to have any significant coronary artery disease and that will be resumed once is Eliquis has been completed. We will want him to take 81 mg twice daily for DVT prophylaxis once he Eliquis is completed. These recommendations of course assume that his venous duplex ultrasound today will be negative. Subjective Subjective Date/Time Seen: 06/28/23 07:32 Objective Data Vital Signs Vital Signs: Vital Signs - 24 hr 06/27/23 08:45 06/27/23 08:25 06/27/23 12:54 Temperature Pulse Rate Respiratory Rate Blood Pressure Pulse Oximetry 93 Oxygen Delivery Room Air Room Air Room Air 06/27/23 13:15 06/27/23 14:00 06/27/23 22:00 Temperature 36.4 C L 36.5 C Pulse Rate 85 77 Respiratory Rate 18 18 Blood Pressure 101/61 134/66 Pulse Oximetry 92 90 Oxygen Delivery Room Air 06/27/23 22:45 06/28/23 06:00 Temperature 36.3 C L Pulse Rate 78 73 Respiratory Rate 18 Blood Pressure 142/78 H Pulse Oximetry 97 93 Oxygen Delivery Intake/Output Intake/Output: Intake & Output 06/25/23 06/26/23 06/27/23 06/28/23 23:59 23:59 23:59 23:59 Intake Total 240 1410 200 Balance 240 1410 200 Meds/Results Medications: Active Medications Generic Name Dose Route Start Last Admin Trade Name Freq PRN Reason Stop Dose Admin Acetaminophen 1,000 mg 06/26/23 13:40 06/28/23 01:40 Acetaminophen 500 Mg Tablet PO Not Given Q6H MELANIE Apixaban 2.5 mg 06/26/23 21:00 06/27/23 21:00 Apixaban 2.5 Mg Tablet PO 2.5 mg Q12HR MELANIE Administration Aspirin 81 mg 07/08/23 09:00 Aspirin 81 Mg Enteric Tablet PO BID MELANIE Cefdinir 300 mg 06/26/23 21:00 06/27/23 21:00 Cefdinir 300 Mg Capsule PO 07/03/23 20:59 300 mg Q12HR
[2023-06-28 07:44] LABS: Glucose Point of Care 113 mg/dl (65-105)
[2023-06-28 07:52] LABS: Basophils Percent Auto 0.3 % (0.2-1.2); Eosinophils Absolute Auto 0.3 K/mm3 (0-0.3); Eosinophils Percent Auto 3.8 % (0-4.4); Hematocrit 34.3 % (42.0-52.0); Hemoglobin 10.9 g/dL (14.0-18.0); Immature Granulocyte Absolute 0.06 K/mm3 (0.00-0.031); Immature Granulocyte Percent A 0.8 % (0-0.5); Lymphocytes Absolute Auto 1.03 K/mm3 (0.9-3.2); Lymphocytes Percent Auto 13.1 % (18.3-44.2); Mean Corpuscular HGB Conc 31.8 g/dl (32-36); Mean Corpuscular Hemoglobin 30.7 pg (26-34); Mean Corpuscular Volume 96.6 fl (80-100); Mean Platelet Volume 9.9 fl (7.4-10.4); Monocytes Absolute Auto 0.7 K/mm3 (0.1-0.6); Neutrophils Absolute Auto 5.8 K/mm3 (1.3-6.7); Platelet Count Result 286 k/mm3 (150-375); Red Blood Count 3.55 M/mm3 (4.6-6.20); Red Cell Distribution Width 13.8 % (11.5-14.5); White Blood Count 7.9 K/mm3 (4.5-10.0)
[2023-06-28] MEDS: FAMOTIDINE 20 MG TABLET 40 MG PO ×2 (08:46→17:07)
[2023-06-28] MEDS: ACETAMINOPHEN 500 MG TABLET 1000 MG PO ×2 (08:46→20:41)
[2023-06-28] MEDS: SENNA/DOCUSATE SODIUM TABLET 2 TAB PO ×2 (08:47→17:07)
[2023-06-28] MEDS: MONTELUKAST SODIUM 10 MG TABLET PO (08:47)
[2023-06-28] MEDS: CELECOXIB 100 MG CAPSULE PO (08:47)
[2023-06-28] MEDS: DULoxetine HCL 60 MG CAPSULE.DR PO (08:47)
[2023-06-28] MEDS: APIXABAN 2.5 MG TABLET PO ×2 (08:47→20:41)
[2023-06-28] MEDS: LORATADINE 10 MG TABLET PO (08:47)
[2023-06-28] MEDS: CEFDINIR 300 MG CAPSULE PO ×2 (08:47→20:41)
[2023-06-28] MEDS: FLUTICASONE PROPIONATE 0.05% NA SPR 16 GM BTL (*BKC) 1 SPRAY NASAL (08:48)
[2023-06-28] MEDS: OPTI-GEN TAB 1 TABLET PO ×2 (08:50→17:07)
--- NOTE | 2023-06-28 10:49 | PM.IMPN ---
Progress Note: A&P Assessment and Plan (1) Adult failure to thrive: Code(s): R62.7 - Adult failure to thrive Status: Acute (2) Weakness: Code(s): R53.1 - Weakness Status: Acute (3) Post-op pain: Code(s): G89.18 - Other acute postprocedural pain Status: Acute Plan 82M w/ PMH anxiety, DJD, BPH, depression, HLD, HTN, NIDDM, JAZMYN, anemia, w/ R TKA on 06/23 presents on 06/26 with weakness and inability to ambulate 2/2 pain. Admitted for placement and therapy. 1) weakness, pain R knee, TKA on 06/23 - originally return home after R TKA on 06/23 as he refused home health, returned as his nephew could not help care for him. pain is now improved. ortho and PT consulted. appreciate ortho recs. pending placement - no evidence of infection, leukocytosis resolved. entire R leg significantly swollen, doppler neg for DVT - 06/28, RLE edema much better, 1+ now, likely as a result of immobility and edema s/p surgery - ortho plans to use Eliquis, then aspirin bid, then he can return to his daily aspirin use. time spent counseling patient on the benefits of therapy and staying mobilized. he is enthusiastic to participate with therapy all other chronic medical conditions stable. cont usual medications. FEN: SLIV, cardiac diabetic diet GI prophylaxis: not indicated DVT prophylaxis: eliquis Lines: pIV Code Status: Full Code Dispo: stable. PT consulted, pending placement More than 35 minutes spent on chart review, patient interaction and assessment and plan. Subjective Date/time seen: 06/28/23 10:49 Interval history: NAOE. pt is in good spirits and he is amenable to SNF for short stay for rehab. he denies pain currently as he lays flat in bed. Review of Systems Review of Systems: All systems reviewed & are unremarkable except as noted in HPI and below Exam Const: General: comfortable and no acute distress Eyes: Pupils: Equal, round and reactive pupils present Neck: Neck: supple Resp: Effort & Inspection: normal respiratory effort Auscultation: clear to auscultation bilaterally Cardio: Rate: regular rate Rhythm: regular rhythm Heart sounds: no gallops, no murmurs and no rubs GI: Inspection: non-distended GI Palp: Yes Soft to palpation and No Tenderness to palpation present (GI) Auscultation: normal bowel sounds Extrem: General: edema (1+ pitting edema of RLE from ankle to groin, this is improved.) Objective Data Vital Signs Vital Signs: Vital Signs - 24 hr 06/27/23 12:54 06/27/23 13:15 06/27/23 14:00 Temperature 97.5 F L Pulse Rate 85 Respiratory Rate 18 Blood Pressure 101/61 Pulse Oximetry 92 Oxygen Delivery Room Air Room Air 06/27/23 22:00 06/27/23 22:45 06/28/23 06:00 Temperature 97.7 F 97.4 F L Pulse Rate 77 78 73 Respiratory Rate 18 18 Blood Pressure 134/66 142/78 H Pulse Oximetry 90 97 93 Oxygen Delivery Intake/Output Intake/Output: Intake & Output 06/25/23 06/26/23 06/27/23 06/28/23 23:59 23:59 23:59 23:59 Intake Total 240 1410 440 Balance 240 1410 440 Meds/Results Medications: Active Medications Generic Name Dose Route Start Last Admin Trade Name Freq PRN Reason Stop Dose Admin Acetaminophen 1,000 mg 06/26/23 13:40 06/28/23 08:46 Acetaminophen 500 Mg Tablet PO 1,000 mg Q6H MELANIE Administration Apixaban 2.5 mg 06/26/23 21:00 06/28/23 08:47 Apixaban 2.5 Mg Tablet PO 2.5 mg Q12HR MELANIE Administration Aspirin 81 mg 07/08/23 09:00 Aspirin 81 Mg Enteric Tablet PO BID MELANIE Cefdinir 300 mg 06/26/23 21:00 06/28/23 08:47 Cefdinir 300 Mg Capsule PO 07/03/23 20:59 300 mg Q12HR MELANIE Administration Celecoxib 100 mg 06/27/23 08:00 06/28/23 08:47 Celecoxib 100 Mg Capsule PO 100 mg DAILY@0800 MELANIE Administration Dextrose 12.5 gm 06/26/23 15:59 Dextrose 50% 25 Gm/50 Ml Syringe IV PUSH PRN PRN Hypoglycemia Protocol Duloxetine HCl 60 mg 06/27/23 09:00 06/28/23 0
[2023-06-28] MEDS: FLUTICASONE/UMECLIDIN/VILANTER 100-62.5-25 MCG ELLIPTA 1 PUFF INHALATION (11:19)
[2023-06-28 11:20] VITALS: O2SAT 92
[2023-06-28 11:32] LABS: Glucose Point of Care 129 mg/dl (65-105)
[2023-06-28] MEDS: polyethylene glycoL 3350 17 GM POWD.PACK PO (12:32)
[2023-06-28 14:00] VITALS: BP 112/46; PULSE 79; RESP 16; TEMP 36.4; O2SAT 92
[2023-06-28 16:37] LABS: Glucose Point of Care 126 mg/dl (65-105)
[2023-06-28] MEDS: TAMSULOSIN HCL 0.4 MG CAPSULE PO (17:12)
[2023-06-28] MEDS: LOVASTATIN 20 MG TABLET 40 MG PO (17:12)
[2023-06-28 21:30] LABS: Glucose Point of Care 120 mg/dl (65-105)
[2023-06-28 22:00] VITALS: BP 115/62; PULSE 71; RESP 18; TEMP 36.6; O2SAT 96
[2023-06-28 22:47] VITALS: PULSE 75; O2SAT 98
[2023-06-29 06:00] VITALS: BP 119/63; PULSE 72; RESP 14; TEMP 36.6; O2SAT 92
[2023-06-29 08:06] LABS: Glucose Point of Care 114 mg/dl (65-105)
[2023-06-29] MEDS: FAMOTIDINE 20 MG TABLET 40 MG PO ×2 (08:56→16:48)
[2023-06-29] MEDS: MONTELUKAST SODIUM 10 MG TABLET PO (08:56)
[2023-06-29] MEDS: LORATADINE 10 MG TABLET PO (08:56)
[2023-06-29] MEDS: CELECOXIB 100 MG CAPSULE PO (08:56)
[2023-06-29] MEDS: CEFDINIR 300 MG CAPSULE PO ×2 (08:56→21:20)
[2023-06-29] MEDS: OPTI-GEN TAB 1 TABLET PO ×2 (08:56→16:49)
[2023-06-29] MEDS: DULoxetine HCL 60 MG CAPSULE.DR PO (08:56)
[2023-06-29] MEDS: APIXABAN 2.5 MG TABLET PO ×2 (08:56→21:20)
[2023-06-29] MEDS: FLUTICASONE PROPIONATE 0.05% NA SPR 16 GM BTL (*BKC) 1 SPRAY NASAL (08:57)
[2023-06-29] MEDS: SENNA/DOCUSATE SODIUM TABLET 2 TAB PO ×2 (08:59→16:48)
[2023-06-29] MEDS: ACETAMINOPHEN 500 MG TABLET 1000 MG PO ×3 (08:59→21:20)
[2023-06-29] MEDS: FLUTICASONE/UMECLIDIN/VILANTER 100-62.5-25 MCG ELLIPTA 1 PUFF INHALATION (09:59)
[2023-06-29 11:48] LABS: Glucose Point of Care 125 mg/dl (65-105)
[2023-06-29 14:00] VITALS: BP 126/51; PULSE 76; RESP 20; TEMP 36.1; O2SAT 92
[2023-06-29 16:52] LABS: Glucose Point of Care 108 mg/dl (65-105)
--- NOTE | 2023-06-29 18:45 | PM.IMPN ---
Progress Note: A&P Assessment and Plan (1) Adult failure to thrive: Code(s): R62.7 - Adult failure to thrive Status: Acute (2) Weakness: Code(s): R53.1 - Weakness Status: Acute (3) Post-op pain: Code(s): G89.18 - Other acute postprocedural pain Status: Acute (4) Generalized weakness: Code(s): R53.1 - Weakness Status: Acute (5) Failure of outpatient treatment: Code(s): Z78.9 - Other specified health status Status: Acute (6) Total knee replacement status: Code(s): Z96.659 - Presence of unspecified artificial knee joint Status: Acute (7) Obesity: Code(s): E66.9 - Obesity, unspecified Status: Acute (8) Hypertension: Code(s): I10 - Essential (primary) hypertension Status: Acute (9) Hyperlipemia: Code(s): E78.5 - Hyperlipidemia, unspecified Status: Acute Plan 82M w/ PMH anxiety, DJD, BPH, depression, HLD, HTN, NIDDM, JAZMYN, anemia, w/ R TKA on 06/23 presents on 06/26 with weakness and inability to ambulate 2/2 pain. Admitted for placement and therapy. 1) weakness, pain R knee, TKA on 06/23 - originally return home after R TKA on 06/23 as he refused home health, returned as his nephew could not help care for him. pain is now improved. ortho and PT consulted. appreciate ortho recs. pending placement - no evidence of infection, leukocytosis resolved. entire R leg significantly swollen, doppler neg for DVT - 06/28, RLE edema much better, 1+ now, likely as a result of immobility and edema s/p surgery - ortho plans to use Eliquis, then aspirin bid, then he can return to his daily aspirin use. - care coordination in the process of arranging placement for the patient. all other chronic medical conditions stable. cont usual medications. FEN: SLIV, cardiac diabetic diet GI prophylaxis: not indicated DVT prophylaxis: eliquis Lines: pIV Code Status: Full Code Dispo: stable. PT consulted, pending placement. ? Patient seen and examined at bedside during my morning rounds ? Collaborated with patient's nurse at the bedside in detail and addressed all concerns ? Labs, electrolytes, radiology, investigations and test results reviewed ? Consult/Nursing/Ancilliary notes on the chart reviewed and appreciated ? Spoke with patient/family at the bedside and answered all the questions that they had Repeat labs in a.m. Electrolyte replacement as per protocol. Patient will be monitored very closely on the floor. Further recommendations as per the hospital course. Time Spent With Patient Time with patient: 25 - 35 minutes Subjective Date/time seen: 06/29/23 18:45 Interval history: Patient sitting in chair at the bedside during my morning rounds, speaking with his friend. No major issues at this time. Awaiting placement in half-way facility. Review of Systems Review of Systems: he denies any chest pain, palpitations, fever rigor chills, nausea vomiting, dizziness loss of consciousness All systems reviewed & are unremarkable except as noted in HPI and below Exam Narrative: PHYSICAL EXAMINATION: Vital signs: Please see the chart General physical exam: pleasant, cooperative, in no acute distress Head/eyes: Atraumatic, EOMI, PERRLA ENT: Moist mucous membranes, nasal passages clear Neck: Supple, full range of motion, trachea midline CVS: S1 + S2, regular rate and rhythm, no murmurs Respiratory: Bilaterally fair air entry in both lung hill, mild B/L crackles, symmetric chest expansion, no distress Abdomen: Soft, non-tender, bowel sounds +ve, no organomegaly Extremities: No clubbing, no cyanosis, no edema, no calf tenderness Musculoskeletal: ++ right lower extremity pitting edema from ankle to groin, adequate range of motion, no muscle spasms Skin: Warm, dry, no jaundice, no cyanosis Neurological: Awake, alert, oriented x 3, cranial nerves II-XII intact, no focal neurological deficits Psychiatric: Normal mood, non suici
[2023-06-29] MEDS: LOVASTATIN 20 MG TABLET 40 MG PO (19:31)
[2023-06-29] MEDS: TAMSULOSIN HCL 0.4 MG CAPSULE PO (19:31)
[2023-06-29 20:51] LABS: Glucose Point of Care 122 mg/dl (65-105)
[2023-06-29 21:00] VITALS: PULSE 77; O2SAT 93
[2023-06-29 21:55] VITALS: BP 138/67; PULSE 73; RESP 18; TEMP 36.6; O2SAT 93
[2023-06-30 06:00] VITALS: BP 115/74; PULSE 71; RESP 18; TEMP 36.1; O2SAT 94
[2023-06-30 06:23] LABS: Hematocrit 32.1 % (42.0-52.0); Mean Corpuscular HGB Conc 31.2 g/dl (32-36); Mean Corpuscular Hemoglobin 30.6 pg (26-34); Mean Corpuscular Volume 98.2 fl (80-100); Mean Platelet Volume 9.9 fl (7.4-10.4); Platelet Count Result 297 k/mm3 (150-375); Red Blood Count 3.27 M/mm3 (4.6-6.20); Red Cell Distribution Width 13.9 % (11.5-14.5); White Blood Count 7.7 K/mm3 (4.5-10.0)
[2023-06-30 06:31] LABS: Anion Gap 7 mmol/L (8-16); Blood Urea Nitrogen 24 mg/dL (9-20); Calcium 9.2 mg/dL (8.4-10.2); Carbon Dioxide 33 mmol/L (22-30); Chloride 102 mmol/L (98-107); Estimated CRCL calculation 70 ml/min; Estimated Glomerular Filt Rate > 60; Glucose 110 mg/dL (65-110); Sodium 142 mmol/L (137-145)
[2023-06-30 08:02] LABS: Glucose Point of Care 104 mg/dl (65-105)
[2023-06-30] MEDS: ACETAMINOPHEN 500 MG TABLET 1000 MG PO ×2 (08:23→12:43)
[2023-06-30] MEDS: CELECOXIB 100 MG CAPSULE PO (08:24)
[2023-06-30] MEDS: MONTELUKAST SODIUM 10 MG TABLET PO (08:25)
[2023-06-30] MEDS: SENNA/DOCUSATE SODIUM TABLET 2 TAB PO (08:25)
[2023-06-30] MEDS: OPTI-GEN TAB 1 TABLET PO (08:25)
[2023-06-30] MEDS: CEFDINIR 300 MG CAPSULE PO (08:26)
[2023-06-30] MEDS: FAMOTIDINE 20 MG TABLET 40 MG PO (08:27)
[2023-06-30] MEDS: DULoxetine HCL 60 MG CAPSULE.DR PO (08:27)
[2023-06-30] MEDS: APIXABAN 2.5 MG TABLET PO (08:28)
[2023-06-30] MEDS: LORATADINE 10 MG TABLET PO (08:28)
[2023-06-30] MEDS: FLUTICASONE PROPIONATE 0.05% NA SPR 16 GM BTL (*BKC) 1 SPRAY NASAL (08:29)
[2023-06-30] MEDS: FLUTICASONE/UMECLIDIN/VILANTER 100-62.5-25 MCG ELLIPTA 1 PUFF INHALATION (09:16)
[2023-06-30 09:17] VITALS: O2SAT 94
[2023-06-30 11:35] LABS: Glucose Point of Care 119 mg/dl (65-105)
--- NOTE | 2023-06-30 12:56 | PM.DS ---
DS: Admitting Diagnosis Discharge Date 06/30/23 Admitting Diagnosis failure to thrive DS: Discharge Diagnosis Discharge Diagnosis (1) Adult failure to thrive: Code(s): R62.7 - Adult failure to thrive Status: Acute Assessment and Plan: no evidence of infection, leukocytosis resolved. due to lack of help at home with previous d/c after RTKA (2) Weakness: Code(s): R53.1 - Weakness Status: Acute Assessment and Plan: d/c to [facility] (3) Post-op pain: Code(s): G89.18 - Other acute postprocedural pain Status: Resolved Assessment and Plan: entire R leg significantly swollen, doppler neg for DVT swelling improved with PT (4) Generalized weakness: Code(s): R53.1 - Weakness Status: Acute Assessment and Plan: d/c to [facility] (5) Failure of outpatient treatment: Code(s): Z78.9 - Other specified health status Status: Acute Assessment and Plan: originally returned home after R TKA on 06/23 as he refused home health, returned as his nephew could not help care for him. placement at [facility] today at d/c (6) Total knee replacement status: Code(s): Z96.659 - Presence of unspecified artificial knee joint Status: Acute Assessment and Plan: entire R leg significantly swollen, doppler neg for DVT swelling improved with PT ortho plans to use Eliquis, then aspirin bid, then he can return to his daily aspirin use. CEFDINER will continue at 300 mg twice daily to finish on p.m. July 03 to complete 10 day course as prophylaxis because of his diabetes Plan DS: Summary Hospital Course Hospital Course: Pt is a 82 YO male with a recent right knee arthroplasty admitted from ER for failure to thrive. Patient stated that he had a recent surgery and when he went home, he has not improved like he thought he should. He originally thought his nephew was going to be able to help him but his nephew apparently is an alcoholic with cancer and is not available to help him as much as he thought. His neighbor is at bedside and states that the patient was not being taking care of. Pt states his knee hurts very badly when moving or doing his exercises. e states he feels that his leg is swollen and denies sitting in a recliner or a chair since being home. His neighbor also mentions that he has not been eating in a patient states he has been eating but really has not been drinking because he did want to have to get up and go to the bathroom. He has been taking his Eliquis and medication as prescribed. He denies belly pain, fevers, chills, chest pain, shortness of breath nausea or vomiting. His movement and swelling have improved with PT here and is stable for d/c to [facility] today. He will follow up with Ortho in 1 week and discharge instructions per ortho have been ordered for DVT. Status at Discharge Functional status at discharge: uses cane/walker Overall status at discharge: patient is progressing back to baseline Time Spent with Patient Time attestation: Total time spent providing and/or coordinating discharge services: Exam Narrative: General: pleasant, cooperative, in no acute distress Head/eyes: Atraumatic, EOMI, PERRLA ENT: Moist mucous membranes, nasal passages clear Neck: Supple, full range of motion, trachea midline CVS: RRR, no murmurs Respiratory: lungs clear to ausculation, symmetric chest expansion, no distress Abdomen: Soft, non-tender, bowel sounds present and active Extremities: No clubbing, no cyanosis, no edema, no calf tenderness Musculoskeletal: ++ right lower extremity pitting edema from ankle to groin, adequate range of motion, no muscle spasms Skin: Warm, dry, no jaundice, no cyanosis Neurological: Awake, alert, oriented x 3, no focal neurological deficits Psychiatric: Normal mood and affect, non suicidal DS: Data Data Completed and Pending Labs on day of discharge:
[2023-06-30 14:00] VITALS: BP 123/56; PULSE 65; RESP 18; TEMP 37.1; O2SAT 93
== END 2023-06-30 15:10 | DRG 948 ==
LOC: ANHED 14:08 → ANH3MEDSUR 14:55
PROVIDERS: Family Medicine; General Practice; Physician Assistant; Admitting Provider Internal Medicine; Emergency Provider Nurse Practitioner Family; PCP Internal Medicine; Visit Provider Nurse Practitioner
DX: R62.7 Adult failure to thrive; G89.18 Other acute postprocedural pain; R60.9 Edema, unspecified; Z96.651 Presence of right artificial knee joint; D72.829 Elevated white blood cell count, unspecified; D64.9 Anemia, unspecified; E86.0 Dehydration; E11.9 Type 2 diabetes mellitus without complications; E78.5 Hyperlipidemia, unspecified; F41.9 Anxiety disorder, unspecified; G47.33 Obstructive sleep apnea (adult) (pediatric); I10 Essential (primary) hypertension; M19.90 Unspecified osteoarthritis, unspecified site; N40.0 Benign prostatic hyperplasia without lower urinary tract symptoms; Z23 Encounter for immunization; Z68.32 Body mass index [BMI] 32.0-32.9, adult; Z99.89 Dependence on other enabling machines and devices; Z79.01 Long term (current) use of anticoagulants; Z79.82 Long term (current) use of aspirin; Z98.42 Cataract extraction status, left eye; Z98.41 Cataract extraction status, right eye; Z96.1 Presence of intraocular lens; Z90.49 Acquired absence of other specified parts of digestive tract; Z87.891 Personal history of nicotine dependence; Z79.85 Long-term (current) use of injectable non-insulin antidiabetic drugs
CPT/HCPCS: 36415; 73560; 73562; 80048; 80053; 81001; 82948; 83735; 85025; 85027; 90471; 90694; 93005; 93971; 94640; 96360; 96361; 97110; 97116; 97161; 97165; 97530; 97535; 99285; A9270; C1713; C1776; G0008; G0378; J0171; J0690; J1040; J1100; J1170; J1885; J2270; J2371; J2405; J2704; J2795; J3370; J7030; J7120

== ENCOUNTER 2023-07-08 15:51 | Inpatient (IN) | payer MEDICARE, SELFPAY ==
[2023-07-08] VITALS (12 sets, daily range): BP systolic 120–176; BP diastolic 53–77; PULSE 70–99; RESP 16–23; TEMP 36.8; O2SAT 88–97
--- NOTE | ~2023-07-08 | US_ITS ---
EXAMINATION:US venous doppler LE BI INDICATION:Leg swelling TECHNIQUE: Multiple grayscale, color flow and Doppler images of the right and left lower extremity de ep venous systems were obtained and reviewed. COMPARISON:06/27/2023 FINDINGS: The common femoral, superficial femoral and popliteal veins demonstrate normal respiratory variation, augmentation and compressibility. Color flow is also seen within the posterior tibial, pe roneal, greater saphenous and profunda veins. IMPRESSION: 1: No lower extremity deep venous thrombosis. Reviewed, dictated and finalized at location A. GRADER
--- NOTE | ~2023-07-08 | XR_ITS ---
EXAMINATION: XR chest 1V portable DATE: 07/10/2023 06:01 INDICATION: Pneumonia TECHNIQUE: frontal view of the chest was obtained. COMPARISON: Chest radiograph and CT dated 07/08/2023 FINDINGS: Persistent airspace opacities in the bilateral lower lung zones. There is some improved aeration at t he left lung base with resolution of the prior mild elevation the left hemidiaphragm. No pleural effu dileep or pneumothorax. Mild cardiomegaly. Enlargement of the central pulmonary arteries consistent wit h pulmonary arterial hypertension. Calcified lymph nodes at the AP window consistent with old granulo matous disease. IMPRESSION: 1. Improved aeration at the left lung base with persistent opacities in the bilateral lower lung zone s which could represent atelectasis or pneumonia. 2. Cardiomegaly with enlargement of the central pulmonary arteries consistent with pulmonary arterial hypertension. Reviewed, dictated and finalized at location A. SWARE MAKER IMPRESSION: 1. Improved aeration at the left lung base with persistent opacities in the matilde ateral lower lung zones which could represent atelectasis or pneumonia. 2. Cardiomegaly with enlargement of the central pulmonary arteries consistent w ith pulmonary arterial hypertension.
--- NOTE | ~2023-07-08 | XR_ITS ---
EXAMINATION: XR chest 1V portable DATE: 07/08/2023 17:18 INDICATION: Hypoxia. Altered mental status. TECHNIQUE: A single frontal view of the chest was obtained. COMPARISON: Chest 2 views 02/19/2023, CT abdomen and pelvis 08/29/2022 FINDINGS: There is chronic mild elevation of left hemidiaphragm. There are airspace opacities in the mid and lower lung zones. No pleural effusion or pneumothorax. The heart size is normal. IMPRESSION: 1. Airspace opacities in the mid and lower lung zones, consistent with atelectasis versus pneumonia. Reviewed, dictated and finalized at location A. CLERK IMPRESSION: 1. Airspace opacities in the mid and lower lung zones, consistent with atelecta sis versus pneumonia.
--- NOTE | ~2023-07-08 | XR_ITS ---
Portable chest x-ray Comparison: 07/08/2023 Clinical History: Respiratory failure Findings: There is minimal haziness left lung base, nonspecific. Right lung clear. Cardiomediastina l silhouette is stable. Bones and soft tissues are unremarkable. Impression: Minimal haziness left lung base, nonspecific. Correlate for atelectasis or pneumonia. Reviewed, dictated and finalized at location . SHOT SWAGE OPERATOR Impression: Minimal haziness left lung base, nonspecific. Correlate for atelectasis or pneu monia.
--- NOTE | ~2023-07-08 | CT_ITS ---
EXAMINATION: CTA chest PE protocol DATE: 07/08/2023 19:37 INDICATION: Shortness of breath, hypoxia and cough TECHNIQUE: Computed tomography (CT) pulmonary angiogram of the chest was performed with 100 mL Omnipa que-350 intravenous contrast. Additional 3D reconstructions utilizing coronal maximum intensity proje ction (MIP) were performed. Automated exposure control and iterative reconstruction technique were em ployed. The dose-length product was 856.89 mGy-cm. COMPARISON: 10/27/2021 FINDINGS: Good contrast opacification of the pulmonary arteries. There is mild streak artifact from dense contr ast in the superior vena cava and right atrium. Mild to moderate scattered respiratory motion artifac t which decreases sensitivity in some of the smaller subsegmental pulmonary arteries. No definitive p ulmonary embolism. Mild emphysema. Elevation of the left hemidiaphragm. There is volume loss with ban dlike regions of consolidation in the bilateral lower lobes and favor atelectasis over pneumonia. Add itional dependent groundglass opacities in the bilateral upper and lower lobes consistent with additi onal atelectasis. Calcified left upper lobe nodule along with calcified mediastinal lymph nodes consi stent with old granulomatous disease. Mild cardiomegaly. Atherosclerotic coronary artery calcificatio n. No pericardial effusion. Thoracic aorta is normal in caliber with no dissection. Unchanged enlarge ment of the central pulmonary arteries consistent with pulmonary arterial hypertension. No pathologic ally enlarged thoracic lymphadenopathy. Severe lower thoracic spondylosis. Cholecystectomy clips at t he gallbladder fossa. IMPRESSION: 1. No pulmonary embolism. Sensitivity decreased in some of the smaller subsegmental pulmonary arterie s particularly at the lung bases due to some respiratory motion artifact. 2. Mild emphysema. 3. Bandlike regions of consolidation in the bilateral lower lobes with associated volume loss and fav or atelectasis over pneumonia. 4. Cardiomegaly with chronic enlargement of the central pulmonary arteries consistent with pulmonary arterial hypertension. Reviewed, dictated and finalized at location A. OND SORTER IMPRESSION: 1. No pulmonary embolism. Sensitivity decreased in some of the smaller subsegme ntal pulmonary arteries particularly at the lung bases due to some respiratory motion artifact. 2. Mild emphysema. 3. Bandlike regions of consolidation in the bilateral lower lobes with associat ed volume loss and favor atelectasis over pneumonia. 4. Cardiomegaly with chronic enlargement of the central pulmonary arteries cons istent with pulmonary arterial hypertension.
--- NOTE | ~2023-07-08 | XR_ITS ---
EXAMINATION: XR chest 1V portable DATE: 07/12/2023 15:01 INDICATION: Cough. TECHNIQUE: A single frontal view of the chest was obtained. COMPARISON: Chest single view 07/10/2023, chest CT 07/08/2023 FINDINGS: There are airspace opacities in the lower lung zones. No pleural effusion or pneumothorax. The heart size is normal. IMPRESSION: 1. Airspace opacities in the lower lung zones with improvement on the right, consistent with atelecta sis versus pneumonia. Reviewed, dictated and finalized at location E. E REPAIRER IMPRESSION: 1. Airspace opacities in the lower lung zones with improvement on the right, co nsistent with atelectasis versus pneumonia.
--- NOTE | ~2023-07-08 | CT_ITS ---
EXAMINATION: CT brain wo con DATE: 07/08/2023 19:30 INDICATION: Altered mental status TECHNIQUE: Computed tomography (CT) of the head was performed without intravenous contrast. Sagittal and coronal reconstructions were performed. Automated exposure control and iterative reconstruction t echnique were employed. The dose-length product was 681.00 mGy-cm. COMPARISON: head CT dated 07/12/2022 and 04/01/2019 FINDINGS: No acute intracranial hemorrhage, acute infarction or abnormal extra axial fluid collection. Unchange d small old lacunar infarct in the subcortical white matter of the posterior left frontal lobe. There is mild scattered white matter hypoattenuation consistent with chronic small vessel ischemic disease . Symmetric prominence of the sulci and ventricles consistent with mild to moderate age-appropriate d iffuse cerebral volume loss. No mass/mass effect. Changes of bilateral intraocular lens replacement. Likely benign chronic osseous excrescences extending into the right maxillary sinus residue and later al wall are most likely either an osteoma or fibrous dysplasia. The orbits and mastoid air cells are normal. IMPRESSION: 1. No acute intracranial process. 2. 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 3. Age-related changes including mild diffuse volume loss and mild scattered white matter hypoattenua tion consistent with chronic small vessel ischemic disease. Reviewed, dictated and finalized at location A. AINABILITY OFFICER IMPRESSION: 1. No acute intracranial process. 2. 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 3. Age-related changes including mild diffuse volume loss and mild scattered wh ite matter hypoattenuation consistent with chronic small vessel ischemic diseas e.
--- NOTE | 2023-07-08 16:08 | ECG_ITS ---
Measurements Intervals [place] Rate: 82 P: 31 AL: 171 QRS: -26 QRSD: 114 T: 29 QT: 384 QTc: 451 Interpretive Statements SINUS RHYTHM WITH MARKED SINUS ARRHYTHMIA INTRAVENTRICULAR CONDUCTION DELAY BORDERLINE R WAVE PROGRESSION, ANTERIOR LEADS BASELINE ARTIFACT- I, II, III, V4-V6 BORDERLINE ECG COMPARED TO ECG 06/26/2023 10:44:59 SINUS ARRHYTHMIA NOW PRESENT Electronically Signed On 07-08-2023 19:58:18 TELEVISION PRODUCTION ASSISTANT by Garett Barker D.O.
[2023-07-08 16:33] LABS: Basophils Percent Auto 0.4 % (0.2-1.2); Eosinophils Absolute Auto 0.3 K/mm3 (0-0.3); Eosinophils Percent Auto 3.5 % (0-4.4); Hematocrit 34.9 % (42.0-52.0); Hemoglobin 10.9 g/dL (14.0-18.0); Immature Granulocyte Absolute 0.04 K/mm3 (0.00-0.031); Immature Granulocyte Percent A 0.5 % (0-0.5); Lymphocytes Absolute Auto 1.35 K/mm3 (0.9-3.2); Lymphocytes Percent Auto 18.3 % (18.3-44.2); Mean Corpuscular HGB Conc 31.2 g/dl (32-36); Mean Corpuscular Hemoglobin 30.7 pg (26-34); Mean Corpuscular Volume 98.3 fl (80-100); Mean Platelet Volume 9.5 fl (7.4-10.4); Monocytes Absolute Auto 0.4 K/mm3 (0.1-0.6); Monocytes Percent Auto 5.8 % (2.6-8.5); Neutrophils Absolute Auto 5.3 K/mm3 (1.3-6.7); Neutrophils Percent Auto 71.5 % (45.5-73.1); Platelet Count Result 355 k/mm3 (150-375); Red Blood Count 3.55 M/mm3 (4.6-6.20); Red Cell Distribution Width 14.4 % (11.5-14.5); White Blood Count 7.4 K/mm3 (4.5-10.0)
[2023-07-08 16:39] LABS: Alanine Aminotransferase 36 U/L (6-50); Albumin Level 3.6 g/dL (3.5-5.1); Alkaline Phosphatase 91 U/L (38-126); Anion Gap 6 mmol/L (8-16); Aspartate Amino Transferase 38 U/L (17-59); Bilirubin,Total 0.5 mg/dL (0.2-1.3); Blood Urea Nitrogen 18 mg/dL (9-20); Calcium 8.9 mg/dL (8.4-10.2); Carbon Dioxide 33 mmol/L (22-30); Chloride 103 mmol/L (98-107); Estimated Glomerular Filt Rate > 60; Glucose 114 mg/dL (65-110); Potassium 4.4 mmol/L (3.4-5.0); Sodium 142 mmol/L (137-145)
[2023-07-08 16:45] LABS: Appearance Urine Clear (Clear); Bacteria Urine None Seen /hpf; Bilirubin Urine Negative (Negative); Blood Urine Negative (Negative); Color Urine Dark Yellow (Yellow); Glucose Urine UA Negative (Negative); Ketones Urine Negative (Negative); Leukocyte Esterase Ur Trace LEU/UL (Negative); Nitrate Urine Negative (Negative); Non Pathogenic Casts 0-2; Protein Urine Negative (Negative); RBC Urine 0-2 /hpf (0-2); Specific Grav Ur 1.016 (1.001-1.035); Squamous Epithelial Cell Urine None seen /hpf (Few); WBC Urine 0-5 /hpf; pH Urine 5.5 (5.0-9.0)
[2023-07-08 16:52] LABS: INR 1.1; Prothrombin Time 14.5 Seconds (11.1-14.7)
[2023-07-08 16:53] LABS: Partial Thromboplastin Time 31.1 SECONDS (22.3-36.8)
[2023-07-08 16:59] LABS: Add Urine Microscopic? YES
--- NOTE | 2023-07-08 17:19 | PC.NURSE ---
unable to assess balance due to weakness and fall risk
[2023-07-08 18:17] LABS: Influenza A QL RT-PCR Negative (Negative); Influenza B QL RT-PCR Negative (Negative); RSV RNA, RT-PCR Negative (Negative); SARS-CoV-2 RNA PCR Negative (Negative)
--- NOTE | 2023-07-08 19:01 | ED.AMS ---
HPI - Altered Mental Status General Chief Complaint: Altered Mental Status Stated Complaint: AMS, diff breathing Time Seen by Provider: 07/08/23 17:03 Source: patient, RN notes reviewed and old records reviewed Mode of arrival: EMS Limitations: altered mental status and clinical condition History of Present Illness HPI narrative: Patient is a 82 y/o male who presents to the ED via EMS with report of AMS and low SaO2. Patient is currently residing at [facility] after right knee arthroplasty 06/23, did not do well at home and admitted to rehab for failure to thrive. Patient was noted to be increasingly altered today and have low oxygen saturation. Typically A&O x3. A&O x2 currently, does appear confused. Patient does admit to difficulty breathing. Per records, it appears that this was an acute onset today. Patient with gargling and cough on evaluation. He is unable to tell me how long this has been going on. He denies chest pain. Related Data Home Medications Medication Instructions Recorded Confirmed fluticasone propionate 50 1 spray intranasal DAILY 07/18/19 07/09/23 mcg/actuation nasal spray,suspension (Allergy Relief (fluticasone)) aspirin 81 mg tablet,delayed 81 mg PO BID 08/21/19 07/09/23 release (Michele Low Dose Aspirin) famotidine 40 mg tablet 40 mg PO BID 08/21/19 07/09/23 duloxetine 60 mg capsule,delayed 60 mg PO QPM 09/05/19 07/09/23 release multivitamin 1 tablet PO DAILY 06/04/22 07/09/23 fluticasone fur. 100 mcg-umeclid 1 ea inhalation QAM 04/07/23 07/09/23 62.5 mcg-vilant 25 mcg inhalat.powder (Trelegy Ellipta) montelukast 10 mg tablet 10 mg PO DAILY 04/07/23 07/09/23 omega 3-ikz-seo-fish oil 1,200 mg 1,200 cap PO BID 04/07/23 07/09/23 (144 mg-216 mg) capsule (Fish Oil) psyllium husk 0.4 gram capsule 0.4 g PO DAILY PRN Constipation 04/07/23 07/09/23 (Daily Fiber) acetaminophen 500 mg tablet 975 mg PO Q6H 07/09/23 07/09/23 albuterol sulfate 90 mcg/actuation 2 puff inhalation QID 07/09/23 07/09/23 aerosol inhaler cetirizine 10 mg tablet 10 mg PO DAILY 07/09/23 07/09/23 dextrose 40 % oral gel (Glucose 15 g PO Q15M PRN low blood sugar 07/09/23 07/09/23 Gel) dextrose 5 % in water (D5W) 100 ml IV Q1H PRN low blood sugar 07/09/23 07/09/23 dextrose 50 % in water (D50W) 12.5 g IV Q15M PRN low blood sugar 07/09/23 07/09/23 glucagon 1 mg solution for 1 mg subcut Q20M PRN low blood 07/09/23 07/09/23 injection sugar multivitamin with minerals 1 tablet PO BID 07/09/23 07/09/23 Allergies Allergy/AdvReac Type Severity Reaction Status Date / Time No Known Allergies Allergy Verified 07/08/23 16:12 Review of Systems Review of Systems: ROS unobtainable: Yes unobtainable due to mental status PMFSH Past Medical History Medical History Adenomatous colon polyp Anxiety Arthritis BPH (benign prostatic hyperplasia) Depression Hyperlipemia Hypertension Type 2 diabetes mellitus Viral syndrome Surgical History Surgical History History of cataract removal with insertion of prosthetic lens bilateral History of colonoscopy 2015 History of laparoscopic cholecystectomy 2012 S/P ACL repair Status post meniscectomy BL knee medial Family History Family History Father Diabetes mellitus Coronary artery abnormality Mother Anxiety Sibling Lung cancer Social History Social History Smoking status: Former smoker Tobacco type: cigars Second hand tobacco smoke exposure: No Smoking end date: 02/06/85 Additional smoking assessment comments: one cigar a day Alcohol intake: former Drinks per week: 3 Substance use: never Substance use type: does not use Lack of Transportation: No Lack of Food: Never True Current Housing: [facility]
[2023-07-08 19:13] LABS: NT Pro B Type Natriuretic Pept 120 pg/mL (19.9-100); Troponin I < 0.012 ng/mL (0.000-0.034)
[2023-07-08 19:15] LABS: Alveolar/Arterial O2 Gradient 87.5 mmHg; Base Excess ABG 4.4 mEq/l (+/-2.0); Carboxyhemoglobin 1.2 % THb (0-2.0); Fractional Inspired Oxygen 32 %; HCO3 ABG 32.7 mEq/l (22.0-26.0); Methemoglobin ABG 0.3 %THb (0-1.5); Oxygen Content ABG 14.2 %vol (16.0-22.0); PO2 ABG 59.6 mmHg (80.0-100.0); PO2 FiO2 Ratio Arterial Blood 1.86 %; Reduced Hemoglobin 12.1 %THb (0-5.0); Total Hemoglobin 11.7 g/dL (12.0-18.0); pH ABG 7.292 (7.350-7.450)
[2023-07-08 19:16] LABS: Oxyhemoglobin 86.4 % THb (90.0-100.0); PCO2 ABG 69.3 mmHg (35.0-45.0)
[2023-07-08 19:17] LABS: Device NASAL CANNULA; Modified Allen's Test Pass; Site Drawn RIGHT RADIAL
--- NOTE | 2023-07-08 20:33 | PM.IMHP ---
H&P: HPI History of Present Illness Date/Time: 07/08/23 20:33 Chief Complaint: SHORTNESS OF BREATH Narrative: THIS IS AN 82-YEAR-OLD MALE WITH PAST MEDICAL HISTORY SIGNIFICANT FOR COPD/EMPHYSEMA, DEGENERATIVE JOINT DISEASE, STATUS POST TOTAL KNEE REPLACEMENT, PATIENT COMES FROM REHABILITATION CENTER DUE TO SHORTNESS OF BREATH AND LOW PULSE OX. AT THE TIME OF MY VISIT PATIENT IS OBTUNDED ON BIPAP. MOST OF THE HISTORY WAS OBTAINED UPON REVIEWING MEDICAL RECORDS. INITIAL WORKUP WAS SIGNIFICANT FOR RULED OUT FOR PE WITH CT ANGIOGRAM OF THE CHEST BUT SIGNIFICANT FOR LUNG INFILTRATES. PATIENT HAS BEEN ADMITTED FOR FURTHER EVALUATION MANAGEMENT AND TREATMENT. EXAMINATION: XR chest 1V portable DATE: 07/08/2023 17:18 INDICATION: Hypoxia. Altered mental status. TECHNIQUE: A single frontal view of the chest was obtained. COMPARISON: Chest 2 views 02/19/2023, CT abdomen and pelvis 08/29/2022 FINDINGS: There is chronic mild elevation of left hemidiaphragm. There are airspace opacities in the mid and lower lung zones. No pleural effusion or pneumothorax. The heart size is normal. IMPRESSION: 1. Airspace opacities in the mid and lower lung zones, consistent with atelectasis versus pneumonia. EXAMINATION: CT brain wo con DATE: 07/08/2023 19:30 INDICATION: Altered mental status TECHNIQUE: Computed tomography (CT) of the head was performed without intravenous contrast. Sagittal and coronal reconstructions were performed. Automated exposure control and iterative reconstruction technique were employed. The dose-length product was 681.00 mGy-cm. COMPARISON: head CT dated 07/12/2022 and 04/01/2019 FINDINGS: No acute intracranial hemorrhage, acute infarction or abnormal extra axial fluid collection. Unchanged small old lacunar infarct in the subcortical white matter of the posterior left frontal lobe. There is mild scattered white matter hypoattenuation consistent with chronic small vessel ischemic disease. Symmetric prominence of the sulci and ventricles consistent with mild to moderate age-appropriate diffuse cerebral volume loss. No mass/mass effect. Changes of bilateral intraocular lens replacement. Likely benign chronic osseous excrescences extending into the right maxillary sinus residue and lateral wall are most likely either an osteoma or fibrous dysplasia. The orbits and mastoid air cells are normal. IMPRESSION: 1. No acute intracranial process. 2. 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 3. Age-related changes including mild diffuse volume loss and mild scattered white matter hypoattenuation consistent with chronic small vessel ischemic disease. EXAMINATION: CTA chest PE protocol DATE: 07/08/2023 19:37 INDICATION: Shortness of breath, hypoxia and cough TECHNIQUE: Computed tomography (CT) pulmonary angiogram of the chest was performed with 100 mL Omnipaque-350 intravenous contrast. Additional 3D reconstructions utilizing coronal maximum intensity projection (MIP) were performed. Automated exposure control and iterative reconstruction technique were employed. The dose-length product was 856.89 mGy-cm. COMPARISON: 10/27/2021 FINDINGS: Good contrast opacification of the pulmonary arteries. There is mild streak artifact from dense contrast in the superior vena cava and right atrium. Mild to moderate scattered respiratory motion artifact which decreases sensitivity in some of the smaller subsegmental pulmonary arteries. No definitive pulmonary embolism. Mild emphysema. Elevation of the left hemidiaphragm. There is volume loss with bandlike regions of consolidation in the bilateral lower lobes and favor atelectasis over pneumonia. Additional dependent groundglass opacities in the bilateral upper and lower lobes consistent with additional atelectasis. Calcified left upper lobe nodule along with calcified mediastinal lymph nodes consistent with old granulomatous disease. Mild cardiomegaly. Atherosclerotic marcelo
[2023-07-08] MEDS: CEFEPIME 2 GM/NS 50 ML 2 GM/50 ML BAG IVPB (20:47)
[2023-07-08] MEDS: AZITHROMYCIN 500 MG/NS 250 ML 500 MG/250 ML BAG 250 MG IVPB (21:03)
[2023-07-08 21:09] LABS: Lactic Acid Reflex 0.7 mmol/L (0.7-2.0)
--- NOTE | 2023-07-08 21:23 | PC.NURSE ---
Patient's POA called stating for further updates to [facility] [phone].
[2023-07-08] MEDS: VANCOMYCIN 1,250 MG/NS 250 ML 1,250 MG/250 ML BAG 166.67 MG IVPB ×2 (22:18→23:47)
[2023-07-08 22:38] LABS: MRSA (PCR) NOT DETECTED (NOT DETECTE)
[2023-07-08 23:46] LABS: Alveolar/Arterial O2 Gradient 144.9 mmHg; Base Excess ABG 2.7 mEq/l (+/-2.0); Carboxyhemoglobin 1.2 % THb (0-2.0); Fractional Inspired Oxygen 45 %; HCO3 ABG 33.8 mEq/l (22.0-26.0); Methemoglobin ABG 0.4 %THb (0-1.5); Oxygen Content ABG 15.3 %vol (16.0-22.0); Oxyhemoglobin 88.7 % THb (90.0-100.0); PO2 ABG 69.5 mmHg (80.0-100.0); PO2 FiO2 Ratio Arterial Blood 1.54 %; Reduced Hemoglobin 9.7 %THb (0-5.0); Total Hemoglobin 12.2 g/dL (12.0-18.0)
[2023-07-08 23:47] LABS: Device BIPAP; Modified Allen's Test Pass; PCO2 ABG 93.6 mmHg (35.0-45.0); Site Drawn RIGHT RADIAL; pH ABG 7.175 (7.350-7.450)
[2023-07-08 23:48] LABS: Expiratory Pressure 6 cmH2O; Inspiratory Pressure 12 cmH2O
[2023-07-09] VITALS (25 sets, daily range): BP systolic 99–168; BP diastolic 34–67; PULSE 73–96; RESP 18–35; TEMP 36.2–37.4; O2SAT 90–100; BMI 29.3
--- NOTE | 2023-07-09 00:14 | ECG_ITS ---
Measurements Intervals [place] Rate: 82 P: 50 ND: 164 QRS: 19 QRSD: 121 T: 38 QT: 370 QTc: 432 Interpretive Statements SINUS RHYTHM MODERATE INTRAVENTRICULAR CONDUCTION DELAY [110+ ms QRS DURATION] BORDERLINE ECG COMPARED TO ECG 07/08/2023 15:59:15 NO SIGNIFICANT CHANGES Electronically Signed On 07-09-2023 13:20:43 RELEASE MANAGER by Best Nieto M.D.
--- NOTE | 2023-07-09 00:18 | ADMGEN ---
This patient, Kan Lawson, was admitted to IMU Room 232-01. Patient/family oriented to hospital policies and general routines including ID bracelet, bed and alarms, visiting hours, pain management, procedures, bathroom and other care routines, personal items, smoking policy, room service/diet, and visiting hours. Information on how to activate the Rapid Response Team has been discussed. Patient/Family are encouraged to report perceived risks to care and to ask questions if they do not understand what they are told or what they should do.
[2023-07-09 00:24] LABS: Glucose Point of Care 115 mg/dl (65-105)
--- NOTE | 2023-07-09 00:36 | PC.NURSE ---
This patient arrived to floor at [address] Patient was unresponsive pulling tidal volumes of 100. While nurses and techs were moving patient over to IMU bed, it is reported by Theodore Calderón IMU RN, ER nurse received a call on vocera from ED physician. ED physician: What are you doing with the patient for 13? ER NUrse: We are transferring him over to the IMU bed. ED physician: Oh, well, he may need to be intubated. Critical an worsening ABG's were called to Jeremie Mehta, ER automotive technician instructor, at 2346: pH 7.145 and CO2 of 93.6. No changes to ABG settings had been made. Joy Foss RT was notified and she changed patient to AVAPS settings with DR Boyd's approval. Patient currently pulling tidal volumes 500-600. Will check ABG 1 hour after changes were made. Dr Boyd has confirmed with PO[facility] they want everything done.
[2023-07-09 01:27] LABS: Alveolar/Arterial O2 Gradient 167.9 mmHg; Base Excess ABG 4.5 mEq/l (+/-2.0); Fractional Inspired Oxygen 50 %; HCO3 ABG 34.7 mEq/l (22.0-26.0); Oxygen Content ABG 16.3 %vol (16.0-22.0); Oxygen Saturation ABG 94.8 % (95.0-100.0); Oxyhemoglobin 94.3 % THb (90.0-100.0); PO2 FiO2 Ratio Arterial Blood 1.82 %; Total Hemoglobin 12.2 g/dL (12.0-18.0)
[2023-07-09 01:29] LABS: Device NON-INVASIVE VENT; Modified Allen's Test Pass; Non-Invasive Vent Rate 30 /MIN; PCO2 ABG 86.8 mmHg (35.0-45.0); Site Drawn RIGHT RADIAL
[2023-07-09] MEDS: CEFEPIME 2 GM/NS 50 ML 2 GM/50 ML BAG IVPB ×3 (04:45→21:16)
[2023-07-09 04:55] LABS: Alveolar/Arterial O2 Gradient 178.5 mmHg; Base Excess ABG 6.3 mEq/l (+/-2.0); Fractional Inspired Oxygen 50 %; HCO3 ABG 35.7 mEq/l (22.0-26.0); Oxygen Content ABG 16.3 %vol (16.0-22.0); Oxyhemoglobin 94.3 % THb (90.0-100.0); PO2 ABG 88.1 mmHg (80.0-100.0); PO2 FiO2 Ratio Arterial Blood 1.76 %; Total Hemoglobin 12.2 g/dL (12.0-18.0)
[2023-07-09 04:56] LABS: Device NON-INVASIVE VENT; Modified Allen's Test Pass; Non-Invasive Vent Rate 30 /MIN; PCO2 ABG 79.9 mmHg (35.0-45.0); Site Drawn RIGHT RADIAL; pH ABG 7.268 (7.350-7.450)
[2023-07-09 05:22] LABS: Hematocrit 35.9 % (42.0-52.0); Mean Corpuscular HGB Conc 30.6 g/dl (32-36); Mean Corpuscular Volume 101.1 fl (80-100); Mean Platelet Volume 9.2 fl (7.4-10.4); Platelet Count Result 336 k/mm3 (150-375); Red Blood Count 3.55 M/mm3 (4.6-6.20); Red Cell Distribution Width 14.3 % (11.5-14.5); White Blood Count 10.9 K/mm3 (4.5-10.0)
[2023-07-09 05:42] LABS: Anion Gap 5 mmol/L (8-16); Blood Urea Nitrogen 15 mg/dL (9-20); Calcium 8.8 mg/dL (8.4-10.2); Carbon Dioxide 37 mmol/L (22-30); Chloride 100 mmol/L (98-107); Estimated CRCL calculation 68 ml/min; Estimated Glomerular Filt Rate > 60; Glucose 128 mg/dL (65-110); Potassium 4.4 mmol/L (3.4-5.0); Sodium 142 mmol/L (137-145)
--- NOTE | 2023-07-09 09:40 | PM.IMPN ---
Progress Note: A&P Assessment and Plan (1) Acute respiratory failure with hypoxia and hypercapnia: Code(s): J96.01 - Acute respiratory failure with hypoxia; J96.02 - Acute respiratory failure with hypercapnia Status: Acute Assessment and Plan: Admit to IMU Continuous BiPAP. ABG reviewed CTA reviewed with bilateral pneumonia Chest x-ray reviewed RULED OUT FOR PE On vanc cefepime and azithromycin Pulmonary consultation discussed with him (2) Pneumonia: Qualifiers: Laterality: bilateral Lung location: lower lobe of lung Pneumonia type: due to unspecified organism Qualified Code(s): J18.9 - Pneumonia, unspecified organism Code(s): J18.9 - Pneumonia, unspecified organism Status: Acute Assessment and Plan: EXTRACTED ON VANCOMYCIN CEFEPIME AND ZITHROMAX CULTURES IN PROGRESS (3) Altered mental status: Qualifiers: Altered mental status type: unspecified Qualified Code(s): R41.82 - Altered mental status, unspecified Code(s): R41.82 - Altered mental status, unspecified Status: Acute Assessment and Plan: Likely secondary to 1. CT head reviewed (4) COPD with emphysema: Code(s): J43.9 - Emphysema, unspecified Status: Acute Assessment and Plan: BREATHING TREATMENTS scheduled CURRENTLY ON BIPAP (5) Total knee replacement status: Code(s): Z96.659 - Presence of unspecified artificial knee joint Status: Acute Assessment and Plan: UNDERGOING REHABILITATION Plan Venous duplex Cardiomegaly with pulmonary arterial hypertension noted on CTA Subjective Date/time seen: 07/09/23 09:40 Interval history: Patient more awake. Was taken off BiPAP earlier but vomited oxygen saturation is okay. On 60% FiO2 Review of Systems Review of Systems: All systems reviewed & are unremarkable except as noted in HPI and below Exam Narrative: GENERAL:? Elderly, well nourished, non-toxic, in no acute distress. On BiPAP HEAD: Normocephalic, atraumatic. NECK: Supple. No adenopathy, no masses. RESPIRATORY: Airway patent, mildly tachypneic. Diminished breath sound bilaterally no wheeze or rhonchi CARDIOVASCULAR: Regular rate and rhythm without murmurs, rubs, or gallops. Radial pulses 2+ and equal bilaterally. ABDOMINAL: Soft, nontender, mildly distended, no hepatosplenomegaly. Normoactive BS. MUSCULOSKELETAL: Moves all extremities. Strength/ROM intact without gross deformities. No significant lower extremity edema. SKIN: Warm, dry, normal color. No rashes. NEURO: A&O X2-3, appears confused at times. Follows commands. Speech clear. Cranial nerves II-XII grossly intact. No ataxic movements. PSYCHIATRIC: Appropriate mood and affect. Normal interaction. Objective Data Vital Signs Vital Signs: Vital Signs - 24 hr 07/08/23 16:13 07/08/23 16:00 07/08/23 16:18 Temperature 98.2 F 98.2 F Pulse Rate 72 71 Respiratory Rate 20 19 Blood Pressure 124/61 120/57 L Pulse Oximetry 88 L 97 Oxygen Delivery Room Air Fraction of Inspired Oxygen 07/08/23 16:31 07/08/23 17:16 07/08/23 17:31 Temperature Pulse Rate 99 74 74 Respiratory Rate 20 20 18 Blood Pressure 124/77 133/59 L 155/72 H Pulse Oximetry 97 97 Oxygen Delivery Fraction of Inspired Oxygen 07/08/23 17:46 07/08/23 19:37 07/08/23 19:47 Temperature Pulse Rate 70 78 Respiratory Rate 20 23 H 16 Blood Pressure 159/53 H 176/72 H Pulse Oximetry 95 Oxygen Delivery BiPAP Fraction of Inspired Oxygen 07/08/23 20:51 07/08/23 22:20 07/08/23 23:28 Temperature Pulse Rate 84 79 84 Respiratory Rate 16 19 16 Blood Pressure 170/58 H 124/58 L 148/58 H Pulse Oximetry 92 95 95 Oxygen Delivery Fraction of Inspired Oxygen 07/09/23 00:08 07/09/23 00:00 07/09/23 00:24 Temperature 97.1 F L Pulse Rate 73 92 Respiratory Rate 27 H 30 H 30 H Blood Pressure 168/61 H Pulse Oximetry 98 99 Oxygen Delivery BiPAP BiPAP Fraction of I
--- NOTE | 2023-07-09 11:58 | PM.CNPUL ---
Assessment and Plan Assessment and plan (1) Acute respiratory failure with hypoxia and hypercapnia: Code(s): J96.01 - Acute respiratory failure with hypoxia; J96.02 - Acute respiratory failure with hypercapnia Status: Acute Assessment and Plan: Per the family patient is a never smoker. He carries a diagnosis of COPD. I have no PFTs. His CT scan of the chest on 07/08/2023 shows minimal apical predominant centrilobular emphysema. His home medicine list includes trilogy 100-62.5-25 at 1 puff q.day. The patient was transferred from inpatient rehab for altered mental status and hypoxemia. The patient states maybe he vomited but can not fully recall. It is unclear if the patient was taking oxycodone. In the emergency department he was hypoxic with a blood gas of 7.29/69/60 and was placed on noninvasive ventilation. He had no wheezing. CT angiogram of the chest demonstrated no PE with bibasilar atelectasis versus pneumonia. He was empirically started on vancomycin, cefepime and azithromycin. COVID influenza and RSV RT PCR studies negative. BNP was 120, troponin was negative. 07/09/23: When I entered the room the patient was on noninvasive ventilation with the AVAPS mode with settings as above. He was very tachypneic and said it was uncomfortable. He also had a high leak. I changed him to a rate of 20, tidal volume 500, minimal EPAP 4, minimal inspiratory pressure for 5, maximal inspiratory pressure 30 and I was able to decrease him to 35% FiO2. He said this was more comfortable. The patient said he felt like he was breathing back to his baseline was awake following simple commands and I converted him to a nasal cannula oxygen and titrate him down from 6 L to 2 L. on 2 L nasal cannula his saturations were 93%. Plan: Patient is currently awake following simple commands and communicative. I have taken my off the noninvasive ventilator placed him on 2 L nasal cannula. I would continue nasal cannula oxygen and the noninvasive ventilator p.r.n. during the day and he should wear this at night. I will contact [facility] to try to obtain a recent download. I have told the family to try to bring in his home CPAP machine so that eventually he will be able to wear this while he is in the hospital. I will repeat a chest x-ray on 07/10/2023 to look for progression of any infiltrates. I will check an MRSA swab. Follow patient's temperature, leukocytosis, sputum production and improving and if blood cultures remain negative at 48 hours and patient is clinically improving would consider discontinuation of antibiotics at that time. Discussed with 3 family members at the bedside. Discussed with Dr. Cyr. Pulmonary inpatient consultative services will resume on 07/12/2023. Call with questions. History of Present Illness History of Present Illness Consult date: 07/09/23 Chief complaint: Acute Resp Failure w Hypoxia/Hypercapnia/PNA/AMS Narrative: 07/09/2023: This is a new pulmonary consult for hypercarbic respiratory failure. 82-year-old man with a history of diabetes, hypertension, hyperlipidemia, obstructive sleep apnea on CPAP 4 [facility], COPD. Per the family members the patient had a home sleep study approximately 3-4 months ago and was called back by his physicians and told to wear full face mask with CPAP. They do not know the settings the chart says he was on CPAP 4. Patient is a never smoker. On 06/23/2023 the patient underwent a right total knee replacement was discharged home on 06/24/2023. He was discharged home on his home trilogy 100, montelukast 10, fluticasone nasal spray and Eliquis 2.5 q.12 hours. Patient returned to the emergency department on 06/26 4 weakness and failure to thrive. His room air saturations were 95%. He was clear to auscultation. He had no shortness of breath and is white blood cell count was 10.8 and his creatinine was 0.8. Patient was discharged to [facility] on 06/30
[2023-07-09 12:15] LABS: Glucose Point of Care 117 mg/dl (65-105)
--- NOTE | 2023-07-09 13:20 | PCRCNOTE ---
PATIENT HAS CPAP WITH [facility] SINCE 04-23-23. REQUESTED A DOWNLOAD FOR DR MICHAUD, THEY WILL FAX [facility]MAR.
[2023-07-09] MEDS: IPRATROPIUM BR 0.02% INH SOLN 0.5 MG/2.5 ML VIAL INHALATION ×2 (14:12→19:49)
[2023-07-09] MEDS: ALBUTEROL SULFATE NEB 2.5 MG/3 ML INH INHALATION ×2 (14:12→19:46)
[2023-07-09 17:05] LABS: Glucose Point of Care 118 mg/dl (65-105)
[2023-07-09 19:53] LABS: Alveolar/Arterial O2 Gradient 73.7 mmHg; Base Excess ABG 2.5 mEq/l (+/-2.0); Fractional Inspired Oxygen 28 %; HCO3 ABG 29.2 mEq/l (22.0-26.0); Oxygen Content ABG 20.5 %vol (16.0-22.0); Oxygen Saturation ABG 91.4 % (95.0-100.0); Oxyhemoglobin 90.5 % THb (90.0-100.0); PCO2 ABG 52.5 mmHg (35.0-45.0); PO2 FiO2 Ratio Arterial Blood 2.29 %; Total Hemoglobin 16.1 g/dL (12.0-18.0); pH ABG 7.363 (7.350-7.450)
[2023-07-09 19:55] LABS: Device NASAL CANNULA; Modified Allen's Test Pass; Site Drawn LEFT RADIAL
[2023-07-09] MEDS: AZITHROMYCIN 500 MG/NS 250 ML 500 MG/250 ML BAG 250 MG IVPB (21:16)
[2023-07-09 23:28] LABS: Glucose Point of Care 110 mg/dl (65-105)
[2023-07-10] VITALS (21 sets, daily range): BP systolic 107–134; BP diastolic 52–69; PULSE 71–94; RESP 16–32; TEMP 36.8–37.4; O2SAT 91–99
[2023-07-10] MEDS: IPRATROPIUM BR 0.02% INH SOLN 0.5 MG/2.5 ML VIAL INHALATION ×4 (02:29→21:17)
[2023-07-10] MEDS: ALBUTEROL SULFATE NEB 2.5 MG/3 ML INH INHALATION ×4 (02:30→21:17)
[2023-07-10] MEDS: CEFEPIME 2 GM/NS 50 ML 2 GM/50 ML BAG IVPB ×3 (05:26→20:49)
[2023-07-10 05:38] LABS: Glucose Point of Care 98 mg/dl (65-105)
--- NOTE | 2023-07-10 09:04 | PM.CNOR ---
Assessment and Plan Assessment and plan (1) Acute respiratory failure with hypoxia and hypercapnia: Code(s): J96.01 - Acute respiratory failure with hypoxia; J96.02 - Acute respiratory failure with hypercapnia Status: Acute Assessment and Plan: Patient is an 82-year-old gentleman who was admitted night before last with acute respiratory failure. He was at the [facility] rehab recovering from total knee replacement that he had on 06/23/2023. He was noted to have a ton did affect and decreased mental status was brought to the emergency room were blood gases showed rather severe hypoxia hypercapnia and acidosis. His lactic acid was low normal range. Blood cultures were obtained and are pending. His white count was normal. CT angiogram was obtained which showed basilar infiltrates linear favoring atelectasis over pneumonia. He was started on triple antibiotics to cover pneumonia. There he was placed on maximal ventilation assistance short of endotracheal intubation then switched to CPAP and is using the CPAP at night the was wearing it when I walked in this morning and during the day nasal cannula. 5 minutes after removal of the CPAP since we had looked for the nasal cannula, on room air he continued to have a 95% saturation and he denies shortness of breath or feeling on of breath at this time. He does not remember how he felt her how this came about the long-term. CT angiogram showed no evidence of pulmonary embolism. His DVT prophylaxis regimen was 2 weeks of Eliquis followed by baby aspirin twice daily. For pain control he has been on Celebrex 100 mg daily and Tylenol with a p.r.n. order for oxycodone 2.5 mg every 4 hours prn. I spoke to the nurse at the [facility] re[facility] facility and she advised me that the patient had not received any oxycodone since was ordered p.r.n. he was not having pain. I am going to to skin discontinue the oxycodone just in case Kapil says contributed to his respiratory failure. A CT angiogram also showed chronic pulmonary artery hypertension. In looking back at his past medical history on the EMR I see that he had a CT angiogram in October of 2021 which appears to have been ordered on an outpatient basis because there is no emergency room note associated with that test but it was negative. Indication was shortness of breath.. He also presented to the ER with shortness of breath in August of [address] angiogram at that time. CO2 was 33 P O2 was 95 at that time. He has had head CTs April 2021July of 2022 and evening of admission on 07/08/2023 which showed no acute changes. 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 He did have a urinalysis on admission to the ER 2 days ago and it was clear. His glucose on admission 2 days ago was 120. He had an echocardiogram in August of 2019 which showed no significant abnormalities. He had a carotid ultrasound 06/28/2019 that was within normal limits less than 50% stenosis of the carotid arteries. On admission his BNP was minimally elevated at 120. Troponin was negative. BUN was 15 creatinine 0.8 creatinine clearance estimated at 68. On examination today he was oriented to the year. He did not realize that we were in July not surprising since he was admitted on July 08 up tended. He is aware that he had a knee replacement 2 and half weeks ago and feels that his knee is doing well. Is not having pain in his knee the pain the had before surgery has resolved. On exam his knee shows absolutely no swelling in the knee calf or ankle. When he was admitted to the hospital approximately 3 days after discharge when his nephew proved unable to care for him at home as planned, he did have significant edema in the leg and a venous duplex ultrasound was obtained at
[2023-07-10] MEDS: ASPIRIN 81 MG ENTERIC TABLET PO ×2 (09:18→16:47)
[2023-07-10] MEDS: FAMOTIDINE 20 MG TABLET 40 MG PO ×2 (09:18→16:47)
[2023-07-10] MEDS: LORATADINE 10 MG TABLET PO (09:19)
[2023-07-10] MEDS: SENNA/DOCUSATE SODIUM TABLET 1 TAB PO ×2 (09:19→16:47)
[2023-07-10] MEDS: FLUTICASONE PROPIONATE 0.05% NA SPR 16 GM BTL (*BKC) 1 SPRAY NASAL (09:19)
[2023-07-10] MEDS: OMEGA 3 POLYUNSAT FATTY ACIDS 1 GM CAP PO ×2 (09:19→16:47)
[2023-07-10] MEDS: THERAPEUTIC MULTIVITAMINS/MINERALS TAB (*BKC) 1 TABLET PO (09:19)
[2023-07-10] MEDS: polyethylene glycoL 3350 17 GM POWD.PACK PO (09:19)
[2023-07-10] MEDS: MONTELUKAST SODIUM 10 MG TABLET PO (09:19)
[2023-07-10 10:54] LABS: Basophils Absolute Auto 0.1 K/mm3 (0.0-0.1); Basophils Percent Auto 0.4 % (0.2-1.2); Eosinophils Absolute Auto 0.1 K/mm3 (0-0.3); Eosinophils Percent Auto 0.4 % (0-4.4); Hematocrit 33.2 % (42.0-52.0); Hemoglobin 10.4 g/dL (14.0-18.0); Immature Granulocyte Absolute 0.03 K/mm3 (0.00-0.031); Immature Granulocyte Percent A 0.3 % (0-0.5); Lymphocytes Absolute Auto 1.39 K/mm3 (0.9-3.2); Lymphocytes Percent Auto 12.4 % (18.3-44.2); Mean Corpuscular HGB Conc 31.3 g/dl (32-36); Mean Corpuscular Hemoglobin 31.2 pg (26-34); Mean Corpuscular Volume 99.7 fl (80-100); Mean Platelet Volume 9.8 fl (7.4-10.4); Monocytes Absolute Auto 0.6 K/mm3 (0.1-0.6); Monocytes Percent Auto 5.7 % (2.6-8.5); Neutrophils Percent Auto 80.8 % (45.5-73.1); Platelet Count Result 332 k/mm3 (150-375); Red Blood Count 3.33 M/mm3 (4.6-6.20); White Blood Count 11.2 K/mm3 (4.5-10.0)
[2023-07-10 11:06] LABS: Alanine Aminotransferase 25 U/L (6-50); Albumin Level 3.4 g/dL (3.5-5.1); Alkaline Phosphatase 78 U/L (38-126); Anion Gap 4 mmol/L (8-16); Aspartate Amino Transferase 27 U/L (17-59); Bilirubin,Total 0.7 mg/dL (0.2-1.3); Blood Urea Nitrogen 25 mg/dL (9-20); Calcium 8.8 mg/dL (8.4-10.2); Carbon Dioxide 38 mmol/L (22-30); Chloride 100 mmol/L (98-107); Estimated CRCL calculation 68 ml/min; Estimated Glomerular Filt Rate > 60; Glucose 115 mg/dL (65-110); Potassium 3.7 mmol/L (3.4-5.0); Sodium 142 mmol/L (137-145)
[2023-07-10 11:11] LABS: Glucose Point of Care 105 mg/dl (65-105)
--- NOTE | 2023-07-10 13:02 | PM.IMPN ---
Progress Note: A&P Assessment and Plan (1) Acute respiratory failure with hypoxia and hypercapnia: Code(s): J96.01 - Acute respiratory failure with hypoxia; J96.02 - Acute respiratory failure with hypercapnia Status: Acute Assessment and Plan: Admit to IMU Continuous BiPAP. ABG reviewed any improved. BiPAP at night now CTA reviewed with bilateral pneumonia Chest x-ray reviewed RULED OUT FOR PE On vanc cefepime and azithromycin. Nasal MRSA negative. Vancomycin discontinued Pulmonary consulted BNP 120 COVID flu RSV negative (2) Pneumonia: Qualifiers: Laterality: bilateral Lung location: lower lobe of lung Pneumonia type: due to unspecified organism Qualified Code(s): J18.9 - Pneumonia, unspecified organism Code(s): J18.9 - Pneumonia, unspecified organism Status: Acute Assessment and Plan: EXTRACTED ON VANCOMYCIN CEFEPIME AND ZITHROMAX CULTURES IN PROGRESS Nasal nares MRSA negative. Vancomycin stopped (3) Altered mental status: Qualifiers: Altered mental status type: unspecified Qualified Code(s): R41.82 - Altered mental status, unspecified Code(s): R41.82 - Altered mental status, unspecified Status: Acute Assessment and Plan: Likely secondary to 1. CT head reviewed Unclear etiology for hypercapnia Does mild emphysema (4) COPD with emphysema: Code(s): J43.9 - Emphysema, unspecified Status: Acute Assessment and Plan: BREATHING TREATMENTS scheduled CURRENTLY ON BIPAP (5) Total knee replacement status: Code(s): Z96.659 - Presence of unspecified artificial knee joint Status: Acute Assessment and Plan: UNDERGOING REHABILITATION Plan Venous duplex ordered which is pending Cardiomegaly with pulmonary arterial hypertension noted on CTA Transfer to medical floor Subjective Date/time seen: 07/10/23 13:02 Interval history: Patient more awake. ABG reviewed. Used BiPAP last night. Discussed with Orthopedics. Review of Systems Review of Systems: All systems reviewed & are unremarkable except as noted in HPI and below Exam Narrative: GENERAL:? Elderly, well nourished, non-toxic, in no acute distress. On nasal cannula HEAD: Normocephalic, atraumatic. NECK: Supple. No adenopathy, no masses. RESPIRATORY: Airway patent, Diminished breath sound bilaterally no wheeze or rhonchi CARDIOVASCULAR: Regular rate and rhythm without murmurs, rubs, or gallops. Radial pulses 2+ and equal bilaterally. ABDOMINAL: Soft, nontender, mildly distended, no hepatosplenomegaly. Normoactive BS. MUSCULOSKELETAL: Moves all extremities. Strength/ROM intact without gross deformities. No significant lower extremity edema. SKIN: Warm, dry, normal color. No rashes. NEURO: A&O X2-3, at baseline Follows commands. Speech clear. Cranial nerves II-XII grossly intact. No ataxic movements. PSYCHIATRIC: Appropriate mood and affect. Normal interaction. Objective Data Vital Signs Vital Signs: Vital Signs - 24 hr 07/09/23 14:14 07/09/23 14:21 07/09/23 16:00 Temperature 97.3 F L Pulse Rate 94 96 87 Respiratory Rate 22 H 22 H 24 H Blood Pressure 129/53 L Pulse Oximetry 92 Oxygen Delivery Oxygen Flow Rate Fraction of Inspired Oxygen 07/09/23 16:00 07/09/23 14:00 07/09/23 16:00 Temperature Pulse Rate 75 89 Respiratory Rate Blood Pressure Pulse Oximetry 94 Oxygen Delivery Nasal Cannula Oxygen Flow Rate 2 Fraction of Inspired Oxygen 07/09/23 18:00 07/09/23 19:45 07/09/23 19:45 Temperature Pulse Rate 78 81 81 Respiratory Rate 29 H 29 H Blood Pressure Pulse Oximetry 93 Oxygen Delivery BiPAP Oxygen Flow Rate Fraction of Inspired Oxygen 07/09/23 20:00 07/09/23 19:25 07/09/23 20:00 Temperature 98.0 F Pulse Rate 81 76 77 Respiratory Rate 29 H 18 Blood Pressure 142/61 H Pulse Oximetry 93 93 Oxygen Delivery BiPAP Oxygen Flow Rate Fraction
--- NOTE | 2023-07-10 14:18 | PC.NURSE ---
This patient, Kan Lawson, was received from [facility] on 07/10/23 at 1410. Patient/family oriented to unit policies and routines
--- NOTE | 2023-07-10 14:23 | PC.NURSE ---
This patient, Kan Lawson, was transferred to [[id number] ] on 07/10/23 at 1410. Personal belongings sent with patient. Report given to [Kelly JENKINS ]. Appropriate documentation sent with patient.
[2023-07-10 17:11] LABS: Glucose Point of Care 107 mg/dl (65-105)
[2023-07-10 20:07] LABS: Glucose Point of Care 104 mg/dl (65-105)
[2023-07-10] MEDS: AZITHROMYCIN 500 MG/NS 250 ML 500 MG/250 ML BAG 250 MG IVPB (21:27)
[2023-07-11] VITALS (15 sets, daily range): BP systolic 108–128; BP diastolic 48–57; PULSE 68–90; RESP 16–23; TEMP 36.2–36.7; O2SAT 91–96
[2023-07-11] MEDS: ALBUTEROL SULFATE NEB 2.5 MG/3 ML INH INHALATION ×4 (02:30→20:48)
[2023-07-11] MEDS: IPRATROPIUM BR 0.02% INH SOLN 0.5 MG/2.5 ML VIAL INHALATION ×4 (02:30→20:48)
[2023-07-11 04:59] LABS: Basophils Absolute Auto 0.1 K/mm3 (0.0-0.1); Basophils Percent Auto 0.5 % (0.2-1.2); Eosinophils Absolute Auto 0.2 K/mm3 (0-0.3); Eosinophils Percent Auto 2.3 % (0-4.4); Hematocrit 31.5 % (42.0-52.0); Hemoglobin 9.8 g/dL (14.0-18.0); Immature Granulocyte Absolute 0.05 K/mm3 (0.00-0.031); Immature Granulocyte Percent A 0.5 % (0-0.5); Lymphocytes Absolute Auto 1.28 K/mm3 (0.9-3.2); Mean Corpuscular HGB Conc 31.1 g/dl (32-36); Mean Corpuscular Hemoglobin 30.6 pg (26-34); Mean Corpuscular Volume 98.4 fl (80-100); Mean Platelet Volume 9.8 fl (7.4-10.4); Monocytes Absolute Auto 0.6 K/mm3 (0.1-0.6); Monocytes Percent Auto 6.1 % (2.6-8.5); Neutrophils Absolute Auto 7.6 K/mm3 (1.3-6.7); Neutrophils Percent Auto 77.6 % (45.5-73.1); Platelet Count Result 307 k/mm3 (150-375); Red Cell Distribution Width 14.8 % (11.5-14.5); White Blood Count 9.8 K/mm3 (4.5-10.0)
[2023-07-11] MEDS: CEFEPIME 2 GM/NS 50 ML 2 GM/50 ML BAG IVPB ×3 (05:10→20:24)
[2023-07-11 05:32] LABS: Alanine Aminotransferase 20 U/L (6-50); Albumin Level 3.1 g/dL (3.5-5.1); Alkaline Phosphatase 75 U/L (38-126); Anion Gap 4 mmol/L (8-16); Aspartate Amino Transferase 31 U/L (17-59); Bilirubin,Total 0.6 mg/dL (0.2-1.3); Blood Urea Nitrogen 18 mg/dL (9-20); Calcium 8.5 mg/dL (8.4-10.2); Carbon Dioxide 37 mmol/L (22-30); Chloride 100 mmol/L (98-107); Estimated CRCL calculation 77 ml/min; Estimated Glomerular Filt Rate > 60; Glucose 97 mg/dL (65-110); Potassium 3.4 mmol/L (3.4-5.0); Sodium 141 mmol/L (137-145)
[2023-07-11 08:51] LABS: Glucose Point of Care 86 mg/dl (65-105)
[2023-07-11] MEDS: CELECOXIB 100 MG CAPSULE PO (09:01)
[2023-07-11] MEDS: SENNA/DOCUSATE SODIUM TABLET 1 TAB PO ×2 (09:01→17:15)
[2023-07-11] MEDS: ASPIRIN 81 MG ENTERIC TABLET PO ×2 (09:01→17:15)
[2023-07-11] MEDS: MONTELUKAST SODIUM 10 MG TABLET PO (09:02)
[2023-07-11] MEDS: FLUTICASONE PROPIONATE 0.05% NA SPR 16 GM BTL (*BKC) 1 SPRAY NASAL (09:02)
[2023-07-11] MEDS: FAMOTIDINE 20 MG TABLET 40 MG PO ×2 (09:02→17:16)
[2023-07-11] MEDS: OMEGA 3 POLYUNSAT FATTY ACIDS 1 GM CAP PO ×2 (09:02→17:16)
[2023-07-11] MEDS: LORATADINE 10 MG TABLET PO (09:02)
[2023-07-11] MEDS: THERAPEUTIC MULTIVITAMINS/MINERALS TAB (*BKC) 1 TABLET PO (09:02)
[2023-07-11 11:51] LABS: Glucose Point of Care 126 mg/dl (65-105)
--- NOTE | 2023-07-11 13:40 | PM.IMPN ---
Progress Note: A&P Assessment and Plan (1) Acute respiratory failure with hypoxia and hypercapnia: Code(s): J96.01 - Acute respiratory failure with hypoxia; J96.02 - Acute respiratory failure with hypercapnia Status: Acute Assessment and Plan: Admit to IMU Continuous BiPAP. ABG reviewed any improved. BiPAP at night now. Will switch to home CPAP. He reports that he has not been using his CPAP while he was at [facility] CTA reviewed with bilateral pneumonia Chest x-ray reviewed RULED OUT FOR PE On vanc cefepime and azithromycin. Nasal MRSA negative. Vancomycin discontinued Pulmonary consulted BNP 120 COVID flu RSV negative Back to his baseline (2) Pneumonia: Qualifiers: Laterality: bilateral Lung location: lower lobe of lung Pneumonia type: due to unspecified organism Qualified Code(s): J18.9 - Pneumonia, unspecified organism Code(s): J18.9 - Pneumonia, unspecified organism Status: Acute Assessment and Plan: EXTRACTED ON VANCOMYCIN CEFEPIME AND ZITHROMAX CULTURES IN PROGRESS Nasal nares MRSA negative. Vancomycin stopped (3) Altered mental status: Qualifiers: Altered mental status type: unspecified Qualified Code(s): R41.82 - Altered mental status, unspecified Code(s): R41.82 - Altered mental status, unspecified Status: Acute Assessment and Plan: Likely secondary to 1. CT head reviewed Unclear etiology for hypercapnia Does mild emphysema (4) COPD with emphysema: Code(s): J43.9 - Emphysema, unspecified Status: Acute Assessment and Plan: BREATHING TREATMENTS scheduled CURRENTLY ON BIPAP (5) Total knee replacement status: Code(s): Z96.659 - Presence of unspecified artificial knee joint Status: Acute Assessment and Plan: UNDERGOING REHABILITATION Plan Venous duplex ordered which is pending Cardiomegaly with pulmonary arterial hypertension noted on CTA Transfer to medical floor Will plan for SNF placement at discharge Remove Perdomo catheter PT OT to see Subjective Date/time seen: 07/11/23 13:40 Interval history: No overnight events. More awake. Coughing less. Denies any shortness of breath. Remains on 1 L oxygen. Uses BiPAP at night. Family brought in his home CPAP. Review of Systems Review of Systems: All systems reviewed & are unremarkable except as noted in HPI and below Exam Narrative: GENERAL:? Elderly, well nourished, non-toxic, in no acute distress. On nasal cannula HEAD: Normocephalic, atraumatic. NECK: Supple. No adenopathy, no masses. RESPIRATORY: Airway patent, Diminished breath sound bilaterally no wheeze or rhonchi CARDIOVASCULAR: Regular rate and rhythm without murmurs, rubs, or gallops. Radial pulses 2+ and equal bilaterally. ABDOMINAL: Soft, nontender, mildly distended, no hepatosplenomegaly. Normoactive BS. MUSCULOSKELETAL: Moves all extremities. Strength/ROM intact without gross deformities. No significant lower extremity edema. SKIN: Warm, dry, normal color. No rashes. NEURO: A&O X2-3, at baseline Follows commands. Speech clear. Cranial nerves II-XII grossly intact. No ataxic movements. PSYCHIATRIC: Appropriate mood and affect. Normal interaction. Objective Data Vital Signs Vital Signs: Vital Signs - 24 hr 07/10/23 13:49 07/10/23 14:15 07/10/23 14:38 Temperature Pulse Rate 83 Respiratory Rate 20 Blood Pressure Pulse Oximetry 91 Oxygen Delivery Nasal Cannula Nasal Cannula Oxygen Flow Rate 1 1 07/10/23 14:00 07/10/23 19:22 07/10/23 20:00 Temperature 98.2 F 99.3 F Pulse Rate 77 76 Respiratory Rate 18 16 Blood Pressure 126/60 107/53 L Pulse Oximetry 91 94 94 Oxygen Delivery Nasal Cannula Oxygen Flow Rate 1 07/10/23 21:20 07/10/23 21:21 07/10/23 21:34 Temperature Pulse Rate 78 79 Respiratory Rate 22 H 22 H Blood Pressure Pulse Oximetry 92 Oxygen Delivery Nasal Cannula Oxygen Flow Rate 1.5
[2023-07-11 17:31] LABS: Glucose Point of Care 106 mg/dl (65-105)
[2023-07-11 20:33] LABS: Glucose Point of Care 139 mg/dl (65-105)
[2023-07-11] MEDS: AZITHROMYCIN 500 MG/NS 250 ML 500 MG/250 ML BAG 250 MG IVPB (20:54)
[2023-07-11] MEDS: WATER FOR IRRIGATION, STERILE 1,000 ML BOTTLE 1000 ML (21:01)
[2023-07-12] VITALS (15 sets, daily range): BP systolic 103–142; BP diastolic 50–54; PULSE 69–87; RESP 18–25; TEMP 36.3–36.7; O2SAT 92–97
[2023-07-12] MEDS: ALBUTEROL SULFATE NEB 2.5 MG/3 ML INH INHALATION ×4 (02:59→20:32)
[2023-07-12] MEDS: IPRATROPIUM BR 0.02% INH SOLN 0.5 MG/2.5 ML VIAL INHALATION ×4 (02:59→20:32)
[2023-07-12] MEDS: CEFEPIME 2 GM/NS 50 ML 2 GM/50 ML BAG IVPB (05:20)
[2023-07-12 06:12] LABS: Basophils Percent Auto 0.4 % (0.2-1.2); Eosinophils Absolute Auto 0.4 K/mm3 (0-0.3); Eosinophils Percent Auto 4.4 % (0-4.4); Hematocrit 32.8 % (42.0-52.0); Hemoglobin 10.5 g/dL (14.0-18.0); Immature Granulocyte Absolute 0.05 K/mm3 (0.00-0.031); Immature Granulocyte Percent A 0.5 % (0-0.5); Lymphocytes Absolute Auto 1.21 K/mm3 (0.9-3.2); Lymphocytes Percent Auto 12.4 % (18.3-44.2); Mean Corpuscular Hemoglobin 30.8 pg (26-34); Mean Corpuscular Volume 96.2 fl (80-100); Mean Platelet Volume 9.9 fl (7.4-10.4); Monocytes Absolute Auto 0.7 K/mm3 (0.1-0.6); Monocytes Percent Auto 6.8 % (2.6-8.5); Neutrophils Absolute Auto 7.3 K/mm3 (1.3-6.7); Neutrophils Percent Auto 75.5 % (45.5-73.1); Platelet Count Result 324 k/mm3 (150-375); Red Blood Count 3.41 M/mm3 (4.6-6.20); Red Cell Distribution Width 14.3 % (11.5-14.5); White Blood Count 9.7 K/mm3 (4.5-10.0)
[2023-07-12 06:41] LABS: Alanine Aminotransferase 20 U/L (6-50); Albumin Level 3.2 g/dL (3.5-5.1); Alkaline Phosphatase 80 U/L (38-126); Anion Gap 3 mmol/L (8-16); Aspartate Amino Transferase 26 U/L (17-59); Bilirubin,Total 0.8 mg/dL (0.2-1.3); Blood Urea Nitrogen 11 mg/dL (9-20); Calcium 8.5 mg/dL (8.4-10.2); Carbon Dioxide 38 mmol/L (22-30); Chloride 99 mmol/L (98-107); Estimated CRCL calculation 105 ml/min; Estimated Glomerular Filt Rate > 60; Glucose 117 mg/dL (65-110); Magnesium 1.9 mg/dL (1.6-2.3); Potassium 3.5 mmol/L (3.4-5.0); Sodium 140 mmol/L (137-145)
[2023-07-12 08:02] LABS: Glucose Point of Care 126 mg/dl (65-105)
[2023-07-12] MEDS: FLUTICASONE PROPIONATE 0.05% NA SPR 16 GM BTL (*BKC) 1 SPRAY NASAL (08:30)
[2023-07-12] MEDS: CELECOXIB 100 MG CAPSULE PO (08:31)
[2023-07-12] MEDS: ASPIRIN 81 MG ENTERIC TABLET PO ×2 (08:31→17:04)
[2023-07-12] MEDS: TAMSULOSIN HCL 0.4 MG CAPSULE PO (08:31)
[2023-07-12] MEDS: THERAPEUTIC MULTIVITAMINS/MINERALS TAB (*BKC) 1 TABLET PO (08:31)
[2023-07-12] MEDS: polyethylene glycoL 3350 17 GM POWD.PACK PO (08:31)
[2023-07-12] MEDS: SENNA/DOCUSATE SODIUM TABLET 1 TAB PO ×2 (08:31→17:04)
[2023-07-12] MEDS: MONTELUKAST SODIUM 10 MG TABLET PO (08:31)
[2023-07-12] MEDS: OMEGA 3 POLYUNSAT FATTY ACIDS 1 GM CAP PO ×2 (08:31→17:04)
[2023-07-12] MEDS: LORATADINE 10 MG TABLET PO (08:32)
[2023-07-12] MEDS: FAMOTIDINE 20 MG TABLET 40 MG PO ×2 (08:32→17:04)
--- NOTE | 2023-07-12 09:47 | PCDIET ---
Pt diet advanced to diabetic consistent carb, intake 75-100% all meals. Glucose well controlled. No nutrition recommendations at this time.
[2023-07-12 12:19] LABS: Glucose Point of Care 157 mg/dl (65-105)
--- NOTE | 2023-07-12 12:46 | PM.PNORT ---
Progress Note: A&P Assessment and Plan (1) Acute respiratory failure with hypoxia and hypercapnia: Code(s): J96.01 - Acute respiratory failure with hypoxia; J96.02 - Acute respiratory failure with hypercapnia Status: Acute Assessment and Plan: Patient feels well this morning. Walked a little bit yesterday. Hopefully walk more today. He is still confused to the month and he thought it was June was 2022. Testing 123 testing His antibiotics have been switched to cefdinir for possible pneumonia versus atelectasis. White count is normal 9.7 hemoglobin stable 10.5. Wound looks fine. Venous duplex ultrasound yesterday was negative in the right leg. Subjective Subjective Date/Time Seen: 07/12/23 12:46 Objective Data Vital Signs Vital Signs: Vital Signs - 24 hr 07/11/23 13:15 07/11/23 13:25 07/11/23 14:20 Temperature Pulse Rate 79 83 Respiratory Rate 20 22 H Blood Pressure Pulse Oximetry Oxygen Delivery High Flow Nasal Cannula Oxygen Flow Rate 1 07/11/23 14:50 07/11/23 20:10 07/11/23 20:48 Temperature 36.2 C L 36.7 C Pulse Rate 90 76 85 Respiratory Rate 16 18 20 Blood Pressure 108/48 L 118/52 L Pulse Oximetry 95 91 Oxygen Delivery Oxygen Flow Rate 07/11/23 20:55 07/11/23 20:56 07/11/23 21:20 Temperature Pulse Rate 86 76 Respiratory Rate 20 18 Blood Pressure Pulse Oximetry 92 92 Oxygen Delivery Autopap CPAP Oxygen Flow Rate 2 07/11/23 20:00 07/12/23 03:01 07/12/23 03:14 Temperature Pulse Rate 82 84 Respiratory Rate 20 20 Blood Pressure Pulse Oximetry 92 Oxygen Delivery Nasal Cannula Oxygen Flow Rate 1 07/12/23 05:06 07/12/23 08:56 07/12/23 08:59 Temperature 36.7 C Pulse Rate 74 87 87 Respiratory Rate 18 20 20 Blood Pressure 142/50 H Pulse Oximetry 96 92 Oxygen Delivery Nasal Cannula Oxygen Flow Rate 2 07/12/23 09:00 07/12/23 09:11 07/12/23 08:32 Temperature Pulse Rate 87 82 Respiratory Rate 20 20 Blood Pressure Pulse Oximetry 92 92 Oxygen Delivery Nasal Cannula Oxygen Flow Rate 2 Intake/Output Intake/Output: Intake & Output 1207/10/23 07/11/23 07/12/23 23:59 23:59 23:59 23:59 Intake Total 460 2690 1730 410 Output Total 3100 950 1050 1000 Balance -2640 1740 680 -590 Meds/Results Medications: Active Medications Generic Name Dose Route Start Last Admin Trade Name Freq PRN Reason Stop Dose Admin Acetaminophen 650 mg 07/08/23 20:37 Acetaminophen 325 Mg Tablet PO Q4H PRN Mild Pain (1-3) or Fever Albuterol 2.5 mg 07/09/23 14:00 07/12/23 08:56 Albuterol Sulfate Neb 2.5 Mg/3 Ml Inh INHALATION 2.5 mg Q6HRT MELANIE Administration Albuterol 2 puff 07/10/23 08:13 Albuterol Sulfate (*Sp) Aerosol 1 Puff INHALATION QID PRN Shortness Of Breath Aspirin 81 mg 07/10/23 09:00 07/12/23 08:31 Aspirin 81 Mg Enteric Tablet PO 81 mg BID MELANIE Administration Azithromycin 500 mg 07/12/23 15:00 Azithromycin 250 Mg Tablet PO 07/12/23 15:01 ONCE ONE Cefdinir 300 mg 07/12/23 21:00 Cefdinir 300 Mg Capsule PO 07/15/23 09:01 Q12HR MELANIE Celecoxib 100 mg 07/11/23 08:00 07/12/23 08:31 Celecoxib 100 Mg Capsule PO 100 mg DAILY@0800 MELANIE Administration Dextrose 12.5 gm 07/09/23 08:46 Dextrose 50% 25 Gm/50 Ml Syringe IV PUSH PRN PRN Hypoglycemia Protocol Duloxetine HCl 60 mg 07/10/23 10:00 Duloxetine Hcl 60 Mg Capsule.Dr PO DAILY MELANIE Famotidine 40 mg 07/10/23 09:00 07/12/23 08:32 Famotidine 20 Mg Tablet PO 40 mg BID MELANIE Administration Fish Oil 1 gm 07/10/23 09:00 07/12/23 08:31 [place] 3 Polyunsat Fatty Acids 1 Gm Cap PO 1 gm BID MELANIE Administration Fluticasone Propionate 1 spray 07/10/23 09:00 07/12/23 08:30 Fluticasone Propionate 0.05% Na Spr 16 Gm Btl (*Bkc) NASAL 1 spray DAILY MELANIE Administration Fluticasone/Umeclidinium/
[2023-07-12] MEDS: AZITHROMYCIN 250 MG TABLET 500 MG PO (14:38)
--- NOTE | 2023-07-12 14:42 | PM.IMPN ---
Progress Note: A&P Assessment and Plan (1) Acute respiratory failure with hypoxia and hypercapnia: Code(s): J96.01 - Acute respiratory failure with hypoxia; J96.02 - Acute respiratory failure with hypercapnia Status: Acute Assessment and Plan: Admit to IMU Continuous BiPAP. ABG reviewed any improved. BiPAP at night now. Will switch to home CPAP. He reports that he has not been using his CPAP while he was at [facility] CTA reviewed with bilateral pneumonia Chest x-ray reviewed RULED OUT FOR PE On vanc cefepime and azithromycin. Nasal MRSA negative. Vancomycin discontinued switched antibiotic to now to cefdinir Pulmonary consulted BNP 120 COVID flu RSV negative Back to his baseline Recheck chest x-ray today (2) Pneumonia: Qualifiers: Laterality: bilateral Lung location: lower lobe of lung Pneumonia type: due to unspecified organism Qualified Code(s): J18.9 - Pneumonia, unspecified organism Code(s): J18.9 - Pneumonia, unspecified organism Status: Acute Assessment and Plan: EXTRACTED ON VANCOMYCIN CEFEPIME AND ZITHROMAX CULTURES IN PROGRESS Nasal nares MRSA negative. Vancomycin stopped (3) Altered mental status: Qualifiers: Altered mental status type: unspecified Qualified Code(s): R41.82 - Altered mental status, unspecified Code(s): R41.82 - Altered mental status, unspecified Status: Acute Assessment and Plan: Likely secondary to 1. CT head reviewed Unclear etiology for hypercapnia Does mild emphysema BiPAP switched to his home CPAP. Apparently while at rehabilitation he has not been using his CPAP at all (4) COPD with emphysema: Code(s): J43.9 - Emphysema, unspecified Status: Acute Assessment and Plan: BREATHING TREATMENTS scheduled CURRENTLY ON BIPAP (5) Total knee replacement status: Code(s): Z96.659 - Presence of unspecified artificial knee joint Status: Acute Assessment and Plan: UNDERGOING REHABILITATION Plan Venous duplex ordered which is pending Cardiomegaly with pulmonary arterial hypertension noted on CTA SNF at discharge at discharge. Recheck chest x-ray Subjective Date/time seen: 07/12/23 14:42 Interval history: No overnight events. Denies any new complaint. Looks a bit short of breath today. On 2 L oxygen via nasal cannula. Review of Systems Review of Systems: All systems reviewed & are unremarkable except as noted in HPI and below Exam Narrative: GENERAL:? Elderly, well nourished, non-toxic, in no acute distress. On nasal cannula HEAD: Normocephalic, atraumatic. NECK: Supple. No adenopathy, no masses. RESPIRATORY: Airway patent, Diminished breath sound bilaterally no wheeze or rhonchi, some conversational dyspnea noted CARDIOVASCULAR: Regular rate and rhythm without murmurs, rubs, or gallops. Radial pulses 2+ and equal bilaterally. ABDOMINAL: Soft, nontender, mildly distended, no hepatosplenomegaly. Normoactive BS. MUSCULOSKELETAL: Moves all extremities. Strength/ROM intact without gross deformities. No significant lower extremity edema. SKIN: Warm, dry, normal color. No rashes. NEURO: A&O X2-3, at baseline Follows commands. Speech clear. Cranial nerves II-XII grossly intact. No ataxic movements. PSYCHIATRIC: Appropriate mood and affect. Normal interaction. Objective Data Vital Signs Vital Signs: Vital Signs - 24 hr 07/11/23 14:50 07/11/23 20:10 07/11/23 20:48 Temperature 97.1 F L 98.0 F Pulse Rate 90 76 85 Respiratory Rate 16 18 20 Blood Pressure 108/48 L 118/52 L Pulse Oximetry 95 91 Oxygen Delivery Oxygen Flow Rate 07/11/23 20:55 07/11/23 20:56 07/11/23 21:20 Temperature Pulse Rate 86 76 Respiratory Rate 20 18 Blood Pressure Pulse Oximetry 92 92 Oxygen Delivery Autopap CPAP Oxygen Flow Rate 2 07/11/23 20:00 07/12/23 03:01 07/12/23 03:14 Temperature Pulse Rate 82 84 Respiratory Rate 20 20 Blood Pressure
[2023-07-12] MEDS: FLUTICASONE/UMECLIDIN/VILANTER 100-62.5-25 MCG ELLIPTA 1 PUFF INHALATION (15:38)
--- NOTE | 2023-07-12 16:48 | PM.PNPUL ---
Progress Note: A&P Assessment and Plan (1) Acute respiratory failure with hypoxia and hypercapnia: Code(s): J96.01 - Acute respiratory failure with hypoxia; J96.02 - Acute respiratory failure with hypercapnia Status: Acute Assessment and Plan: Per the family patient is a never smoker.? He carries a diagnosis of COPD.? I have no PFTs.? His CT scan of the chest on 07/08/2023 shows minimal apical predominant centrilobular emphysema.? His home medicine list includes trilogy 100-62.5-25 at 1 puff q.day. The patient was transferred from inpatient rehab for altered mental status and hypoxemia.? The patient states maybe he vomited but can not fully recall.? It is unclear if the patient was taking oxycodone.? In the emergency department he was hypoxic with a blood gas of 7.29/69/60 and was placed on noninvasive ventilation.? He had no wheezing.? CT angiogram of the chest demonstrated no PE with bibasilar atelectasis versus pneumonia.? He was empirically started on vancomycin, cefepime and azithromycin.? COVID influenza and RSV RT PCR studies negative.? BNP was 120, troponin was negative. 07/09/23:? When I entered the room the patient was on noninvasive ventilation with the AVAPS mode with settings as above.? He was very tachypneic and said it was uncomfortable.? He also had a high leak.? I changed him to a rate of 20, tidal volume 500, minimal EPAP 4, minimal inspiratory pressure for 5, maximal inspiratory pressure 30 and I was able to decrease him to 35% FiO2.? He said this was more comfortable.? The patient said he felt like he was breathing back to his baseline was awake following simple commands and I converted him to a nasal cannula oxygen and titrate him down from 6 L to 2 L. on 2 L nasal cannula his saturations were 93%. Plan:? He is stable off noninvasive ventilator using 2 L/minute. HE can use the NPPV p.r.n. in the day and at night with all sleep. He can use his CPAP from home. MRSA swab is negative.Studies so far aare negative, and he is stable on empiric therapy with cefepime and azithromycin. Subjective Date/time seen: 07/12/23 16:48 Interval history: hospital follow up : 82-year-old man with acute hypoxemic respiratory failure and pneumonia, currently on 2 L a minute, in no distress. PMH: diabetes, hypertension, hyperlipidemia, obstructive sleep apnea on CPAP, COPD. Home sleep study approximately 3-4 months ago and was called back by his physician and told to wear full face mask with CPAP. On 06/23/2023 the patient underwent a right total knee replacement was discharged home on 06/24/2023.? He was discharged home on his home trilogy 100, montelukast 10, fluticasone nasal spray and Eliquis 2.5 q.12 hours.? Patient returned to the emergency department on 06/26 4 weakness and failure to thrive.? His room air saturations were 95%.? He was clear to auscultation.? He had no shortness of breath and is white blood cell count was 10.8 and his creatinine was 0.8.? Patient was discharged to [facility] on 06/30 on cefdinir 300 mg p.o. b.i.d..? Patient continued rehab at the facility and the progress note on 07/07/2023 said his lungs were clear to auscultation room air saturations were 90-91% and he had no shortness of breath. On 07/08/2023 the progress note at 4:00 p.m. said shortness of breath, p.r.n. albuterol treatment was given and a chest x-ray was ordered.? Room air saturations were 97%. On 07/08/2023 at 8:00 p.m. patient presented to the emergency department with altered mental status, low saturations, cough, congestion.? A saturations on room air were 88% and he had rhonchi bilaterally.? His white blood cell count was 7.4, eosinophils were 3.5%, creatinine was 0.8, BNP was 120, troponin was negative, COVID influenza and RSV RT PCR study was negative.? When I talked to the patient he does remember vomiting yesterday but can not remember if he choked on that.? Oxycodone 2.5 mg q.4 hours p.r.n. is also listed on his medicine list
[2023-07-12 17:04] LABS: Glucose Point of Care 136 mg/dl (65-105)
[2023-07-12] MEDS: CEFDINIR 300 MG CAPSULE PO (20:08)
[2023-07-12 20:29] LABS: Glucose Point of Care 132 mg/dl (65-105)
[2023-07-13] VITALS (8 sets, daily range): BP systolic 124; BP diastolic 58; PULSE 68–88; RESP 18–24; TEMP 36.7; O2SAT 91–95
[2023-07-13] MEDS: ALBUTEROL SULFATE NEB 2.5 MG/3 ML INH INHALATION ×2 (01:42→07:43)
[2023-07-13] MEDS: IPRATROPIUM BR 0.02% INH SOLN 0.5 MG/2.5 ML VIAL INHALATION ×2 (01:43→07:43)
[2023-07-13 06:02] LABS: Basophils Percent Auto 0.3 % (0.2-1.2); Eosinophils Absolute Auto 0.5 K/mm3 (0-0.3); Eosinophils Percent Auto 6.8 % (0-4.4); Hematocrit 32.4 % (42.0-52.0); Hemoglobin 10.1 g/dL (14.0-18.0); Immature Granulocyte Absolute 0.03 K/mm3 (0.00-0.031); Immature Granulocyte Percent A 0.4 % (0-0.5); Lymphocytes Percent Auto 17.8 % (18.3-44.2); Mean Corpuscular HGB Conc 31.2 g/dl (32-36); Mean Corpuscular Hemoglobin 30.6 pg (26-34); Mean Corpuscular Volume 98.2 fl (80-100); Monocytes Absolute Auto 0.4 K/mm3 (0.1-0.6); Monocytes Percent Auto 6.2 % (2.6-8.5); Neutrophils Absolute Auto 4.6 K/mm3 (1.3-6.7); Neutrophils Percent Auto 68.5 % (45.5-73.1); Platelet Count Result 320 k/mm3 (150-375); Red Cell Distribution Width 14.6 % (11.5-14.5); White Blood Count 6.7 K/mm3 (4.5-10.0)
[2023-07-13 06:19] LABS: Alanine Aminotransferase 21 U/L (6-50); Albumin Level 3.3 g/dL (3.5-5.1); Alkaline Phosphatase 71 U/L (38-126); Anion Gap 2 mmol/L (8-16); Aspartate Amino Transferase 31 U/L (17-59); Bilirubin,Total 0.7 mg/dL (0.2-1.3); Blood Urea Nitrogen 12 mg/dL (9-20); Calcium 8.9 mg/dL (8.4-10.2); Carbon Dioxide 39 mmol/L (22-30); Chloride 99 mmol/L (98-107); Estimated CRCL calculation 105 ml/min; Estimated Glomerular Filt Rate > 60; Glucose 103 mg/dL (65-110); Magnesium 2.1 mg/dL (1.6-2.3); Potassium 3.7 mmol/L (3.4-5.0); Sodium 140 mmol/L (137-145)
[2023-07-13 08:26] LABS: Glucose Point of Care 97 mg/dl (65-105)
[2023-07-13] MEDS: FLUTICASONE/UMECLIDIN/VILANTER 100-62.5-25 MCG ELLIPTA 1 PUFF INHALATION (08:43)
[2023-07-13] MEDS: FLUTICASONE PROPIONATE 0.05% NA SPR 16 GM BTL (*BKC) 1 SPRAY NASAL (09:50)
[2023-07-13] MEDS: polyethylene glycoL 3350 17 GM POWD.PACK PO (09:50)
[2023-07-13] MEDS: FAMOTIDINE 20 MG TABLET 40 MG PO (09:51)
[2023-07-13] MEDS: MONTELUKAST SODIUM 10 MG TABLET PO (09:51)
[2023-07-13] MEDS: THERAPEUTIC MULTIVITAMINS/MINERALS TAB (*BKC) 1 TABLET PO (09:51)
[2023-07-13] MEDS: ASPIRIN 81 MG ENTERIC TABLET PO (09:51)
[2023-07-13] MEDS: LORATADINE 10 MG TABLET PO (09:51)
[2023-07-13] MEDS: SENNA/DOCUSATE SODIUM TABLET 1 TAB PO (09:51)
[2023-07-13] MEDS: TAMSULOSIN HCL 0.4 MG CAPSULE PO (09:51)
[2023-07-13] MEDS: OMEGA 3 POLYUNSAT FATTY ACIDS 1 GM CAP PO (09:51)
[2023-07-13] MEDS: CELECOXIB 100 MG CAPSULE PO (09:51)
[2023-07-13] MEDS: CEFDINIR 300 MG CAPSULE PO (09:51)
--- NOTE | 2023-07-13 10:32 | PM.DS ---
DS: Admitting Diagnosis Discharge Date 07/13/2023 Admitting Diagnosis Altered mental status DS: Discharge Diagnosis Discharge Diagnosis (1) Acute respiratory failure with hypoxia and hypercapnia: Code(s): J96.01 - Acute respiratory failure with hypoxia; J96.02 - Acute respiratory failure with hypercapnia Status: Acute (2) Pneumonia: Qualifiers: Laterality: bilateral Lung location: lower lobe of lung Pneumonia type: due to unspecified organism Qualified Code(s): J18.9 - Pneumonia, unspecified organism Code(s): J18.9 - Pneumonia, unspecified organism Status: Acute (3) Altered mental status: Qualifiers: Altered mental status type: unspecified Qualified Code(s): R41.82 - Altered mental status, unspecified Code(s): R41.82 - Altered mental status, unspecified Status: Acute (4) COPD with emphysema: Code(s): J43.9 - Emphysema, unspecified Status: Acute (5) Total knee replacement status: Code(s): Z96.659 - Presence of unspecified artificial knee joint Status: Acute DS: Summary Hospital Course Hospital Course: This 82 oral male presented from [facility] due to altered status. Was also hypoxic. Noted to have hypercapnic respiratory failure. Started on BiPAP. Improved on BiPAP. Chest x-ray and CTA with bilateral pneumonia. He was also not using his CPAP while he was at rehabilitation. He recently had knee surgery done. He was started on broad-spectrum antibiotics. Nasal MRSA was negative. Antibiotic was switched to cefdinir. COVID flu RSV was negative. Pulmonary was consulted. He was tapered down to CPAP at night. His altered mental status improved. He was still requiring some amount of oxygen. Which resolved by the time of discharge. He has underlying emphysema which is mild noted on a CTA. Venous duplex was ordered which was negative. He was evaluated by PT OT during the hospital stay and required SNF placement which was arranged with the help of professor of social work. Due to his altered mental status his oxycodone and also duloxetine was discontinued during the hospital stay. Time Spent with Patient Time attestation: Total time spent providing and/or coordinating discharge services: 40 minutes Exam Narrative: GENERAL:? Elderly, well nourished, non-toxic, in no acute distress. On nasal cannula HEAD: Normocephalic, atraumatic. NECK: Supple. No adenopathy, no masses. RESPIRATORY: Airway patent, Diminished breath sound bilaterally no wheeze or rhonchi, some conversational dyspnea noted CARDIOVASCULAR: Regular rate and rhythm without murmurs, rubs, or gallops. Radial pulses 2+ and equal bilaterally. ABDOMINAL: Soft, nontender, mildly distended, no hepatosplenomegaly. Normoactive BS. MUSCULOSKELETAL: Moves all extremities. Strength/ROM intact without gross deformities. No significant lower extremity edema. SKIN: Warm, dry, normal color. No rashes. NEURO: A&O X2-3, at baseline Follows commands. Speech clear. Cranial nerves II-XII grossly intact. No ataxic movements. PSYCHIATRIC: Appropriate mood and affect. Normal interaction. DS: Data Data Completed and Pending Labs on day of discharge: Labs from last 24 hours 07/13/23 07/13/23 07/12/23 08:22 05:33 20:08 WBC 6.7 RBC 3.30 L Hgb 10.1 L Hct 32.4 L MCV 98.2 MCH 30.6 MCHC 31.2 L RDW 14.6 H Plt Count 320 MPV 10.0 Immature Gran % (Auto) 0.4 Neut % (Auto) 68.5 Lymph % (Auto) 17.8 L Teller % (Auto) 6.2 Eos % (Auto) 6.8 H Baso % (Auto) 0.3 Lymph # (Auto) 1.20 Teller # (Auto) 0.4 Eos # (Auto) 0.5 H Baso # (Auto) 0.0 Abs Immat Gran (auto) 0.03 Absolute Neuts (auto) 4.6 Absolute Nucleated RBC 0.0 Nucleated RBC % 0.0 Sodium 140 Potassium 3.7 Chloride 99 Carbon Dioxide 39 H Anion Gap 2 L BUN 12 Creatinine 0.50 L Estim Creat Clear Calc 105 Estimated GFR > 60 Glucose 103 POC Capillary Gluc
[2023-07-13 12:07] LABS: Glucose Point of Care 136 mg/dl (65-105)
== END 2023-07-13 14:40 | DRG 189 ==
LOC: ANHED 20:41 → ANHIMU 22:39 → ANH2MED 07-10 13:57
PROVIDERS: Emergency Medicine; Admitting Provider Internal Medicine; Emergency Provider Physician Assistant; PCP Internal Medicine; Visit Provider Internal Medicine
DX: J96.01 Acute respiratory failure with hypoxia (principal); J18.9 Pneumonia, unspecified organism; J96.02 Acute respiratory failure with hypercapnia; J43.2 Centrilobular emphysema; R41.82 Altered mental status, unspecified; E11.9 Type 2 diabetes mellitus without complications; E78.5 Hyperlipidemia, unspecified; I10 Essential (primary) hypertension; N40.0 Benign prostatic hyperplasia without lower urinary tract symptoms; Z96.651 Presence of right artificial knee joint; Z20.822 Contact with and (suspected) exposure to COVID-19; Z87.891 Personal history of nicotine dependence; Z79.82 Long term (current) use of aspirin; Z79.84 Long term (current) use of oral hypoglycemic drugs; Z98.41 Cataract extraction status, right eye; Z98.42 Cataract extraction status, left eye; Z96.1 Presence of intraocular lens; Z90.49 Acquired absence of other specified parts of digestive tract
CPT/HCPCS: 36415; 36600; 70450; 71045; 71275; 80048; 80053; 81001; 82375; 82805; 82948; 83050; 83605; 83735; 83880; 84484; 85025; 85027; 85610; 85730; 87040; 87081; 87637; 87641; 93005; 93970; 94002; 94003; 94640; 97110; 97116; 97161; 97165; 97530; 97535; 99285; A9270; J0456; J0692; J3370; Q9967